=== PATIENT | male | born 1955 | race Caucasian/White ===

== ENCOUNTER 2017-07-25 00:38 | Inpatient (IN) | payer OTHER ==
[2017-07-25] VITALS (23 sets, daily range): BP systolic 76–106; BP diastolic 43–79; PULSE 90–110; RESP 14–21; Ht 157.5 cm; Wt 82.6 kg
[~2017-07-25] VITALS: Ht 157.5 cm; Wt 82.6 kg
[2017-07-25] MEDS ORDERED: SOD CHLORIDE 0.9% 1,000 ML IV ONE (02:30)
[2017-07-25] MEDS ORDERED: morphine 2 MG INJ IV PRN (02:30)
[2017-07-25] MEDS ORDERED: ONDANSETRON 4 MG INJ IV PRN (02:30)
[2017-07-25] MEDS ORDERED: SOD CHLORIDE 0.9% 1,000 ML IV SCH (03:40)
[2017-07-25] MEDS ORDERED: ALLO100T PO (03:44)
[2017-07-25] MEDS ORDERED: DOCU-144 PO (03:44)
--- NOTE | 2017-07-25 09:06 | HP ---
DATE OF ADMISSION: 07/25/2017 PRESENTING COMPLAINT: Abdominal distention and discomfort. HISTORY OF PRESENT COMPLAINT: This is a 61-year-old male who had presented to the emergency room at an outside hospital with complaints of abdominal pain and a feeling that his abdomen is about to explode. A little bit of history on this patient, he has a history of HCC lymphoma, which had gone into remission a few years back, but came back in April and was restarted on chemotherapy. He undergoes chemotherapy, it sounds like every week and has been doing this since April. However, he has developed ascites, which is thought to be malignant and is scheduled also for a weekly paracentesis. He had his last paracentesis last Wednesday and is due for 1 on Wednesday, but the patient could not wait. His abdomen shows extremely tense. He feels very uncomfortable, feels like he cannot breathe, he cannot lie down still and so he had gone to the emergency room to be evaluated. Over in the emergency room, unfortunately he was noted to have a low blood pressure with systolic in the 80s and as such it was felt that it was not to do a paracentesis at that time. Suggestion was made to admit him and then resuscitate him and do a paracentesis when it was safer. He however, had to be transferred to our facility due to insurance reasons. At this time, his symptoms persist, but he has remained uncomfortable and unable to lie still or flat and blood pressure still is on the low side. Although, he said he felt a little bit better and so he was given something to eat. PAST MEDICAL HISTORY: 1. Hypertension. 2. Lymphoma. SURGICAL HISTORY: Eye surgery in the past. MEDICATIONS: The patient was on: 1. Amlodipine 10 daily, but has not taken any in a long time because of low blood pressure. 2. Claritin 10 mg daily. 3. Tramadol as needed. SOCIAL HISTORY: The patient quit smoking. Does not drink alcohol. Has good family support. is at bedside. REVIEW OF SYSTEMS: A 12 point review of systems pertinent findings as noted in HPI. FAMILY HISTORY: Noncontributory. PHYSICAL EXAMINATION: VITAL SIGNS: His vital signs here, his temperature 98.7, heart rate 107, respiratory rate 20, blood pressure has stayed in the 70s to 100s and systolics and diastolics in the 50s to 60s. Saturation of 94 percent. Has required oxygen via nasal cannula 2 L. He is maintained on room air. He does desaturate to as low as 90. GENERAL: Examination, I found a well-developed gentleman who is quite uncomfortable. FH, NC. Alert and oriented. Head is normocephalic. NECK: No evidence of trauma. HEENT: Pupils equal, round, and reactive to light. There was no scleral jaundice. Oropharynx is clear. Neck supple and nontender. CHEST: Clear to auscultation, but with diminished air entry on both sides. CARDIOVASCULAR: He is mildly tachycardic without murmurs. ABDOMEN: Significantly distended and tense. Bowel sounds are barely audible. However there is no rebound. There is no guarding. SKIN: Devoid of rash or jaundice. BACK: There is no paravertebral tenderness. EXTREMITIES: Lower extremities is positive for pitting edema all the way up to his knee. However, there is no joint swelling or deformity. NEUROLOGICALLY: He has no focal deficit and psychologic he was calm, cooperative with exam. LAB VALUES: Hemoglobin was a little on the low side at 11, platelet count was also a little on the low side at 122 as was his white blood cell count of 3.4 consistent with a pancytopenia, which could be chemo related. On his chemistry had a potassium of 5.3, but there was a note about possible hemolysis, sodium was low at 130 as was his chloride. BUN and creatinine were elevated at 57 and 1.65. Albumin level was low on the low side at 2.7. AST, ALT were mildly elevated at 47. Estimated GFR was calculated to be 42 at that time. Lactic acid was elevated at 3.2. ProBNP was 725, PT 14.8 and INR of 1.2. His EKG was said to have showed sinus tachycardia with a rate of 121 without evidence of active ischemia. Radiology showed elevation of the right diaphragm, causing the right lower lobe atelectasis. With extension of hepatic flexure of the colon may be causing the elevation of diaphragm. Urinalysis did have some proteinuria and white cells. There is no bacteria and there was no blood loss. ASSESSMENT: The patient is a 61-year-old male, who presents with abdominal pain and distention secondary to recurrent ascites, managed as follows: 1. Malignant ascites, recurrent. 2. Abdominal pain and discomfort with shortness of breath secondary to number 1. 3. Recurrent hepatocellular carcinoma, currently on chemotherapy managed out of [facility]. 4. Acute kidney injury. Rule out chronic kidney disease. 5. Pancytopenia, which could be secondary to chemotherapy without gross coagulopathy. 6. Hypertension, which could be as a result of recurrent paracentesis. 7. Lactic acidosis. 8. History of hypertension, but patient is currently hypotensive. 9. Mild hypoxia secondary to tense ascites. ASSESSMENT AND PLAN: Unfortunately the patient is slightly unstable to have a paracentesis done at that time, which will likely improve his symptoms but may worsen his overall systemic picture and as such we will admit him and resuscitate him somewhat. We will commence IV fluid hydration gently and see how his blood pressure responds to that. We will also try to retrieve reports from [facility] to see where he stands with his lymphoma and see what to do after that. I doubt the bacterial peritonitis as patient has no other clinical symptoms other than discomfort. He does not have significant pain. She will be monitored on telemetry floor, will trend lactic acid levels and essentially see how he does. Further interventions will depend on his clinical course. His overall prognosis is guarded. For prophylaxis, he will only be on a PPI as well as SCDs. Dictated By: Macey Li MD /kwesi/magdalena /Document#: [id number]
[2017-07-25 09:27] LABS: INR 1.14; PROTIME 14.6 Sec (12.2-14.2); PT RATIO 1.1
[2017-07-25 09:28] LABS: PARTIAL THROMBOPLASTIN TIME 26.5 Sec (25.0-35.0)
[2017-07-25] MEDS: MIDODRINE 5 MG TAB PO SCH ×3 (09:57→16:59)
[2017-07-25] MEDS: ALLOPURINOL 100 MG TAB PO SCH (09:57)
[2017-07-25 10:32] LABS: ABNORMAL IP MESSAGE 1; HEMATOCRIT 33.1 % (42.0-52.0); HEMOGLOBIN 11.1 g/dl (14.0-18.0); LYMPHOCYTES # 0.1 10^3/ul (0.8-2.9); LYMPHOCYTES % 2.9 % (15.0-51.0); MEAN CORPUSCULAR HGB CONC 33.5 g/dl (32.0-37.0); MEAN CORPUSCULAR VOLUME 86.4 fl (82.0-101.0); MEAN PLATELET VOLUME 9.4 fl (7.4-10.4); MONOCYTE # 0.2 10^3/ul (0.3-0.9); MONOCYTES % 7.3 % (0.0-11.0); NEUTROPHILS % 89.4 % (39.0-77.0); NUCLEATED RED BLOOD CELLS% 0.7 /100WBC (0.0-0.0); PLATELET COUNT 86 10^3/UL (140-415); POSITIVE DIFF @See below; RED BLOOD COUNT 3.83 10^6/ul (4.70-6.10); WHITE BLOOD COUNT 2.8 10^3/ul (4.8-10.8)
[2017-07-25 11:05] LABS: INR 1.16; PROTIME 14.9 Sec (12.2-14.2); PT RATIO 1.2
[2017-07-25 11:06] LABS: PARTIAL THROMBOPLASTIN TIME 27.2 Sec (25.0-35.0)
[2017-07-25 11:09] LABS: ALBUMIN 2.2 g/dl (3.3-4.9); ALBUMIN/GLOBULIN RATIO 1.1; BILIRUBIN,INDIRECT 0.5 mg/dl (0-1.1); BILIRUBIN,TOTAL 0.5 mg/dl (0.2-1.3); CALCIUM 7.7 mg/dl (8.4-10.2); CREATININE 1.08 mg/dl (0.61-1.24); POTASSIUM 4.8 mmol/L (3.5-5.1); TOTAL PROTEIN 4.2 g/dl (6.1-8.1)
--- NOTE | 2017-07-25 12:35 | PN ---
Date/Time of Note Date/Time of Note DATE: 07/25/17 TIME: 12:31 Assessment/Plan VTE Prophylaxis VTE Prophylaxis Intervention: SCD's Lines/Catheters IV C[facility]ter Type (from [facility]): Peripheral IV Urinary Cath still in place: No Assessment/Plan Assessment/Plan 61 yo M with known hx of lymphoma with resultant ascites requiring LVPs here for symptomatic ascites. PLAN LVP. 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 His main complaint is discomfort related to his massive ascites Exam/Review of Systems Vital Signs Vitals Vital Signs Date Time Temp Pulse Resp B/P Pulse Ox O2 Delivery O2 Flow Rate FiO2 07/25/17 08:00 Nasal Cannula 2.0 07/25/17 08:00 97.6 109 20 101/77 95 Intake and Output 07/24/17 07/24/17 07/25/17 14:59 22:59 06:59 Intake Total 1365 ml Output Total 1250 ml Balance 115 ml Exam uncomfortable lungs clear abd with massive ascities 1+ pitting LE edema Results Result Diagram: 07/25/17 1025 07/25/17 1025 Results 24 hrs Laboratory Tests Test 07/25/17 08:07 07/25/17 10:25 Prothrombin Time 14.6 H 14.9 H Prothrombin Time Ratio 1.1 1.2 INR International Normalized Ratio 1.14 1.16 Activated Partial Thromboplast Time 26.5 27.2 Lactic Acid Level 2.1 H Magnesium Level 2.1 White Blood Count 2.8 L Red Blood Count 3.83 L Hemoglobin 11.1 L Hematocrit 33.1 L Mean Corpuscular Volume 86.4 Mean Corpuscular Hemoglobin 29.0 Mean Corpuscular Hemoglobin Concent 33.5 Red Cell Distribution Width 21.0 H Platelet Count 86 L Mean Platelet Volume 9.4 Neutrophils % 89.4 H Lymphocytes % 2.9 L Monocytes % 7.3 Eosinophils % 0.0 Basophils % 0.0 Nucleated Red Blood Cells % 0.7 H Neutrophils # (Manual) 2.5 Lymphocytes # 0.1 L Monocytes # 0.2 L Eosinophils # 0.0 Basophils # 0.0 Nucleated Red Blood Cells # 0.0 Sodium Level 134 L Potassium Level 4.8 Chloride Level 104 Carbon Dioxide Level 22 Anion Gap 13 Blood Urea Nitrogen 45 H Creatinine 1.08 Glucose Level 116 Calcium Level 7.7 L Total Bilirubin 0.5 Direct Bilirubin 0.00 Indirect Bilirubin 0.5 Aspartate Amino Transf (AST/SGOT) 47 H Alanine Aminotransferase (ALT/SGPT) 68 Alkaline Phosphatase 290 H Total Protein 4.2 L Albumin 2.2 L Globulin 2.00 Albumin/Globulin Ratio 1.10 Medications Medications Current Medications Morphine Sulfate (morphine) 2 mg Q2H PRN IV PAIN; Start 07/25/17 at 02:30 Ondansetron HCl (Zofran Inj) 4 mg Q6H PRN IV NAUSEA AND/OR VOMITING; Start at 02:30 Allopurinol (Zyloprim) 100 mg DAILY PO Last administered on 07/25/17 09:57; Admin Dose 100 MG; Start 07/25/17 at 09:00 Midodrine (Proamatine) 5 mg TID@, PO Last administered on 07/25/17 09: 57; Admin Dose 5 MG; Start 07/25/17 at 09:00; Stop 07/26/17 at 08:59 DANIELA MACIEL MD Jul 25, 2017 12:35
[2017-07-25] MEDS ORDERED: LIDOCAINE 1% (MPF) 5 ML VIAL ONE (12:54)
--- NOTE | 2017-07-25 13:34 | RADRPT ---
PROCEDURE: Ultrasound guided paracentesis. CLINICAL INDICATION: Ascites and shortness of breath. COMPARISON: No prior studies are available for comparison. TECHNIQUE: The risks, benefits, and alternatives were explained to the patient and/or the patient's family, inc luding but not limited to bleeding, infection, pain, visceral or vascular damage, shock, and . The patient and/or the patient's family understood the risks and the alternatives and wished to pro ceed with the procedure. Informed written consent was obtained. A procedural time out was performed . The patient's name, date of , and procedure to be performed were verified. Utilizing ultrasound guidance, optimal location for entry to the peritoneal cavity was ascertained. The overlying skin was prepped and draped in the usual sterile fashion. Approximately 10 ml of 1% Xylocaine was injected locally for pain control. Using ultrasound guidance, an 8 Wallisian catheter wa s introduced into the peritoneal cavity in the right lower quadrant without difficulty. FINDINGS: Initial images demonstrate ascites. Approximately 5.95 liters of serous fluid was aspirated and dis carded. The patient tolerated the procedure well without complication. IMPRESSION: 1. Successful ultrasound-guided paracentesis. RPTAT: QQ .Speedy Orosco MD, Date Time Electronically viewed and signed by .Speedy Orosco MD, on 07/25/2017 13:34 .R/
[2017-07-25] MEDS: ALBUMIN HUMAN 25% 100 ML IV SCH ×2 (14:09→16:02)
[2017-07-26] VITALS (9 sets, daily range): BP systolic 86–98; BP diastolic 54–60; PULSE 60–110; RESP 18
[2017-07-26] MEDS: MIDODRINE 5 MG TAB PO SCH (05:39)
[2017-07-26 07:02] LABS: ABNORMAL IP MESSAGE 1; EOSINOPHILS % 0.4 % (0.0-7.0); HEMATOCRIT 32.7 % (42.0-52.0); HEMOGLOBIN 10.5 g/dl (14.0-18.0); LYMPHOCYTES # 0.1 10^3/ul (0.8-2.9); LYMPHOCYTES % 3.6 % (15.0-51.0); MEAN CORPUSCULAR HEMOGLOBIN 27.9 pg (29.0-33.0); MEAN CORPUSCULAR HGB CONC 32.1 g/dl (32.0-37.0); MONOCYTE # 0.4 10^3/ul (0.3-0.9); MONOCYTES % 12.5 % (0.0-11.0); NEUTROPHILS % 82.8 % (39.0-77.0); NUCLEATED RED BLOOD CELLS% 1.1 /100WBC (0.0-0.0); PLATELET COUNT 75 10^3/UL (140-415); POSITIVE DIFF @See below; RED BLOOD COUNT 3.76 10^6/ul (4.70-6.10); RED CELL DISTRIBUTION WIDTH 21.4 % (11.5-14.5); WHITE BLOOD COUNT 2.8 10^3/ul (4.8-10.8)
[2017-07-26 07:34] LABS: ALBUMIN 2.3 g/dl (3.3-4.9); ALBUMIN/GLOBULIN RATIO 1.27; BILIRUBIN,INDIRECT 0.5 mg/dl (0-1.1); BILIRUBIN,TOTAL 0.5 mg/dl (0.2-1.3); POTASSIUM 4.8 mmol/L (3.5-5.1); TOTAL PROTEIN 4.1 g/dl (6.1-8.1)
[2017-07-26] MEDS: ALLOPURINOL 100 MG TAB PO SCH (08:41)
[2017-07-26] MEDS ORDERED: ALBUMIN HUMAN 25% 50 ML IV STA (11:45)
--- NOTE | 2017-07-26 11:47 | PDOCDIS ---
Discharge Instructions CONDITION Patient Condition: Stable HOME CARE INSTRUCTIONS: Your diet recommendation is: 2 gm sodium diet FOLLOW UP/APPOINTMENTS Follow-up Plan Follow-up with [facility] hematology/oncology team, patient has appointment today at 2 PM. 2.Follow up with primary care physician in 1 week If you don't have one please let someone know, we can give you resources that may help you pick one. You may also call your insurance company to assign one to you. Review your medication list with your nurse before leaving and if you need new prescriptions please let your nurse know. I may have made changes to your home medications or given you new prescriptions, please let your primary doctor know as well. Stay compliant with your medications and report any side effects to your PCP or pharmacist. Return to the ER if you have any concerns and cannot reach your doctors or call your insurance company, they usually have a nurse that can help you. 3. Call 911 or go to the nearest emergency room if experiencing loss of consciousness, dizziness, chest pain, shortness of breath, vomiting/abdominal pain, speech difficulties, motor weakness or any unusual symptoms. MELITA CUELLAR NP Jul 26, 2017 11:47
[2017-07-26] MEDS ORDERED: FURO-110 PO (11:50)
--- NOTE | 2017-07-26 16:00 | DS ---
Date/Time of Note Date/Time of Note DATE: 07/26/17 TIME: 15:54 Discharge Summary Admission/Discharge Info Admit Date/Time Jul 25, 2017 at 01:37 Discharge Date/Time Jul 26, 2017 at 13:30 Discharge Diagnosis 1. Malignant ascites, recurrent.status post paracentesis 2. Hepatocellular carcinoma, currently on chemotherapy managed out of [facility]. 3. Pancytopenia,likely secondary to chemotherapy 4. History of HTN, now with asymptomatic hypotension 2/2 multiple paracentesis. 7. Lactic acidosis. Patient Condition: Stable Procedures 07/25/17. Successful ultrasound-guided paracentesis, 5.95 L out Hospital Course This is a 61-year-old male with a past medical history of hypertension, former smoker, lymphoma, pancytopenia who is also undergoing chemotherapy, malignant ascites requiring multiple paracentesis, who initially presented to outside hospitalemergency room for evaluation of abdominal distention making him very uncomfortable and difficulty with breathing. He was noted with low blood pressure which upon presentation, patient had low blood pressure and was not able to do paracentesis and a decision was made to admit him. Therefore, he was transferred to [facility] for inpatient workup he was then transferred to [facility] due to insurance status. Blood pressure was monitored closely. On 07/25/2017, he had undergone successful paracentesis with 5.95 L of serous fluid out. Patient tolerated the procedure well. Postprocedure, patient was treated with albumin 25% 2 doses. His labs and vital signs remained stable. As the plan was to have oncology evaluation in house and getting further reports from [facility], patient and family requested to get discharged as they have a follow-up appointment at [facility] with his regular oncologist today at 2 PM. Patient was feeling back to his baseline. He was able to tolerate diet and activities well. Abdominal distention was back to baseline without any further discomfort. There was no further respiratory compromise. At this time, it is safe to discharge patient as his symptoms have improved and he can follow-up with his oncologist today at [address] [facility]. Low dose diuretics was recommended up on discharge with BP monitoring due to third-spacing of fluids and recurrent frequent paracentesis. Patient and family in agreement for discharge. Disposition: Patient will be discharged home today as he has an outpatient appointment at [facility] at 2 PM for his oncology workup. Approximately 60 minutes was spent on coordinating the discharge on this patient. Case discussed with Dr. Rosa. Home Meds Active Scripts Furosemide* (Lasix*) 20 Mg Tablet, 20 MG PO BID, #60 TAB Prov:MELITA CUELLAR V. HEARING AID REPAIRER 07/26/17 Reported Medications Docusate Sodium* (Colace*) 100 Mg Capsule, 100 MG PO BID Y for CONSTIPATION, # 60 CAP 07/25/17 Allopurinol* (Allopurinol*) 100 Mg Tablet, 100 MG PO DAILY, TAB 07/25/17 Follow-up Plan OME CARE INSTRUCTIONS: Your diet recommendation is: 2 gm sodium diet FOLLOW UP/APPOINTMENTS Follow-up Plan Follow-up with [facility] hematology/oncology team, patient has appointment today at 2 PM. 2.Follow up with primary care physician in 1 week If you don't have one please let someone know, we can give you resources that may help you pick one. You may also call your insurance company to assign one to you. Review your medication list with your nurse before leaving and if you need new prescriptions please let your nurse know. I may have made changes to your home medications or given you new prescriptions, please let your primary doctor know as well. Stay compliant with your medications and report any side effects to your PCP or pharmacist. Return to the ER if you have any concerns and cannot reach your doctors or call your insurance company, they usually have a nurse that can help you. 3. Call 911 or go to the nearest emergency room if experiencing loss of consciousness, dizziness, chest pain, shortness of breath, vomiting/abdominal pain, speech difficulties, motor weakness or any unusual symptoms. Primary Care Provider Not On Staff Doctor Pending Labs Laboratory Tests Test 07/26/17 06:04 White Blood Count 2.810^3/ul (4.8-10.8) Red Blood Count 3.7610^6/ul (4.70-6.10) Hemoglobin 10.5g/dl (14.0-18.0) Hematocrit 32.7% (42.0-52.0) Mean Corpuscular Volume 87.0fl (82.0-101.0) Mean Corpuscular Hemoglobin 27.9pg (29.0-33.0) Mean Corpuscular Hemoglobin Concent 32.1g/dl (32.0-37.0) Red Cell Distribution Width 21.4% (11.5-14.5) Platelet Count 7510^3/UL (140-415) Mean Platelet Volume 10.0fl (7.4-10.4) Neutrophils % 82.8% (39.0-77.0) Lymphocytes % 3.6% (15.0-51.0) Monocytes % 12.5% (0.0-11.0) Eosinophils % 0.4% (0.0-7.0) Basophils % 0.0% (0.0-2.0) Nucleated Red Blood Cells % 1.1/100WBC (0.0-0.0) Neutrophils # (Manual) 2.310^3/ul (1.7-7.5) Lymphocytes # 0.110^3/ul (0.8-2.9) Monocytes # 0.410^3/ul (0.3-0.9) Eosinophils # 0.010^3/ul (0.0-0.5) Basophils # 0.010^3/ul (0.0-0.1) Nucleated Red Blood Cells # 0.010^3/ul (0.0-0.0) Sodium Level 137mmol/L (135-144) Potassium Level 4.8mmol/L (3.5-5.1) Chloride Level 104mmol/L (97-110) Carbon Dioxide Level 23mmol/L (21-31) Anion Gap 15 (8-16) Blood Urea Nitrogen 36mg/dl (7-20) Creatinine 1.00mg/dl (0.61-1.24) Glucose Level 102mg/dl (70-220) Calcium Level 8.0mg/dl (8.4-10.2) Total Bilirubin 0.5mg/dl (0.2-1.3) Direct Bilirubin 0.00mg/dl (0.00-0.20) Indirect Bilirubin 0.5mg/dl (0-1.1) Aspartate Amino Transf (AST/SGOT) 46IU/L (15-46) Alanine Aminotransferase (ALT/SGPT) 59IU/L (13-69) Alkaline Phosphatase 304IU/L (42-121) Total Protein 4.1g/dl (6.1-8.1) Albumin 2.3g/dl (3.3-4.9) Globulin 1.80g/dl (1.3-3.2) Albumin/Globulin Ratio 1.27 MELITA CUELLAR NP Jul 26, 2017 16:00
== END 2017-07-26 13:30 | disposition home or self-care (01) | DRG 435 ==
LOC: MS1 01:37 → EDSEX 01:37 → ICU 06:46 → TEL 17:28
PROVIDERS: ADMIT Family Medicine; ATTEND Family Medicine
PROC: 0W9G3ZZ Drainage of Peritoneal Cavity, Percutaneous Approach (ICD-10-PCS; principal; 2017-07-25)
DX: C22.9 Malignant neoplasm of liver, not specified as primary or secondary (principal); D61.810 Antineoplastic chemotherapy induced pancytopenia; R18.0 Malignant ascites; I95.9 Hypotension, unspecified; N17.9 Acute kidney failure, unspecified; E87.2 Acidosis; Z87.891 Personal history of nicotine dependence; I10 Essential (primary) hypertension; R09.02 Hypoxemia; Z85.72 Personal history of non-Hodgkin lymphomas
CPT/HCPCS: 80053; 83605; 83735; 85025; 85610; 85730; 87081; J7030; P9047

== ENCOUNTER 2017-07-30 10:40 | Emergency (ER) | payer MEDICAID, OTHER ==
[~2017-07-30] VITALS: Ht 167.6 cm; Wt 76.0 kg
[~2017-07-30 10:40] MED LIST: ALLO100T PO; DOCU-144 PO; FURO-110 PO
[2017-07-30 10:47] VITALS: Ht 167.6 cm; Wt 76.0 kg
--- NOTE | 2017-07-30 11:20 | QN ---
Documentation Comment Patient presents for abdominal pain and ascites. I did review the laboratory studies from just a few days ago which showed normal coagulation studies. I ordered an ultrasound-guided paracentesis for this patient. A full H&P will be done once the patient is seen and fully evaluated. Medical screening exam was initiated. ROSITA LEPE MD Jul 30, 2017 11:20
[2017-07-30] MEDS ORDERED: SPIR25TA PO (12:15)
[2017-07-30] MEDS ORDERED: LIDOCAINE 1% (MPF) 5 ML VIAL ONE (13:31)
--- NOTE | 2017-07-30 13:53 | RADRPT ---
PROCEDURE: Ultrasound guided paracentesis. CLINICAL INDICATION: Ascites and shortness of breath. COMPARISON: 07/25/2017. TECHNIQUE: The risks, benefits, and alternatives were explained to the patient and/or the patient's family, inc luding but not limited to bleeding, infection, pain, visceral or vascular damage, shock, and . The patient and/or the patient's family understood the risks and the alternatives and wished to pro ceed with the procedure. Informed written consent was obtained. A procedural time out was performed . The patient's name, date of , and procedure to be performed were verified. Utilizing ultrasound guidance, optimal location for entry to the peritoneal cavity was ascertained. The overlying skin was prepped and draped in the usual sterile fashion. Approximately 10 ml of 1% Xylocaine was injected locally for pain control. Using ultrasound guidance, an 8 Portuguese catheter wa s introduced into the peritoneal cavity in the left lower quadrant without difficulty. FINDINGS: Initial images demonstrate ascites. Approximately 3.8 liters of serous fluid was aspirated and disc arded. The patient tolerated the procedure well without complication. IMPRESSION: 1. Successful ultrasound-guided paracentesis. RPTAT: QQ .Speedy Orosco MD, Date Time Electronically viewed and signed by .Speedy Orosco MD, on 07/30/2017 13:52 .R/
--- NOTE | 2017-07-30 14:15 | ERD ---
ER Documentation Chief Complaint Date/Time DATE: 07/30/17 TIME: 14:13 Chief Complaint abdominal pain Hx of ascites HPI Patient is a 61-year-old male with a history of stomach cancer and ascites who presents with "water in my belly". It started in April after he was diagnosed with stomach cancer. He has had multiple paracentesis done since then and his last was on Wednesday. He says the swelling is worse when he lays down. He has no shortness of breath and no fevers. He denies pain. ROS All systems reviewed and are negative except as per history of present illness. Medications Home Meds Active Scripts Furosemide* (Lasix*) 20 Mg Tablet, 20 MG PO BID, #60 TAB Prov:MELITA CUELLAR V. TUYERE FITTER 07/26/17 Reported Medications Spironolactone* (Aldactone*) 25 Mg Tablet, 25 MG PO DAILY, #30 TAB 07/30/17 Allopurinol* (Allopurinol*) 100 Mg Tablet, 100 MG PO DAILY, TAB 07/25/17 Discontinued Reported Medications Docusate Sodium* (Colace*) 100 Mg Capsule, 100 MG PO BID Y for CONSTIPATION, # 60 CAP 07/25/17 Allergies Allergies: Coded Allergies: No Known Allergy (Unverified , 07/30/17) PMhx/Soc History of Surgery: No (BMT 11/2015) Anesthesia Reaction: No Hx Neurological Disorder: No Hx Respiratory Disorders: No Hx Cardiac Disorders: No Hx Psychiatric Problems: No Hx Miscellaneous Medical Probl: Yes (lymphoma since 10yrs ago (remission& recurrence)) Hx Alcohol Use: No Hx Substance Use: No Hx Tobacco Use: Yes FmHx Family History: diabetes Physical Exam Vitals Vital Signs Date Time Temp Pulse Resp B/P Pulse Ox O2 Delivery O2 Flow Rate FiO2 07/30/17 10:47 98.3 121 20 96/57 95 Physical Exam Const: Chronically ill Head: Atraumatic Eyes: Normal Conjunctiva ENT: Normal External Ears, Nose and Mouth. Neck: Full range of motion..~ No meningismus. Resp: Clear to auscultation bilaterally Cardio: Regular rate and rhythm, no murmurs Abd: Soft, Distended abdomen with positive fluid wave Skin: Jaundice Back: No midline or flank tenderness Ext: No cyanosis, or edema Neur: Awake and alert Psych: Normal Mood and Affect Results 24 hrs Current Medications Medications (Trade) Dose Ordered Sig/Yanira Route PRN Reason Start Time Stop Time Status Last Admin Dose Admin Lidocaine (Xylocaine 1% (Mpf)) 5 ml STK-MED ONCE .ROUTE 07/30/17 13:31 07/30/17 13:32 DC 07/30/17 13:44 Procedures/MDM Patient is a 61-year-old male with stomach cancer and ascites who presents with ascites. At this point I doubt spontaneous bacterial peritonitis. The patient came in for a paracentesis. He had laboratories done on July 26 and I do not feel these need to be repeated. The patient had an ultrasound-guided paracentesis and feels better. He will be discharged home and can follow-up with his primary doctor [facility] within 24-48 hours. He can return for any worsening symptoms. Given his age and comorbidity his prognosis is poor. Departure Diagnosis: Primary Impression: Ascites Ascites type: malignant Qualified Code: R18.0 - Malignant ascites Condition: Fair Patient Instructions: Ascites Referrals: Your doctor at [facility] Additional Instructions: Llame al doctor MAJULIANN y cecilia gomez RON PARA DENTRO DE 1-2 SHERMAN.Dgale a la secretaria que nosotros le instruimos hacer esta ron.Avise o llame si campa condicin se empeora antes de la ron. Regresa aqui si peor o no mejor. ROSITA LEPE MD Jul 30, 2017 14:15
[2017-07-30 14:51] VITALS: BP 85/52; PULSE 122; RESP 20
== END 2017-07-30 14:52 | disposition home or self-care (01) ==
LOC: E/R 10:40
DX: C16.9 Malignant neoplasm of stomach, unspecified (principal); R18.0 Malignant ascites; Z87.891 Personal history of nicotine dependence
CPT/HCPCS: Z7502; Z7610

== ENCOUNTER 2017-08-01 09:54 | Inpatient (IN) | payer MEDICAID ==
[~2017-08-01] VITALS: Ht 157.5 cm; Wt 80.0 kg
[~2017-08-01 09:54] MED LIST changes: -DOCU-144 PO; +SPIR25TA PO
[2017-08-01] MEDS ORDERED: SODIUM CHLORIDE 0.9% 1L BAG IV* STA (11:01)
[2017-08-01] MEDS ORDERED: ONDANSETRON 4 MG INJ IV STA (11:01)
--- NOTE | 2017-08-01 11:08 | ERA ---
ER Documentation Chief Complaint Date/Time DATE: 08/01/17 TIME: 11:04 Chief Complaint NAUSEA /VOMITING H/O ASCITIES HPI Patient is a 61-year-old male who presents with gradual onset, constant, moderate to severe generalized weakness associated with near syncope for 2-3 days. Patient has also had several episodes of emesis of green fluid. The patient reports having dark stools but no diarrhea. Patient denies chest pain, shortness of breath, fever, abdominal pain. 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 The patient's last chemotherapy was July 22. ROS All systems reviewed and are negative except as per history of present illness. Medications Home Meds Active Scripts Furosemide* (Lasix*) 20 Mg Tablet, 20 MG PO BID, #60 TAB Prov:MELITA CUELLAR V. PACKAGING TECH 07/26/17 Reported Medications Ondansetron Hcl* (Zofran*) 8 Mg Tab, 8 MG PO Q8H Y for NAUSEA AND OR VOMITING, TAB 08/01/17 Spironolactone* (Aldactone*) 25 Mg Tablet, 25 MG PO DAILY, #30 TAB 07/30/17 Allopurinol* (Allopurinol*) 100 Mg Tablet, 100 MG PO DAILY, TAB 07/25/17 Discontinued Reported Medications Docusate Sodium* (Colace*) 100 Mg Capsule, 100 MG PO BID Y for CONSTIPATION, # 60 CAP 07/25/17 Allergies Allergies: Coded Allergies: No Known Allergy (Unverified , 08/01/17) PMhx/Soc Past medical history: Lymphoma Past surgical history: None Social history: No tobacco, alcohol or illicit drugs History of Surgery: No (BMT 11/2015) Anesthesia Reaction: No Hx Neurological Disorder: No Hx Respiratory Disorders: No Hx Cardiac Disorders: No Hx Psychiatric Problems: No Hx Miscellaneous Medical Probl: Yes (lymphoma since 10yrs ago (remission& recurrence)) Hx Alcohol Use: No Hx Substance Use: No Hx Tobacco Use: Yes Smoking Status: Former smoker FmHx Family History: No coronary disease, No diabetes Physical Exam Vitals Vital Signs Date Time Temp Pulse Resp B/P Pulse Ox O2 Delivery O2 Flow Rate FiO2 08/01/17 15:12 98.3 126 16 88/61 97 Room Air 2.0 08/01/17 13:00 98.1 127 18 84/59 97 Room Air 2.0 08/01/17 12:50 122 20 97 Nasal Cannula 2.0 08/01/17 12:00 98.1 69 16 89/62 100 Room Air 08/01/17 09:57 98.1 66 18 98/54 100 Physical Exam Const: Alert, no acute distress Head: Atraumatic Eyes: Conjunctival pallor, no icterus ENT: Normal External Ears, Nose and Mouth.Tacky mucous membranes Neck: Full range of motion..~ No meningismus. Resp: Clear to auscultation bilaterally, No wheezes, no rales Cardio: Tachycardia, regularrhythm, no murmurs Abd: Soft, non tender, Mild distention. Skin: No petechiae or rashes Back: No midline or flank tenderness Ext: No cyanosis,1+ edema to left lower extremity, 3+ edema to right lower extremity Neur: Awake and alert, Cranial nerves II through XII intact bilaterally, strength and sensation full in 4 extremities. Psych: Normal Mood and Affect Result Diagram: 08/01/17 1100 08/01/17 1330 Results 24 hrs Laboratory Tests Test 08/01/17 11:00 08/01/17 13:30 08/01/17 14:00 08/01/17 14:21 White Blood Count 8.510^3/ul Red Blood Count 4.4610^6/ul Hemoglobin 12.8g/dl Hematocrit 38.4% Mean Corpuscular Volume 86.1fl Mean Corpuscular Hemoglobin 28.7pg Mean Corpuscular Hemoglobin Concent 33.3g/dl Red Cell Distribution Width 23.4% Platelet Count 91816^3/UL Mean Platelet Volume 10.3fl Neutrophils % 81.8% Lymphocytes % 7.3% Monocytes % 10.0% Eosinophils % 0.0% Basophils % 0.1% Nucleated Red Blood Cells % 0.2/100WBC Neutrophils # (Manual) 6.910^3/ul Lymphocytes # 0.610^3/ul Monocytes # 0.910^3/ul Eosinophils # 0.010^3/ul Basophils # 0.010^3/ul Nucleated Red Blood Cells # 0.010^3/ul Prothrombin Time 14.3Sec Prothrombin Time Ratio 1.1 INR International Normalized Ratio 1.11 Activated Partial Thromboplast Time 25.8Sec Stool Occult Blood NEGATIVE Sodium Level 127mmol/L 128mmol/L Potassium Level 6.5mmol/L 5.3mmol/L Chloride Level 98mmol/L 105mmol/L Carbon Dioxide Level 18mmol/L 18mmol/L Anion Gap 18 10 Blood Urea Nitrogen 45mg/dl 44mg/dl Creatinine 2.52mg/dl 2.15mg/dl Glucose Level 142mg/dl 147mg/dl Lactic Acid Level 5.5mmol/L Calcium Level 9.6mg/dl 8.4mg/dl Total Bilirubin 0.7mg/dl Direct Bilirubin 0.00mg/dl Indirect Bilirubin 0.7mg/dl Aspartate Amino Transf (AST/SGOT) 45IU/L Alanine Aminotransferase (ALT/SGPT) 58IU/L Alkaline Phosphatase 240IU/L Troponin I 0.021ng/ml Total Protein 4.7g/dl Albumin 2.6g/dl Globulin 2.10g/dl Albumin/Globulin Ratio 1.23 Urine Color YELLOW Urine Clarity CLOUDY Urine pH 5.0 Urine Specific [place] 1.016 Urine Ketones NEGATIVEmg/dL Urine Nitrite NEGATIVEmg/dL Urine Bilirubin NEGATIVEmg/dL Urine Urobilinogen NEGATIVEmg/dL Urine Leukocyte Esterase NEGATIVELeu/ul Urine Microscopic RBC 1/HPF Urine Microscopic WBC 5/HPF Urine Squamous Epithelial Cells FEW/HPF Urine Bacteria FEW/HPF Urine Hyaline Casts MODERATE/HPF Urine Mucus MODERATE/HPF Urine Hemoglobin NEGATIVEmg/dL Urine Glucose 1+mg/dL Urine Total Protein 1+mg/dl Bedside Glucose 115mg/dL Test 08/01/17 15:20 Lactic Acid Level 3.2mmol/L Current Medications Medications (Trade) Dose Ordered Sig/Yanira Route PRN Reason Start Time Stop Time Status Last Admin Dose Admin Sodium Chloride (NS) 2,260 ml BOLUS OVER 2 HOURS STAT IV* 08/01/17 11:01 08/01/17 11:03 DC 08/01/17 11:32 Ondansetron HCl (Zofran Inj) 4 mg ONCE STAT IV 08/01/17 11:01 08/01/17 11:03 DC 08/01/17 11:32 Albuterol 10 mg 10 mg ONCE STAT HHN 08/01/17 12:11 08/01/17 12:13 DC 08/01/17 12:49 Ceftriaxone Sodium (Rocephin) 50 ml @ 100 mls/hr ONCE ONCE IVPB 08/01/17 12:30 08/01/17 12:59 DC 08/01/17 12:30 Insulin Human Regular (Humulin R) 6 unit ONCE ONCE IV 08/01/17 12:30 08/01/17 12:31 DC 08/01/17 14:38 Dextrose (D50w Syringe) 50 ml ONCE ONCE IV 08/01/17 12:30 08/01/17 12:31 DC 08/01/17 13:02 Vancomycin HCl VANCOMYCIN PER PHARMACY PER PROTOCOL XX 08/01/17 16:00 UNV Metronidazole 100 ml @ 100 mls/hr ONCE ONCE IVPB 08/01/17 16:00 08/01/17 16:59 Albumin Human (Albumin Human 25%) 50 ml @ 100 mls/hr ONCE ONCE IV 08/01/17 16:00 08/01/17 16:29 Lidocaine (Xylocaine 1% (Mdv) 20 ml) 10 ml ONCE ONCE IM 08/01/17 16:00 08/01/17 16:01 DC Lidocaine/ Epinephrine 20 ml 20 ml STK-MED ONCE .ROUTE 08/01/17 16:02 08/01/17 16:03 DC Norepinephrine (Levophed) 250 ml @ ud STK-MED ONCE .ROUTE 08/01/17 16:02 08/01/17 16:03 DC Procedures/MDM EKG read by me: Time 1526, rate 128 Rhythm: Sinus tachycardia [place]: Normal Intervals: Short AR interval ST-T waves: no ischemic changes Ectopy: No Q-waves: No Impression: Sinus tachycardia without evidence of ischemia Central Line Placement by me: Patient consented, sterilely draped, full prep, gown, glove, mask, time out performed. Anesthesia: 1% lidocaine locally Location: Left subclavian: Pending Device: Multiple lumen Technique: Seldinger technique. Secured with suture. Results: Venous return from all ports with easy saline flush. No complications. Guide wire retrieved and disposed of. Chest X-ray 1V: Pending MDM: Patient is a 61-year-old male with lymphoma who presents to the ER with presyncope for 2 days. He was found to be hypotensive and tachycardia, so a septic workup was initiated. There is no evidence of fever or leukocytosis, but the patient does have lactic acidosis. There is no physical exam findings suggestive of infectious source, and chest x-ray and urinalysis are not suggestive of infection. On physical exam there is low suspicion for SBP, but there was not a large fluid collection that was amenable to paracentesis in the ER. The patient was found to have acute renal failure which may be due to sepsis versus fluid shift from frequent paracentesis. He was given IV fluids, but his lactic acid remained elevated. I will give him albumin due to low underlying albumin. I do not suspect hepatorenal syndrome due to lack of diagnosis of cirrhosis. There is no evidence of anemia or GI bleed. The patient has slightly elevated mild to moderate hyperkalemia and mild hyponatremia. He was given IV insulin and dextrose for hyperkalemia and on repeat testing his potassium had improved. A central line was placed for refractory hypotension. He will be started on pressors. He was given broad- spectrum antibiotics and cultures were sent. I will check a cortisol level in case of underlying hypoadrenalism. He delayed paracentesis to be performed by IR as an inpatient if felt to be clinically indicated. He will be admitted to the ICU by Dr. Rosa. Critical Care Time: 35 minutes Treatments/Evaluations: Close monitoring and treatment of unstable vital signs, cardiorespiratory, and neurologic status, while maintaining tight balance of fluid, respiratory, and cardiac interventions. This time includes discussing the case with the patient and the patient's family. This time does not include all procedures stated elsewhere in this record. This time also includes reviewing old records, labs and radiological studies. This time includes examining and re-examining the patient. Additionally, this time also includes arranging care with admitting and consulting physicians. Departure Diagnosis: Primary Impression: Hypotension Qualified Code: I95.9 - Hypotension, unspecified hypotension type Additional Impressions: Lactic acidosis Acute renal insufficiency Hyperkalemia Hyponatremia Condition: Serious SUSAN CAZARES MD Aug 01, 2017 11:08
[2017-08-01] MEDS ORDERED: ZOF8 PO (11:26)
[2017-08-01 11:39] LABS: ABNORMAL IP MESSAGE 1; BASOPHILS % 0.1 % (0.0-2.0); HEMATOCRIT 38.4 % (42.0-52.0); HEMOGLOBIN 12.8 g/dl (14.0-18.0); LYMPHOCYTES # 0.6 10^3/ul (0.8-2.9); LYMPHOCYTES % 7.3 % (15.0-51.0); MEAN CORPUSCULAR HEMOGLOBIN 28.7 pg (29.0-33.0); MEAN CORPUSCULAR HGB CONC 33.3 g/dl (32.0-37.0); MEAN CORPUSCULAR VOLUME 86.1 fl (82.0-101.0); MEAN PLATELET VOLUME 10.3 fl (7.4-10.4); MONOCYTE # 0.9 10^3/ul (0.3-0.9); NEUTROPHILS % 81.8 % (39.0-77.0); NUCLEATED RED BLOOD CELLS% 0.2 /100WBC (0.0-0.0); POSITIVE DIFF @See below; RED BLOOD COUNT 4.46 10^6/ul (4.70-6.10); RED CELL DISTRIBUTION WIDTH 23.4 % (11.5-14.5); WHITE BLOOD COUNT 8.5 10^3/ul (4.8-10.8)
[2017-08-01 11:40] LABS: PLATELET COUNT 130 10^3/UL (140-415)
[2017-08-01 12:01] LABS: ALBUMIN 2.6 g/dl (3.3-4.9); ALBUMIN/GLOBULIN RATIO 1.23; BILIRUBIN,INDIRECT 0.7 mg/dl (0-1.1); BILIRUBIN,TOTAL 0.7 mg/dl (0.2-1.3); CALCIUM 9.6 mg/dl (8.4-10.2); CREATININE 2.52 mg/dl (0.61-1.24); TOTAL PROTEIN 4.7 g/dl (6.1-8.1)
[2017-08-01 12:05] LABS: INR 1.11; PROTIME 14.3 Sec (12.2-14.2); PT RATIO 1.1
[2017-08-01 12:06] LABS: PARTIAL THROMBOPLASTIN TIME 25.8 Sec (25.0-35.0)
--- NOTE | 2017-08-01 12:07 | RADRPT ---
PROCEDURE: US Lower extremity Venous. CLINICAL INDICATION: Pain and swelling TECHNIQUE: Multiple sonographic images of the right lower extremity deep venous system was obtaine d utilizing grayscale, color-flow, compressive sonography and doppler imaging with augmentation. Th e images were reviewed on a PACS workstation. COMPARISON: None. FINDINGS: There is normal compressibility and flow within the right common femoral, deep femoral, superficial femoral, posterior tibial, peroneal and popliteal veins. IMPRESSION: No sonographic evidence for deep venous thrombosis. RPTAT:AAJJ Physician Ina Date Time Electronically viewed and signed by Physician Ina on 08/01/2017 12:07 HANS/
[2017-08-01 12:09] LABS: POTASSIUM 6.5 mmol/L (3.5-5.1); TROPONIN-I 0.021 ng/ml (0.00-0.12)
[2017-08-01] MEDS ORDERED: ALBUTEROL 0.083% (NEB) 2.5 MG/3 ML AMP HHN STA (12:11)
--- NOTE | 2017-08-01 12:14 | RADRPT ---
PROCEDURE: Chest radiograph CLINICAL INDICATION: Possible Sepsis. COMPARISON: None relevant listed. TECHNIQUE: Single frontal chest radiograph. FINDINGS: Veil like opacity obscures the right diaphragm and costophrenic sulcus, consistent with a pleural ef fusion. The right upper lung left lung are clear. The lungs are clear. No pleural effusion or focal parenchymal opacity. The cardiomediastinal silhouette is normal. No suspicious bone lesion. Mild endplate spurring throughout the thoracic spine. IMPRESSION: Small right pleural effusion. RPTAT: PP Physician Rich Date Time Electronically viewed and signed by Physician Rich on 08/01/2017 12:13 LG/
[2017-08-01] MEDS ORDERED: INSULIN REGULAR, HUMAN 100 UNIT/1 ML 3ML VIAL IV ONE (12:30)
[2017-08-01] MEDS ORDERED: CEFTRIAXONE 2 GM/50 ML (PMX) 50 ML IVPB ONE (12:30)
[2017-08-01] MEDS ORDERED: DEXTROSE 50% 50 ML SYRINGE IV ONE (12:30)
[2017-08-01 14:07] LABS: CALCIUM 8.4 mg/dl (8.4-10.2); CREATININE 2.15 mg/dl (0.61-1.24); POTASSIUM 5.3 mmol/L (3.5-5.1)
[2017-08-01 14:47] LABS: ADD UMIC YES; UR ASCORBIC ACID NEGATIVE (NEGATIVE); UR BACTERIA FEW /HPF (NONE SEEN); UR BILIRUBIN (Dip) NEGATIVE (NEGATIVE); UR BLOOD (Dip) NEGATIVE (NEGATIVE); UR CLARITY CLOUDY (CLEAR); UR COLOR YELLOW (YELLOW); UR GLUCOSE (Dip) 1+ mg/dL (NEGATIVE); UR KETONES (Dip) NEGATIVE (NEGATIVE); UR LEUKOCYTE ESTERASE (Dip) NEGATIVE Leu/ul (NEGATIVE); UR MUCUS MODERATE /HPF (NONE SEEN); UR NITRITE (Dip) NEGATIVE (NEGATIVE); UR RBC 1 /HPF (0-5); UR SPECIFIC GRAVITY (Dip) 1.016 (1.003-1.030); UR SQUAMOUS EPITHELIAL CELL FEW /HPF (FEW); UR TOTAL PROTEIN (Dip) 1+ mg/dl (NEGATIVE); UR UROBILINOGEN (Dip) NEGATIVE (NEGATIVE)
[2017-08-01] MEDS ORDERED: metroNIDAZOLE 500 MG/NS (PMX) 100 ML IVPB ONE (16:00)
[2017-08-01] MEDS ORDERED: ALBUMIN HUMAN 25% 50 ML IV ONE (16:00)
[2017-08-01] MEDS ORDERED: VANCOMYCIN IV PER PHARMACY XX SCH (16:00)
[2017-08-01] MEDS ORDERED: LIDOCAINE 1% (MDV) 20 ML INJ IM ONE (16:00)
[2017-08-01] MEDS ORDERED: NORepinephrine 8MG/250 ML (PMX 250 ML ONE (16:02)
[2017-08-01] MEDS ORDERED: LIDOCAINE 2%/EPI MPF (SDV) 20 ML VIAL ONE (16:02)
--- NOTE | 2017-08-01 16:53 | HP ---
Date/Time of Note Date/Time of Note DATE: 08/01/17 TIME: 16:46 Assessment/Plan VTE Prophylaxis VTE Prophylaxis Intervention: SCD's Assessment/Plan Chief Complaint/Hosp Course Impression and plan 1. Near syncope. Possibly from dehydration considering patient's low blood pressure. Will provide with IV fluids for now. Follow-up on echocardiogram as well as carotid Doppler. Patient denies any complete loss of consciousness but does report having some dizziness and near fainting spells. 2. Hypotension with tachycardia. Possibly from dehydration. Will provide IV fluids. 3. Acute renal insufficiency. Patient with no reported renal history. Medications to be renally dosed. Will get v belt inspector to follow. Of note patient does report having less reported. 4. Hyperkalemia. In the setting of renal insufficiency. Will provide with Kayexalate as needed. Will get v belt inspector to follow. 5. Hyponatremia. Continue on IV fluids. 6. Lactic acidosis. Continue IVF. Follow-up on cultures. Afebrile at present. 7. Anemia. Likely of chronic disease. Monitor CBC. Admission process times greater than 40 minutes Discussed plan of care with Dr. Victoria Problems: HPI/ROS Admit Date/Time Admit Date/Time Hx of Present Illness This is a 61-year-old male with history of hypertension, and lymphoma diagnosed in 2005 who came to [facility] due to reports of increased dizziness as well as abdominal distention. Of note patient was recently hospitalized on July 25, 2017 for which she initially came in for recurrent malignant ascites. He was discharged 3 days prior to this admission. Since his discharge he again noticed that his abdomen became enlarged again with reported dizziness. Denies any actual fainting but does report some near syncope. He did come to [facility] due to the aformentiond issues. Of note he also did report that his urine output was a little bit lower before. He also had his last chemotherapy on July 22, 2017. On examination he had labs done with sodium 127 potassium of 6.5 BUN of 45 and creatinine of 2.52. Prior to this he denies any history of kidney disease. Patient was noted to be with blood pressure as low as 84/59 and tachycardic. He denies any chest pain or shortness of breath or dysuria or any subjective fevers. She does report having some nausea. We will evaluate him for the aformentiond issues. ROS 12 point review of systems obtained and entirely negative except that mentioned in history of present illness PMH/Family/Social Past Medical History Medical/surgical history 1. Lymphoma diagnosed in 2005 2. Hypertension 3. Reported retina eye surgery on the left side Social History Alcohol Use: none Smoking Status: Former smoker Drug Use: none Exam/Review of Systems Vital Signs Vitals Vital Signs Date Time Temp Pulse Resp B/P Pulse Ox O2 Delivery O2 Flow Rate FiO2 08/01/17 16:44 98.1 130 18 90/65 97 Room Air 08/01/17 15:12 2.0 Exam Constitutional: alert, oriented Psych: nl mood/affect Head: normocephalic Eyes: nl conjunctiva Neck: No jvd Respiratory: clear to auscultation, normal air movement Cardiovascular: regular rate and rhythm Gastrointestinal: other (Protuberant nontender), soft Musculoskeletal: swelling (Bilateral lower extremities) Neurological: LOGISTICS OPERATIONS MANAGER II-XII intact, nl mental status, nl speech Labs Result Diagram: 08/01/17 1100 08/01/17 1330 Medications Medications Current Medications Metronidazole 100 ml @ 100 mls/hr ONCE ONCE IVPB ; Start 08/01/17 at 16:00; Stop 08/01/17 at 16:59 Vancomycin HCl 1.5 gm/Sodium Chloride 250 ml @ 83.333 mls/ hr ONCE@17 IVPB ; Start 08/01/17 at 17:00; Stop 08/01/17 at 21:00 Vancomycin HCl (Vancocin) 250 ml @ 125 mls/hr Q24H IVPB ; Start 08/02/17 at 17: 00 Ondansetron HCl (Zofran Inj) 4 mg Q6H PRN IV NAUSEA AND/OR VOMITING; Start 08/01 at 17:00; Status UNV Acetaminophen (Tylenol Tab) 650 mg Q6H PRN PO PAIN LEVEL 1-3 OR FEVER; Start at 17:00; Status UNV Acetaminophen (Tylenol Supp) 650 mg Q6H PRN [place] PAIN LEVEL 1-3 OR FEVER; Start 08/01/17 at 17:00; Status UNV Acetaminophen/ Hydrocodone Bitart ([place] (5/325)) 1 tab Q6H PRN PO MODERATE PAIN LEVEL 4-6; Start 08/01/17 at 17:00; Status UNV Acetaminophen/ Hydrocodone Bitart ([place] (5/325)) 2 tab Q6H PRN PO SEVERE PAIN LEVEL 7-10; Start 08/01/17 at 17:00; Status UNV Morphine Sulfate (morphine) 2 mg Q4H PRN IV SEVERE PAIN LEVEL 7-10; Start at 17:00; Status UNV Docusate Sodium (Colace) 100 mg Q12H PRN PO CONSTIPATION; Start 08/01/17 at 17: 00; Status UNV Magnesium Hydroxide (Milk Of Mag) 30 ml DAILY PRN PO CONSTIPATION; Start at 17:00; Status UNV Bisacodyl (Dulcolax Supp) 10 mg DAILY PRN [place] CONSTIPATION; Start 08/01/17 at 17: 00; Status UNV Pantoprazole 40 mg 40 mg DAILY@06 IV ; Start 08/02/17 at 06:00; Status UNV Albumin Human 250 ml @ 250 mls/hr ONCE ONCE IV ; Start 08/01/17 at 17:00; Stop 08/01/17 at 17:59; Status UNV MICHAEL THOMPSON Aug 01, 2017 16:53
[2017-08-01] MEDS ORDERED: ALBUMIN HUMAN 5% 250 ML IV ONE (17:00)
[2017-08-01] MEDS ORDERED: DOCUSATE SODIUM 100 MG CAP PO PRN (17:00)
[2017-08-01] MEDS ORDERED: HYDROCODONE/APAP (5/325) TAB PO PRN ×2 (17:00)
[2017-08-01] MEDS ORDERED: BISACODYL 10 MG SUPP PR PRN (17:00)
[2017-08-01] MEDS ORDERED: NACL 0.9% 3 ML SYG IV SCH (17:00)
[2017-08-01] MEDS: SOD CHLORIDE 0.9% 1,000 ML IV SCH (17:00)
[2017-08-01] MEDS ORDERED: VANCOMYCIN 1.5 GM in SOD CHLORIDE 0.9% 250 ML IVPB SCH (17:00)
[2017-08-01] MEDS ORDERED: MAGNESIUM HYDROXIDE 30ML CUP PO PRN (17:00)
[2017-08-01] MEDS ORDERED: NORepinephrine 8MG/250 ML (PMX 250 ML IV SCH (17:00)
[2017-08-01] MEDS ORDERED: ACETAMINOPHEN 325 MG TAB PO PRN (17:00)
[2017-08-01 17:05] LABS: D-DIMER 3911.64 ng/ml (<460)
[2017-08-01] MEDS: PIPER-TAZO 2.25 GM (PMX) 50 ML IVPB SCH (18:45)
--- NOTE | 2017-08-01 18:55 | RADRPT ---
PROCEDURE: US Carotids. CLINICAL INDICATION: Near syncope TECHNIQUE: Multiple sonographic of the carotid bifurcation region and vertebral arteries were obta ined utilizing zhang scale, duplex and color-flow imaging. COMPARISON: None available FINDINGS: RIGHT CAROTID MEASUREMENTS: PSV (cm/s)EDV (cm/s) Common Carotid [id number] Internal Carotid Artery - [id number] Internal Carotid Artery - [id number] Internal Carotid Artery - [id number] External Carotid Artery-45 Vertebral Artery-37 PSVR (ICA/CCA)0.9 LEFT CAROTID MEASUREMENTS: PSV (cm/s)EDV (cm/s) Common Carotid [id number] Internal Carotid Artery - [id number] Internal Carotid Artery - [id number] Internal Carotid Artery - [id number] External Carotid Artery-46 Vertebral Artery-52 PSVR (ICA/CCA)0.8 There is antegrade flow within the vertebral arteries bilaterally. RPTAT:HJJR IMPRESSION: 1. No evidence for hemodynamically significant stenosis - validated velocity measurements with angio graphic measurements, velocity criteria are extrapolated from diameter data as defined by the Societ y of Radiologists in Ultrasound Consensus Conference Radiology 2003; 229;340-346. This study does i ndirectly reference the measurement of the distal ICA diameter as the denominator for stenosis measu rement. 2. Antegrade flow in the vertebral arteries bilaterally. Physician Humble Date Time Electronically viewed and signed by Physician Humble on 08/01/2017 18:55 JR/
[2017-08-02] VITALS (65 sets, daily range): BP systolic 77–121; BP diastolic 47–88; PULSE 129–147; RESP 18–32; TEMP 97.9; Ht 157.5 cm; Wt 80.0 kg
[2017-08-02 00:13] LABS: ABNORMAL IP MESSAGE 1; BASOPHILS % 0.1 % (0.0-2.0); HEMATOCRIT 32.3 % (42.0-52.0); LYMPHOCYTES # 0.3 10^3/ul (0.8-2.9); LYMPHOCYTES % 3.5 % (15.0-51.0); MEAN CORPUSCULAR HEMOGLOBIN 29.8 pg (29.0-33.0); MEAN CORPUSCULAR HGB CONC 34.1 g/dl (32.0-37.0); MEAN CORPUSCULAR VOLUME 87.5 fl (82.0-101.0); MEAN PLATELET VOLUME 9.9 fl (7.4-10.4); MONOCYTES % 10.4 % (0.0-11.0); NEUTROPHILS % 85.3 % (39.0-77.0); PLATELET COUNT 140 10^3/UL (140-415); POSITIVE DIFF @See below; RED BLOOD COUNT 3.69 10^6/ul (4.70-6.10); WHITE BLOOD COUNT 9.6 10^3/ul (4.8-10.8)
[2017-08-02] MEDS: PIPER-TAZO 2.25 GM (PMX) 50 ML IVPB SCH ×5 (00:35→23:02)
[2017-08-02 00:41] LABS: ALBUMIN 2.1 g/dl (3.3-4.9); ALBUMIN/GLOBULIN RATIO 1.31; BILIRUBIN,INDIRECT 0.4 mg/dl (0-1.1); BILIRUBIN,TOTAL 0.4 mg/dl (0.2-1.3); CALCIUM 8.7 mg/dl (8.4-10.2); CREATININE 2.35 mg/dl (0.61-1.24); MAGNESIUM 1.8 mg/dl (1.7-2.5); PHOSPHORUS 5.7 mg/dl (2.5-4.9); POTASSIUM 5.4 mmol/L (3.5-5.1); TOTAL PROTEIN 3.7 g/dl (6.1-8.1); URIC ACID 8.3 mg/dl (3.1-7.9)
[2017-08-02] MEDS: ONDANSETRON 4 MG INJ IV PRN ×3 (04:05→23:02)
[2017-08-02] MEDS: PANTOPRAZOLE 40 MG INJ IV SCH (05:32)
[2017-08-02 05:45] LABS: ABNORMAL IP MESSAGE 1; BASOPHILS % 0.2 % (0.0-2.0); HEMATOCRIT 36.7 % (42.0-52.0); HEMOGLOBIN 12.1 g/dl (14.0-18.0); LYMPHOCYTES # 0.4 10^3/ul (0.8-2.9); LYMPHOCYTES % 3.4 % (15.0-51.0); MEAN CORPUSCULAR HEMOGLOBIN 28.8 pg (29.0-33.0); MEAN CORPUSCULAR VOLUME 87.4 fl (82.0-101.0); MEAN PLATELET VOLUME 10.1 fl (7.4-10.4); MONOCYTE # 0.9 10^3/ul (0.3-0.9); MONOCYTES % 8.7 % (0.0-11.0); NEUTROPHILS % 86.8 % (39.0-77.0); PLATELET COUNT 143 10^3/UL (140-415); POSITIVE DIFF @See below; RED CELL DISTRIBUTION WIDTH 23.2 % (11.5-14.5); WHITE BLOOD COUNT 10.3 10^3/ul (4.8-10.8)
[2017-08-02 06:18] LABS: ALBUMIN 2.2 g/dl (3.3-4.9); ALBUMIN/GLOBULIN RATIO 1.15; BILIRUBIN,INDIRECT 0.4 mg/dl (0-1.1); BILIRUBIN,TOTAL 0.4 mg/dl (0.2-1.3); CALCIUM 9.1 mg/dl (8.4-10.2); CHOL/HDL RATIO 6.6 RATIO; CREATININE 2.53 mg/dl (0.61-1.24); MAGNESIUM 1.9 mg/dl (1.7-2.5); PHOSPHORUS 6.2 mg/dl (2.5-4.9); POTASSIUM 5.8 mmol/L (3.5-5.1); TOTAL PROTEIN 4.1 g/dl (6.1-8.1)
[2017-08-02 06:28] LABS: T3 UPTAKE 50.7 % (23.5-40.5)
[2017-08-02 06:41] LABS: THYROID STIMULATING HORMONE 2.23 MIU/L (0.465-4.680)
[2017-08-02] MEDS: SOD CHLORIDE 0.9% 1,000 ML IV SCH ×2 (09:40→23:01)
[2017-08-02] MEDS ORDERED: NA POLYST SULFON 15 GM/60 ML BTL PO ONE (10:00)
--- NOTE | 2017-08-02 10:06 | PN ---
Date/Time of Note Date/Time of Note DATE: 08/02/17 TIME: 10:02 Assessment/Plan VTE Prophylaxis VTE Prophylaxis Intervention: heparin Assessment/Plan Chief Complaint/Hosp Course 1. Near syncope. Most probably secondary to hypotension. Carotid Dopplers negative for any hemodynamically significant stenosis. Pending 2D echocardiogram. 2. Hypotension. Etiology unclear. The patient requiring pressors. On empiric antibiotics for any underlying sepsis with underlying septic shock. Cultures pending. Will obtain paracentesis with fluid study to rule out any underlying spontaneous bacterial peritonitis. 3. Hepatocellular lymphoma with malignant ascites. Undergoes chemotherapy at [facility]. Continue supportive care. 4. Recurrent ascites. Malignant. Will order paracentesis. 5. Acute kidney injury. Nonoliguric. Etiology could be hemodynamics versus others. Use nephrotoxic medications with caution. Pending nephrology evaluation. 6. Hyperkalemia. Most probably secondary to #4. Will treat the patient with potassium exchange resins. 7. Lactic acidosis. Etiology unclear. Probably secondary to acute kidney injury versus possible underlying sepsis. Continue IV hydration. 8. Hyponatremia. Probably secondary to acute kidney injury. Monitor. Nephrology to follow the patient. 9. Anemia. Normocytic and hypochromic. Most probably anemia of chronic disease. Monitor H&H closely. 10. Right lower extremity edema. Doppler study negative for any DVT. 10. Fluids, electrolytes, and nutrition. Renal diet. 11. DVT prophylaxis. Subcutaneous heparin. 12. Gastrointestinal prophylaxis. Proton pump inhibitors. 13. Plan. Continue pressors for blood pressure support. Obtain paracentesis with culture of paracentesis fluid. Give a single dose of Kayexalate. Case discussed with Dr. Li. Plan of care was explained to the patient's spouse was at the bedside and the patient's son over the phone. Critical care time: 45 minutes. Problems: Subjective 24 Hr Interval Summary Free Text/Dictation Complains of abdominal distention. Remains on pressors. Exam/Review of Systems Vital Signs Vitals Vital Signs Date Time Temp Pulse Resp B/P Pulse Ox O2 Delivery O2 Flow Rate FiO2 08/02/17 08:00 130 20 101/58 97 Nasal Cannula 2.0 08/02/17 06:20 97.9 Intake and Output 08/01/17 08/01/17 08/02/17 15:00 23:00 07:00 Intake Total 2460 ml Balance 2460 ml Exam General: Adequately build 61 year-old male lying in bed in no apparent distress. HEENT: Normocephalic, atraumatic. Eyes: Anicteric sclerae, conjunctivae clear. ENT: Nasal septum midline, oral mucosa moist. Neck supple, no JVD noticed. Respiratory: Bilaterally clear breath sounds. No use of accessory muscles of respiration. No adventitious breath sounds. Cardiovascular: S1, S2 heard. No murmurs or gallops. Tachycardia. Abdomen: Soft and nontender. Distended. Bowel sounds positive in all 4 quadrants. Genitourinary: Deferred. Extremities: No cyanosis, no clubbing. Right lower extremity edema. Peripheral pulses palpable. Neurologic: Cranial nerves II through XII grossly intact. The patient is awake, alert, and oriented. Skin: Normal skin turgor. No skin rashes. Results Result Diagram: 08/02/17 0522 08/02/17 0522 Results 24 hrs Laboratory Tests Test 08/01/17 11:00 08/01/17 13:30 08/01/17 14:00 08/01/17 14:21 White Blood Count 8.5 # Red Blood Count 4.46 L Hemoglobin 12.8 #L Hematocrit 38.4 L Mean Corpuscular Volume 86.1 Mean Corpuscular Hemoglobin 28.7 L Mean Corpuscular Hemoglobin Concent 33.3 Red Cell Distribution Width 23.4 H Platelet Count 130 #L Mean Platelet Volume 10.3 Neutrophils % 81.8 H Lymphocytes % 7.3 L Monocytes % 10.0 Eosinophils % 0.0 Basophils % 0.1 Nucleated Red Blood Cells % 0.2 H Neutrophils # (Manual) 6.9 Lymphocytes # 0.6 L Monocytes # 0.9 Eosinophils # 0.0 Basophils # 0.0 Nucleated Red Blood Cells # 0.0 Prothrombin Time 14.3 H Prothrombin Time Ratio 1.1 INR International Normalized Ratio 1.11 Activated Partial Thromboplast Time 25.8 D-Dimer 3911.64 H D-Dimer Comment Stool Occult Blood NEGATIVE Sodium Level 127 L 128 L Potassium Level 6.5 *H 5.3 H Chloride Level 98 105 Carbon Dioxide Level 18 L 18 L Anion Gap 18 H 10 # Blood Urea Nitrogen 45 H 44 H Creatinine 2.52 H 2.15 H Glucose Level 142 147 Lactic Acid Level 5.5 *H Calcium Level 9.6 8.4 Total Bilirubin 0.7 Direct Bilirubin 0.00 Indirect Bilirubin 0.7 Aspartate Amino Transf (AST/SGOT) 45 Alanine Aminotransferase (ALT/SGPT) 58 Alkaline Phosphatase 240 H Troponin I 0.021 Total Protein 4.7 L Albumin 2.6 L Globulin 2.10 Albumin/Globulin Ratio 1.23 Urine Color YELLOW Urine Clarity CLOUDY A Urine pH 5.0 Urine Specific Evans 1.016 Urine Ketones NEGATIVE Urine Nitrite NEGATIVE Urine Bilirubin NEGATIVE Urine Urobilinogen NEGATIVE Urine Leukocyte Esterase NEGATIVE Urine Microscopic RBC 1 Urine Microscopic WBC 5 Urine Squamous Epithelial Cells FEW Urine Bacteria FEW A Urine Hyaline Casts MODERATE Urine Mucus MODERATE Urine Hemoglobin NEGATIVE Urine Glucose 1+ H Urine Total Protein 1+ H Bedside Glucose 115 Test 08/01/17 15:20 08/01/17 17:30 08/01/17 23:41 08/02/17 05:22 Lactic Acid Level 3.2 *H 3.0 *H B-Type Natriuretic Peptide 1140 H Random Cortisol 41.9 White Blood Count 9.6 10.3 Red Blood Count 3.69 L 4.20 L Hemoglobin 11.0 L 12.1 L Hematocrit 32.3 L 36.7 L Mean Corpuscular Volume 87.5 87.4 Mean Corpuscular Hemoglobin 29.8 28.8 L Mean Corpuscular Hemoglobin Concent 34.1 33.0 Red Cell Distribution Width 23.0 H 23.2 H Platelet Count 140 143 Mean Platelet Volume 9.9 10.1 Neutrophils % 85.3 H 86.8 H Lymphocytes % 3.5 L 3.4 L Monocytes % 10.4 8.7 Eosinophils % 0.0 0.0 Basophils % 0.1 0.2 Nucleated Red Blood Cells % 0.0 0.0 Neutrophils # (Manual) 8.2 H 8.9 H Lymphocytes # 0.3 L 0.4 L Monocytes # 1.0 H 0.9 Eosinophils # 0.0 0.0 Basophils # 0.0 0.0 Nucleated Red Blood Cells # 0.0 0.0 Sodium Level 129 L 130 L Potassium Level 5.4 H 5.8 H Chloride Level 104 104 Carbon Dioxide Level 19 L 19 L Anion Gap 11 13 Blood Urea Nitrogen 45 H 46 H Creatinine 2.35 H 2.53 H Glucose Level 114 118 Uric Acid 8.3 H Calcium Level 8.7 9.1 Phosphorus Level 5.7 H 6.2 H Magnesium Level 1.8 1.9 Total Bilirubin 0.4 0.4 Direct Bilirubin 0.00 0.00 Indirect Bilirubin 0.4 0.4 Aspartate Amino Transf (AST/SGOT) 36 43 Alanine Aminotransferase (ALT/SGPT) 47 53 Alkaline Phosphatase 188 H 229 H Total Protein 3.7 #L 4.1 L Albumin 2.1 L 2.2 L Globulin 1.60 1.90 Albumin/Globulin Ratio 1.31 1.15 Hemoglobin A1c 6.0 H Triglycerides Level 187 H Cholesterol Level 133 LDL Cholesterol, Calculated 76 HDL Cholesterol 20 L Cholesterol/HDL Ratio 6.6 Thyroid Stimulating Hormone (TSH) 2.230 Free Thyroxine Index 3.85 Thyroxine (T4) 7.6 Triiodothyronine (T3) Uptake 50.7 H Medications Medications Current Medications Vancomycin HCl (Vancocin) 250 ml @ 125 mls/hr Q24H IVPB ; Start 08/02/17 at 17: 00 Ondansetron HCl (Zofran Inj) 4 mg Q6H PRN IV NAUSEA AND/OR VOMITING Last administered on 08/02/17t 04:05; Admin Dose 4 MG; Start 08/01/17 at 17:00 Acetaminophen (Tylenol Tab) 650 mg Q6H PRN PO PAIN LEVEL 1-3 OR FEVER; Start at 17:00 Acetaminophen (Tylenol Supp) 650 mg Q6H PRN [place] PAIN LEVEL 1-3 OR FEVER; Start 08/01/17 at 17:00 Acetaminophen/ Hydrocodone Bitart ([place] (5/325)) 1 tab Q6H PRN PO MODERATE PAIN LEVEL 4-6; Start 08/01/17 at 17:00 Acetaminophen/ Hydrocodone Bitart ([place] (5/325)) 2 tab Q6H PRN PO SEVERE PAIN LEVEL 7-10; Start 08/01/17 at 17:00 Morphine Sulfate (morphine) 2 mg Q4H PRN IV SEVERE PAIN LEVEL 7-10; Start at 17:00 Docusate Sodium (Colace) 100 mg Q12H PRN PO CONSTIPATION; Start 08/01/17 at 17: 00 Magnesium Hydroxide (Milk Of Mag) 30 ml DAILY PRN PO CONSTIPATION; Start at 17:00 Bisacodyl (Dulcolax Supp) 10 mg DAILY PRN [place] CONSTIPATION; Start 08/01/17 at 17: 00 Pantoprazole 40 mg 40 mg DAILY@06 IV Last administered on 08/02/17 05:32; Admin Dose 40 MG; Start 08/02/17 at 06:00 Piperacillin Sod/ Tazobactam Sod 50 ml @ 100 mls/hr Q6 IVPB Last administered on 08/02/17 07:09; Admin Dose 100 MLS/HR; Start 08/01/17 at 18:00 Sodium Chloride 1,000 ml @ 60 mls/hr [id number] IV Last administered on 08/01/17 17:00; Admin Dose 60 MLS/HR; Start 08/01/17 at 17:00 Norepinephrine 250 ml @ 1.875 mls/ hr TITRATE IV Last administered on 18:29; Admin Dose 13.125 MLS/HR; Start 08/01/17 at 17:00 Norepinephrine/ Dextrose (Levophed/D5W) 500 ml @ 1.87 mls/hr TITRATE IV ; Start 08/01/17 at 17:30 ARELI BRANNON NP Aug 02, 2017 10:06
--- NOTE | 2017-08-02 10:32 | RADRPT ---
PROCEDURE: Ultrasound of the bilateral lower extremity venous system. CLINICAL INDICATION: Bilateral lower extremity edema. TECHNIQUE: Mejia scale with and without compression, color doppler, spectral doppler of the venous system of the bilateral lower extremities was performed. Venous augmentation maneuvers were utilized . COMPARISON: 08/01/2017 FINDINGS: RIGHT: Common femoral vein:Patent and compressible. Femoral vein:Patent and compressible. Popliteal vein:Patent and compressible. Visualized calf veins:Patent and compressible. Soft tissues:Normal LEFT: Common femoral vein:Patent and compressible. Femoral vein:Patent and compressible. Popliteal vein:Patent and compressible. Visualized calf veins:Patent and compressible. Soft tissues:Normal IMPRESSION: 1. No evidence of deep vein thrombosis. RPTAT: [facility] Physician Jamie Date Time Electronically viewed and signed by Physician Jamie on 08/02/2017 10:26 /
--- NOTE | 2017-08-02 11:57 | CONS ---
DATE OF ADMISSION: 08/01/2017 DATE OF CONSULTATION: 08/02/2017 REASON FOR CONSULTATION: Acute kidney injury, hyperkalemia. REFERRING PHYSICIAN: Dr. Corona. HISTORY OF PRESENT ILLNESS: This is a 61-year-old male with a past medical history of hypertension, history of lymphoma diagnosed in 2005, who came to [facility] with reports of dizziness and abdominal distention. The patient was recently hospitalized on 07/25/2017, with history of malignant ascites. The patient at that time was recently discharged. Since discharge, he again noted abdominal enlargement as well as dizziness. The patient came to the hospital. Upon arrival, the patient noted to have sodium 127, potassium 6.5, BUN 45, creatinine 2.52. He was hypotensive and tachycardic. The patient was subsequently started on IV fluids and IV antibiotics for underlying sepsis. He was then transferred to the intensive care unit. In terms of patient's renal history, the patient had previously normal baseline renal function. During the last several days, in addition to abdominal distension, patient is also having nausea, vomiting, decreased oral intake. PAST MEDICAL HISTORY: As stated above. History of lymphoma, hypertension. PAST SURGICAL HISTORY: Previous biopsy. ALLERGIES: NO KNOWN DRUG ALLERGIES. SOCIAL HISTORY: Does not drink, smoke, or do drugs. MEDICATIONS: The patient's medications have been reviewed. REVIEW OF SYSTEMS: Fourteen-point review of systems conducted. Pertinent positives in HPI, otherwise negative. PHYSICAL EXAMINATION: VITAL SIGNS: Blood pressure 101/58, respirations 20, pulse 130, temperature 97.9. HEENT: Head is normocephalic. NECK: Supple. CARDIAC: Heart is tachycardic. LUNGS: Diminished breath sounds at the base. ABDOMEN: Soft. Positive ascites with positive fluid wave. EXTREMITIES: Negative for clubbing, cyanosis. Trace edema. DERMATOLOGIC: Clean. No rashes. MUSCULOSKELETAL: No joint effusion. NEUROLOGIC: No focal deficits. LABORATORY: Sodium 130, potassium 5.8, chloride 104, BUN 46, creatinine 2.53. White count 10.3, hemoglobin 10.1, hematocrit 36.7, platelet count is 143. The patient's urinalysis was reviewed. Chest x-ray shows no acute findings. Extremity ultrasound negative for deep venous thrombosis. Carotid shows no significant stenosis. IMPRESSION AND PLAN: This is a 61 of male presents with: 1. Nonoliguric acute kidney injury with previously baseline normal creatinine. Etiology of current acute kidney injury is likely multifactorial secondary to sepsis, questionable intra- abdominal hypertension, hemodynamics, questionable tubular injury. The patient's urinalysis shows evidence of pyuria, casts and +1 proteinuria. Otherwise benign sediment. Plan at this point is to repeat urinalysis with microanalysis. We will check urine electrolytes. Check a renal ultrasound. Agree with doing a paracentesis. Would continue IV fluids. Continue pressor support and maintain mean arterial pressure of 65. Monitor strict Is and Os. Continue broad-spectrum antibiotics. We will monitor closely. If the patient's renal function does not improve, and if the patient's hyperkalemia does not respond to medical management, would consider renal replacement therapy. 2. Hyperkalemia, likely secondary to Aldactone effect in conjunction with acute kidney injury. At this point, continue current medical management as stated above. The patient is status post Kayexalate. Monitor potassium levels closely. If they do not improve, will consider renal placement therapy for clearance. 3. Hyponatremia secondary to acute kidney injury. Decrease free water urinary excretion. Continue to monitor sodium levels. 4. Metabolic acidosis secondary to acute kidney injury. Elevated lactic acid. Continue to monitor. Consider ABG. No need for bicarbonate drip. 5. Anemia. Monitor H and H levels. 6. Mineral bone disorder. Monitor calcium and phosphorus levels. 7. Septic shock. Underlying source unclear. Continue broad- spectrum antibiotics. Monitor. 8. Hepatocellular carcinoma with malignant ascites. The patient is currently receiving chemotherapy at [facility]. Will continue. 9. Near syncope. Etiology possibly secondary to underlying shock. Continue to monitor closely. 10. Thank you so much for this interesting consult. It will be a pleasure to follow the patient with you throughout the hospital course. Dictated By: Ravin Chandler DO /kwesi/precious /Document#: [id number]
[2017-08-02 12:19] LABS: TROPONIN-I 0.034 ng/ml (0.00-0.12)
[2017-08-02 12:23] LABS: CK-MB 12.8 ng/ml (0.0-2.4)
[2017-08-02] MEDS ORDERED: LIDOCAINE 1% (MPF) 5 ML VIAL ONE (14:01)
--- NOTE | 2017-08-02 14:44 | RADRPT ---
PROCEDURE: Ultrasound guided paracentesis CLINICAL INDICATION: Ascites TECHNIQUE: The risks benefits and alternatives of the procedure were explained to the patient. In formed written consent was obtained. A time out was performed. The patient understood the risks be nefits and alternatives and wished to proceed with the procedure. The overlying skin of the right l ower quadrant of the abdomen was prepped and draped in the usual sterile fashion. Approximately 10 c c of Xylocaine was injected locally for pain control. Utilizing ultrasound guidance, a skinny 5-Sam formerly [facility] Yueh catheter was placed into the peritoneal cavity without difficulty. The patient tolerated the procedure well without complication. Approximately 5200 cc of thin karuna fluid was obtained. T he fluid was sent to the lab for further analysis. COMPARISON: 07/30/2017 FINDINGS: Initial ultrasound demonstrated a small amount of simple appearing ascites. Successful ultrasound-g uided paracentesis with a total of 5200 cc of thin yellow fluid aspirated. IMPRESSION: Successful ultrasound-guided paracentesis. RPTAT: QQ .Imer Washington MD, MD Date Time Electronically viewed and signed by .Imer Washington MD, on 08/02/2017 14:44 .A/
[2017-08-02] MEDS: HEPARIN 5,000 UNIT/0.5 ML VIAL SC SCH ×2 (14:52→21:38)
[2017-08-02] MEDS ORDERED: VANCOMYCIN 1.5 GM in SOD CHLORIDE 0.9% 250 ML IVPB SCH (15:00)
[2017-08-02 15:38] LABS: FLD RBC 11 /uL; FLD WBC 676 /cmm
[2017-08-02 15:46] LABS: FLUID LD 3105 U/L
--- NOTE | 2017-08-02 15:47 | RADRPT ---
PROCEDURE: Ultrasound Retroperitoneum. CLINICAL INDICATION: Renal insufficiency. TECHNIQUE: Mejia scale and color flow sonographic images of the kidneys and retroperitoneum were ob tained. The images were reviewed on a PACS workstation. COMPARISON: No prior studies are available for comparison. FINDINGS: The right kidney measures 8.1 cm. The left kidney measures 8.8 cm. The kidneys demonstrate normal ec hogenicity. A 1.8 cm simple cyst is identified in the inferior pole of the right kidney. No masses, stones or hydronephrosis are identified. Questionable decreased vascularity is identified in the le ft kidney. The bladder contains a Merino catheter and is collapsed. A moderate amount of ascites is identified in the right abdomen. Incidental note is made of an enlar ged spleen measuring 13.1 cm in length. IMPRESSION: Small bilateral kidneys. 1.8 cm simple right renal cyst. Questionably decreased vascularity in the left kidney. If further characterization is needed a dedi cated renal arterial ultrasound is recommended. Moderate amount of ascites in the right abdomen. Splenomegaly. Etiology is uncertain. RPTAT: AA .Matthias Clark MD, MD Date Time Electronically viewed and signed by .Matthias Clark MD, MD on 08/02/2017 15:46 .P/
[2017-08-02 15:48] LABS: FLUID TOTAL PROTEIN < 2.0 g/dl; FLUID TYPE PARACENTESIS FLUID
[2017-08-02 16:05] LABS: FLD CLARITY CLOUDY; FLD TYPE PARACENTHESIS
[2017-08-02 16:06] LABS: FLD COLOR DARK YELLOW
[2017-08-02] MEDS ORDERED: SOD CHLORIDE 0.9% 1,000 ML IV ONE (16:30)
[2017-08-02] MEDS ORDERED: VANCOMYCIN 1 GM in NS 250 ML IVPB SCH (17:00)
[2017-08-02] MEDS ORDERED: VANCOMYCIN 750 MG in SOD CHLORIDE 0.9% 150 ML IVPB SCH (17:00)
--- NOTE | 2017-08-02 18:09 | CONS ---
Date/Time of Note Date/Time of Note DATE: 08/02/17 TIME: 17:49 Assessment/Plan Assessment/Plan Chief Complaint/Hosp Course ID SHORT NOTE => Full note dictation pending Dr. Salas initial consultation CURRENT ABX: => Vanco IV + Zosyn 24H INTERVAL SUMMARY * A/A/O -> Algerian w/family present to interpret Kiswahili * s/p Para today, No fevers, on pressors, (+)[place]/Vomiting, (+)Dysuria with indwelling FC placed today "pain every time urinates" EXAM GEN: Resting comfortably in ICU, no fevers, on pressors, s/p para today HEENT: Unremarkable NECK: WNL CVS: RRR CHEST: Equal chest rise bilaterally without dyspnea on observation ABD: Distended EXT: Warm ID ASSESSMENT 61 yo M w/PMHx lymphoma admit with: 1. Hypotensive shock=> DDx sepsis vs intravascular volume depletion vs both * on admission as evidence by lactic acidosis, leukocytosis 10.8 w/increased Neuts% (baseline WBC 2.8) 2. DDx = Presumptive spontaneous bacterial peritonitis 3. Malignant ascites = recurrent issue * s/p Para 08/02/17 w/5200 cc of thin yellow fluid aspirated. * s/p Para 07/30/17 * s/p Para 08/25/17 4. Hepatocellular carcinoma, currently on chemotherapy managed out of [facility]. 5. Pancytopenia, likely secondary to chemotherapy = Now with elevated WBC from baseline 6. History of HTN, now with hypotension 7. KYLEIGH w/ Hyperkalemia ( ) MRSA Nares -> pending INVASIVES: Left Subclavian TLC, FC CURRENT ABX: =>Vanco IV + Zosyn ID RECOMMENDATIONS 1. Continue current ABX 2. Will give Pyridium for dysuria 3. Further recs pending ID team consultants and clinical course * Thank you - Dr. Salas notified for ID consult, covering Dr. Portillo . Problems: Consultation Date/Type/Reason Admit Date/Time Aug 01, 2017 at 20:56 Initial Consult Date Exam/Review of Systems Vital Signs Vitals Vital Signs Date Time Temp Pulse Resp B/P Pulse Ox O2 Delivery O2 Flow Rate FiO2 08/02/17 16:45 143 25 104/76 98 Nasal Cannula 2.0 08/02/17 16:00 97.8 Intake and Output 08/01/17 08/01/17 08/02/17 15:00 23:00 07:00 Intake Total 2460 ml Balance 2460 ml Results Result Diagram: 08/02/17 0522 08/02/17 0522 Results 24 hrs Laboratory Tests Test 08/01/17 23:41 08/02/17 05:22 08/02/17 11:27 08/02/17 13:30 White Blood Count 9.6 10.3 Red Blood Count 3.69 L 4.20 L Hemoglobin 11.0 L 12.1 L Hematocrit 32.3 L 36.7 L Mean Corpuscular Volume 87.5 87.4 Mean Corpuscular Hemoglobin 29.8 28.8 L Mean Corpuscular Hemoglobin Concent 34.1 33.0 Red Cell Distribution Width 23.0 H 23.2 H Platelet Count 140 143 Mean Platelet Volume 9.9 10.1 Neutrophils % 85.3 H 86.8 H Lymphocytes % 3.5 L 3.4 L Monocytes % 10.4 8.7 Eosinophils % 0.0 0.0 Basophils % 0.1 0.2 Nucleated Red Blood Cells % 0.0 0.0 Neutrophils # (Manual) 8.2 H 8.9 H Lymphocytes # 0.3 L 0.4 L Monocytes # 1.0 H 0.9 Eosinophils # 0.0 0.0 Basophils # 0.0 0.0 Nucleated Red Blood Cells # 0.0 0.0 Sodium Level 129 L 130 L Potassium Level 5.4 H 5.8 H Chloride Level 104 104 Carbon Dioxide Level 19 L 19 L Anion Gap 11 13 Blood Urea Nitrogen 45 H 46 H Creatinine 2.35 H 2.53 H Glucose Level 114 118 Uric Acid 8.3 H Calcium Level 8.7 9.1 Phosphorus Level 5.7 H 6.2 H Magnesium Level 1.8 1.9 Total Bilirubin 0.4 0.4 Direct Bilirubin 0.00 0.00 Indirect Bilirubin 0.4 0.4 Aspartate Amino Transf (AST/SGOT) 36 43 Alanine Aminotransferase (ALT/SGPT) 47 53 Alkaline Phosphatase 188 H 229 H Total Protein 3.7 #L 4.1 L Albumin 2.1 L 2.2 L Globulin 1.60 1.90 Albumin/Globulin Ratio 1.31 1.15 Hemoglobin A1c 6.0 H Triglycerides Level 187 H Cholesterol Level 133 LDL Cholesterol, Calculated 76 HDL Cholesterol 20 L Cholesterol/HDL Ratio 6.6 Thyroid Stimulating Hormone (TSH) 2.230 Free Thyroxine Index 3.85 Thyroxine (T4) 7.6 Triiodothyronine (T3) Uptake 50.7 H Creatine Kinase 57 Creatine Kinase Index 22.5 Creatinine Kinase MB (Mass) 12.80 H Troponin I 0.034 Pathologist Review (Hematology) Body Fluid Type PARACENTHESIS Body Fluid Volume 1000.0 Body Fluid Color DARK YELLOW Body Fluid Appearance CLOUDY Body Fluid WBC 676 Body Fluid RBC (Auto) 11 Body Fluid Polynuclear WBCs (%) 5.0 Body Fluid Mononuclear Cells % Auto 15.0 Body Fluid Total Protein < 2.0 Body Fluid Lactate Dehydrogenase 3105 Medications Medications Current Medications Ondansetron HCl (Zofran Inj) 4 mg Q6H PRN IV NAUSEA AND/OR VOMITING Last administered on 08/02/17 17:47; Admin Dose 4 MG; Start 08/01/17 at 17:00 Acetaminophen (Tylenol Tab) 650 mg Q6H PRN PO PAIN LEVEL 1-3 OR FEVER; Start at 17:00 Acetaminophen (Tylenol Supp) 650 mg Q6H PRN [place] PAIN LEVEL 1-3 OR FEVER; Start 08/01/17 at 17:00 Acetaminophen/ Hydrocodone Bitart ([place] (5/325)) 1 tab Q6H PRN PO MODERATE PAIN LEVEL 4-6; Start 08/01/17 at 17:00 Acetaminophen/ Hydrocodone Bitart ([place] (5/325)) 2 tab Q6H PRN PO SEVERE PAIN LEVEL 7-10; Start 08/01/17 at 17:00 Morphine Sulfate (morphine) 2 mg Q4H PRN IV SEVERE PAIN LEVEL 7-10; Start at 17:00 Docusate Sodium (Colace) 100 mg Q12H PRN PO CONSTIPATION; Start 08/01/17 at 17: 00 Magnesium Hydroxide (Milk Of Mag) 30 ml DAILY PRN PO CONSTIPATION; Start at 17:00 Bisacodyl (Dulcolax Supp) 10 mg DAILY PRN [place] CONSTIPATION; Start 08/01/17 at 17: 00 Pantoprazole 40 mg 40 mg DAILY@06 IV Last administered on 08/02/17 05:32; Admin Dose 40 MG; Start 08/02/17 at 06:00 Piperacillin Sod/ Tazobactam Sod 50 ml @ 100 mls/hr Q6 IVPB Last administered on 08/02/17 17:47; Admin Dose 100 MLS/HR; Start 08/01/17 at 18:00 Sodium Chloride 1,000 ml @ 75 mls/hr [id number] IV Last administered on 08/01/17 17:00; Admin Dose 60 MLS/HR; Start 08/01/17 at 17:00 Norepinephrine/ Dextrose (Levophed/D5W) 500 ml @ 1.87 mls/hr TITRATE IV Last administered on 08/02/17 16:39; Admin Dose 13.12 MLS/HR; Start 08/01/17 at 17:30 Heparin Sodium (Porcine) 5000 unit 5,000 unit Q8 SC Last administered on 14:52; Admin Dose 5,000 UNIT; Start 08/02/17 at 14:00 Vancomycin HCl 1.5 gm/Sodium Chloride 250 ml @ 83.333 mls/ hr ONCE@15 IVPB Last administered on 08/02/17 14:51; Admin Dose 83.333 MLS/HR; Start 08/02/17 at 15:00; Stop 08/02/17 at 19:00 Vancomycin HCl/ Sodium Chloride (Vancocin/NS) 150 ml @ 75 mls/hr Q24H IVPB ; Start 08/03/17 at 15:00 ELKIN SHAFFER NP Aug 02, 2017 18:00
[2017-08-02 18:26] LABS: CALCIUM 8.6 mg/dl (8.4-10.2); CREATININE 2.78 mg/dl (0.61-1.24); POTASSIUM 5.2 mmol/L (3.5-5.1)
[2017-08-02] MEDS: PHENAZOPYRIDINE 200 MG TAB PO SCH (21:31)
[2017-08-03] VITALS (95 sets, daily range): BP systolic 67–116; BP diastolic 46–92; PULSE 128–149; RESP 17–38
[2017-08-03 01:48] LABS: ADD UMIC YES; UR ASCORBIC ACID NEGATIVE (NEGATIVE); UR BACTERIA FEW /HPF (NONE SEEN); UR BILIRUBIN (Dip) NEGATIVE (NEGATIVE); UR BLOOD (Dip) 2+ mg/dL (NEGATIVE); UR CLARITY CLOUDY (CLEAR); UR COLOR AMBER (YELLOW); UR GLUCOSE (Dip) NEGATIVE (NEGATIVE); UR KETONES (Dip) NEGATIVE (NEGATIVE); UR LEUKOCYTE ESTERASE (Dip) TRACE Leu/ul (NEGATIVE); UR NITRITE (Dip) NEGATIVE (NEGATIVE); UR RBC 18 /HPF (0-5); UR SPECIFIC GRAVITY (Dip) 1.028 (1.003-1.030); UR SQUAMOUS EPITHELIAL CELL FEW /HPF (FEW); UR TOTAL PROTEIN (Dip) 1+ mg/dl (NEGATIVE); UR UROBILINOGEN (Dip) NEGATIVE (NEGATIVE)
--- NOTE | 2017-08-03 01:54 | CONS ---
DATE OF ADMISSION: 08/01/2017 DATE OF CONSULTATION: 08/02/2017 TYPE OF CONSULTATION: Infectious Disease REQUESTING PHYSICIAN: Ezequiel Rocha MD I am seeing this patient for Dr. Steven Portillo HISTORY OF PRESENT ILLNESS: The patient is a 61-year-old male who was admitted on 08/01/2017 with a chief complaint of hypotension and near syncope, and lactic acidosis. 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 He has cirrhosis and it is mentioned that he had hepatocellular carcinoma, although family does not seem to be aware of this, but he has ascites and no history of alcoholism or being overweight. He has pancytopenia and it was thought that he might have spontaneous peritonitis. His white count originally was 8500 when he came in and now has risen to 10,300 today. The patient was given IV fluids. He was treated with intravenous antibiotics consisting of vancomycin and Zosyn, and has remained afebrile. His B1 was 45 on admission and is now 49, CO2 was 19, and content was 19 and is now 18. His urinalysis on admission was yellow, cloudy with negative leukocyte esterase and nitrites; he had 5 white cells, 1 red cell, moderate hyaline casts, and plus-1 glucose. The patient has a serum albumin of 2.2. He had paracentesis of the distended abdomen with removal of 1000 mL of dark yellow fluid, which had 676 white cells, 5 percent of which were polys and 15 percent were monocytes. The patient was placed in the Intensive Care Unit and on a monitor. A Merino catheter was placed, which caused him to have dysuria, for which he was placed on Pyridium. PHYSICAL EXAMINATION: GENERAL: Reveals a well-developed male who was lying in bed, who has a somewhat prominent abdomen. The patient has oxygen cannula present. EYES: The pupils are equal, round, and react to light. NOSE, MOUTH, AND THROAT: Mouth has moist mucous membranes, but not shiny moist mucous membranes. NECK: No jugular venous distention. CHEST: Clear bilaterally. HEART: Rapid and regular. ABDOMEN: Protuberant. There is a fluid wave. There are no prominent veins around the umbilicus. EXTREMITIES: Examination revealed trace edema and very mild post- edema granulation changes of bilateral lower extremities, which do not appear to be chronic. INITIAL IMPRESSION: 1. Near syncope. 2. Dehydration. 3. Immune suppression. 4. Pancytopenia. 5. Chemotherapy. 6. Bone marrow transplant. 7. Recurrent lymphoma. 8. Cirrhosis with ascites. 9. Reportedly malignant effusion. RECOMMENDATIONS: Continue present antibiotic therapy. I would encourage fluid intake, as the patient still remains dehydrated. Dictated By: Mario Salas MD /kwesi/carol /Document#: [id number]
[2017-08-03] MEDS: PIPER-TAZO 2.25 GM (PMX) 50 ML IVPB SCH ×3 (05:33→20:57)
[2017-08-03] MEDS: PANTOPRAZOLE 40 MG INJ IV SCH (05:33)
[2017-08-03] MEDS: HEPARIN 5,000 UNIT/0.5 ML VIAL SC SCH ×3 (05:38→21:47)
[2017-08-03 05:40] LABS: ABNORMAL IP MESSAGE 1; BASOPHILS % 0.1 % (0.0-2.0); HEMATOCRIT 35.3 % (42.0-52.0); HEMOGLOBIN 11.5 g/dl (14.0-18.0); LYMPHOCYTES # 0.4 10^3/ul (0.8-2.9); LYMPHOCYTES % 3.4 % (15.0-51.0); MEAN CORPUSCULAR HEMOGLOBIN 28.4 pg (29.0-33.0); MEAN CORPUSCULAR HGB CONC 32.6 g/dl (32.0-37.0); MEAN CORPUSCULAR VOLUME 87.2 fl (82.0-101.0); MEAN PLATELET VOLUME 9.9 fl (7.4-10.4); MONOCYTES % 9.4 % (0.0-11.0); NEUTROPHILS % 86.3 % (39.0-77.0); NUCLEATED RED BLOOD CELLS% 0.3 /100WBC (0.0-0.0); PLATELET COUNT 141 10^3/UL (140-415); POSITIVE DIFF @See below; RED BLOOD COUNT 4.05 10^6/ul (4.70-6.10); RED CELL DISTRIBUTION WIDTH 24.3 % (11.5-14.5)
[2017-08-03 05:59] LABS: CALCIUM 9.1 mg/dl (8.4-10.2); POTASSIUM 4.9 mmol/L (3.5-5.1)
[2017-08-03 06:03] LABS: MAGNESIUM 1.9 mg/dl (1.7-2.5); PHOSPHORUS 6.6 mg/dl (2.5-4.9)
[2017-08-03 06:26] LABS: CREATININE 3.14 mg/dl (0.61-1.24)
--- NOTE | 2017-08-03 08:09 | PN ---
DATE: 08/03/2017 SUBJECTIVE DATA: The patient remains critically, on presser support. Urinary output has improved, although patient's Merino catheter was removed overnight. No other events noted. OBJECTIVE DATA: VITAL SIGNS: Blood pressure is 93/62, respirations 22, pulse 129, temperature 98.6. HEENT: Head is normocephalic. NECK: Supple. HEART: Regular rate. LUNGS: Show diminished breath sounds at the base. ABDOMEN: Soft, nontender to palpation. No rebound or guarding. EXTREMITIES: Negative for clubbing, cyanosis. No edema. DERMATOLOGIC: Clean. No rashes. MUSCULOSKELETAL: No joint effusion. NEUROLOGIC: No change in exam. MEDICATIONS: Reviewed. LABORATORY AND DIAGNOSTIC DATA: Shows sodium 132, potassium 4.9, chloride 107, BUN 54, creatinine 3.14. White count 11.0, hemoglobin 11.5, crit 35.3, platelet count is 141. Urinalysis repeat shows 18 RBCs, 12 WBCs, +1 protein. Renal ultrasound shows small bilateral kidneys, questionable vascularity of the left kidney, noted ascites. ASSESSMENT AND PLAN: Nonoliguric acute kidney injury with previously unknown baseline creatinine. Etiology of acute kidney injury is likely secondary to acute tubular necrosis secondary to sepsis, ischemic hypoperfusion, and hemodynamics. The possibility of a hepatorenal syndrome is a consideration. However, given the fact the patient presented in shock is a disqualifying event. At this point, would continue current treatment plan. Continue supportive care. Renally dose all meds. Continue pressor support intravenous fluids. Maintain mean arterial pressure of 65 and monitor renal function closely. Dictated By: Ravin Chandler DO /kwesi/rosy /Document#: [id number]
--- NOTE | 2017-08-03 08:52 | PN ---
Date/Time of Note Date/Time of Note DATE: 08/03/17 TIME: 08:47 Assessment/Plan VTE Prophylaxis VTE Prophylaxis Intervention: heparin Lines/Catheters IV Catheter Type (from [facility]): Central Line Central line still needed: Yes Urinary Cath still in place: Yes Reason Cath still needed: other (indicate) Assessment/Plan Chief Complaint/Hosp Course 1. Near syncope. Most probably secondary to hypotension. Carotid Doppler negative for any hemodynamically significant stenosis. Pending 2D echocardiogram. 2. Hypotension. Etiology unclear. The patient requiring pressors. On empiric antibiotics for any underlying sepsis with underlying septic shock. Cultures negative so far. 3. Hepatocellular lymphoma with malignant ascites. Undergoes chemotherapy at [facility]. Continue supportive care. 4. Recurrent ascites. Malignant. S/P paracentesis on 08/02/2017. 5. Acute kidney injury. Nonoliguric. Etiology could be hemodynamics versus others. Use nephrotoxic medications with caution. Nephrology following. 6. Sinus tachycardia. Etiology unclear. Probably from dehydration. Thyroid panel within normal limits. 7. Lactic acidosis. Etiology unclear. Probably secondary to acute kidney injury versus possible underlying sepsis. Continue IV hydration. 8. Hyponatremia. Probably secondary to acute kidney injury. Monitor. Nephrology following the patient. 9. Anemia. Normocytic and hypochromic. Most probably anemia of chronic disease. Monitor H&H closely. 10. Right lower extremity edema. Doppler study negative for any DVT. 10. Fluids, electrolytes, and nutrition. Renal diet. 11. DVT prophylaxis. Subcutaneous heparin. 12. Gastrointestinal prophylaxis. Proton pump inhibitors. 13. Plan. Continue pressors for blood pressure support. Wean off pressors as indicated. Continue empiric antibiotics. Case discussed with Dr. Li. Plan of care was explained to the patient's spouse was at the bedside. Critical care time: 35 minutes. Problems: Subjective 24 Hr Interval Summary Free Text/Dictation Denies any complaints. Remains on pressors. Exam/Review of Systems Vital Signs Vitals Vital Signs Date Time Temp Pulse Resp B/P Pulse Ox O2 Delivery O2 Flow Rate FiO2 08/03/17 08:15 132 25 105/74 93 Room Air 08/03/17 08:00 98.0 08/03/17 07:45 2.0 Intake and Output 08/02/17 08/02/17 08/03/17 15:00 23:00 07:00 Intake Total 709.972 ml 2236.845 ml 776.86 ml Output Total 25 ml 160 ml Balance 684.972 ml 2076.845 ml 776.86 ml Exam General: Adequately build 61 year-old male lying in bed in no apparent distress. HEENT: Normocephalic, atraumatic. Eyes: Anicteric sclerae, conjunctivae clear. ENT: Nasal septum midline, oral mucosa moist. Neck supple, no JVD noticed. Respiratory: Bilaterally clear breath sounds. No use of accessory muscles of respiration. No adventitious breath sounds. Cardiovascular: S1, S2 heard. No murmurs or gallops. Tachycardia. Abdomen: Soft and nontender. Distended. Bowel sounds positive in all 4 quadrants. Genitourinary: Deferred. Extremities: No cyanosis, no clubbing. Right lower extremity edema. Peripheral pulses palpable. Neurologic: Cranial nerves II through XII grossly intact. The patient is awake, alert, and oriented. Skin: Normal skin turgor. No skin rashes. Results Result Diagram: 08/03/17 0430 08/03/17 0430 Results 24 hrs Laboratory Tests Test 08/02/17 11:27 08/02/17 13:30 08/02/17 16:00 08/02/17 17:44 Creatine Kinase 57 Creatine Kinase Index 22.5 Creatinine Kinase MB (Mass) 12.80 H Troponin I 0.034 Pathologist Review (Hematology) Body Fluid Type PARACENTHESIS Body Fluid Volume 1000.0 Body Fluid Color DARK YELLOW Body Fluid Appearance CLOUDY Body Fluid WBC 676 Body Fluid RBC (Auto) 11 Body Fluid Polynuclear WBCs (%) 5.0 Body Fluid Mononuclear Cells % Auto 15.0 Body Fluid Total Protein < 2.0 Body Fluid Lactate Dehydrogenase 3105 Urine Color RAMOS Urine Clarity CLOUDY A Urine pH 5.0 Urine Specific [place] 1.028 Urine Ketones NEGATIVE Urine Nitrite NEGATIVE Urine Bilirubin NEGATIVE Urine Urobilinogen NEGATIVE Urine Leukocyte Esterase TRACE A Urine Microscopic RBC 18 H Urine Microscopic WBC 12 H Urine Squamous Epithelial Cells FEW Urine Bacteria FEW A Urine Hemoglobin 2+ H Urine Glucose NEGATIVE Urine Total Protein 1+ H Sodium Level 131 L Potassium Level 5.2 H Chloride Level 108 Carbon Dioxide Level 18 L Anion Gap 10 Blood Urea Nitrogen 49 H Creatinine 2.78 H Glucose Level 121 Calcium Level 8.6 Test 08/03/17 04:30 White Blood Count 11.0 H Red Blood Count 4.05 L Hemoglobin 11.5 L Hematocrit 35.3 L Mean Corpuscular Volume 87.2 Mean Corpuscular Hemoglobin 28.4 L Mean Corpuscular Hemoglobin Concent 32.6 Red Cell Distribution Width 24.3 H Platelet Count 141 Mean Platelet Volume 9.9 Neutrophils % 86.3 H Lymphocytes % 3.4 L Monocytes % 9.4 Eosinophils % 0.0 Basophils % 0.1 Nucleated Red Blood Cells % 0.3 H Neutrophils # (Manual) 9.5 H Lymphocytes # 0.4 L Monocytes # 1.0 H Eosinophils # 0.0 Basophils # 0.0 Nucleated Red Blood Cells # 0.0 Sodium Level 132 L Potassium Level 4.9 Chloride Level 107 Carbon Dioxide Level 18 L Anion Gap 12 Blood Urea Nitrogen 54 H Creatinine 3.14 H Glucose Level 122 Lactic Acid Level 2.4 *H Calcium Level 9.1 Phosphorus Level 6.6 H Magnesium Level 1.9 Thyroid Stimulating Hormone (TSH) 1.870 Free Thyroxine 1.45 Medications Medications Current Medications Ondansetron HCl (Zofran Inj) 4 mg Q6H PRN IV NAUSEA AND/OR VOMITING Last administered on 08/02/17t 23:02; Admin Dose 4 MG; Start 08/01/17 at 17:00 Acetaminophen (Tylenol Tab) 650 mg Q6H PRN PO PAIN LEVEL 1-3 OR FEVER; Start at 17:00 Acetaminophen (Tylenol Supp) 650 mg Q6H PRN [place] PAIN LEVEL 1-3 OR FEVER; Start 08/01/17 at 17:00 Acetaminophen/ Hydrocodone Bitart ([place] (5/325)) 1 tab Q6H PRN PO MODERATE PAIN LEVEL 4-6; Start 08/01/17 at 17:00 Acetaminophen/ Hydrocodone Bitart ([place] (5/325)) 2 tab Q6H PRN PO SEVERE PAIN LEVEL 7-10; Start 08/01/17 at 17:00 Morphine Sulfate (morphine) 2 mg Q4H PRN IV SEVERE PAIN LEVEL 7-10; Start at 17:00 Docusate Sodium (Colace) 100 mg Q12H PRN PO CONSTIPATION; Start 08/01/17 at 17: 00 Magnesium Hydroxide (Milk Of Mag) 30 ml DAILY PRN PO CONSTIPATION; Start at 17:00 Bisacodyl (Dulcolax Supp) 10 mg DAILY PRN [place] CONSTIPATION; Start 08/01/17 at 17: 00 Pantoprazole 40 mg 40 mg DAILY@06 IV Last administered on 08/03/17 05:33; Admin Dose 40 MG; Start 08/02/17 at 06:00 Piperacillin Sod/ Tazobactam Sod 50 ml @ 100 mls/hr Q6 IVPB Last administered on 08/03/17 05:33; Admin Dose 100 MLS/HR; Start 08/01/17 at 18:00 Sodium Chloride (NS) 1,000 ml @ 75 mls/hr [id number] IV Last administered on 23:01; Admin Dose 75 MLS/HR; Start 08/01/17 at 17:00 Heparin Sodium (Porcine) 5000 unit 5,000 unit Q8 SC Last administered on 05:38; Admin Dose 5,000 UNIT; Start 08/02/17 at 14:00 Vancomycin HCl/ Sodium Chloride (Vancocin/NS) 150 ml @ 75 mls/hr Q24H IVPB ; Start 08/03/17 at 15:00 Phenazopyridine HCl 200 mg 200 mg TID PO Last administered on 08/02/17 21:31; Admin Dose 200 MG; Start 08/02/17 at 21:00 Norepinephrine/ Dextrose (Levophed/D5W) 500 ml @ 1.87 mls/hr TITRATE IV ; Start 08/03/17 at 08:30 ARELI BRANNON NP Aug 03, 2017 08:52
[2017-08-03] MEDS: ONDANSETRON 4 MG INJ IV PRN ×2 (09:10→20:57)
[2017-08-03] MEDS: PHENAZOPYRIDINE 200 MG TAB PO SCH ×3 (09:10→20:57)
[2017-08-03] MEDS: SOD CHLORIDE 0.9% 1,000 ML IV SCH (11:06)
--- NOTE | 2017-08-03 11:57 | RADRPT ---
PROCEDURE: XR Chest. CLINICAL INDICATION: Pneumonia TECHNIQUE: Single frontal view of the chest was obtained. COMPARISON: Chest x-ray from 08/01/2017 FINDINGS: There is a moderate right pleural effusion which has increased. There is a small layering left pleural effusion which has increased as well as a retrocardiac opacit y due to atelectasis, infiltrate, and / or effusion. Heart size is within normal limits. The aortic arch is calcified. IMPRESSION: Increased right greater than left pleural effusions and retrocardiac opacity. RPTAT: EE Physician Sly Date Time Electronically viewed and signed by Cecil Rodas Physician on 08/03/2017 11:52 RA/
--- NOTE | 2017-08-03 12:19 | PN ---
DATE: 08/03/2017 SUBJECTIVE DATA: No acute changes. The patient is alert, looks comfortable. He is on 4 mics of Levophed drip. He is in no distress. OBJECTIVE DATA: VITAL SIGNS: Temperature 98, pulse 136, respirations 22, blood pressure 90/71, and saturation 95 percent on 2 L nasal cannula. LABORATORY AND DIAGNOSTIC DATA: WBC 11, H and H 11.5 and 35.3, platelets 141, and neutrophils 86.3. BUN 54, creatinine 3.14. Lactic acid 2.4. MICROBIOLOGY: Blood and urine cultures remain negative. Ascitic fluid cultures pending but preliminary negative. INDWELLINGS: Left subclavian triple lumen catheter. ANTIMICROBIALS: Patient is on vancomycin and Zosyn. PHYSICAL EXAMINATION: GENERAL: This is a well-developed, elderly man who is alert, in no distress. HEENT: Head atraumatic, normocephalic. Sclerae anicteric. Buccal mucosa dry. NECK: Supple. CHEST: Chest rise symmetrical. Breath sounds diminished at the bases. HEART: S1, S2. ABDOMEN: Distended, positive ascites. EXTREMITIES: Without cyanosis. ASSESSMENT: 1. Shock, questionable septic shock. 2. Recurrent lymphoma with a history of bone marrow transplant and chemotherapy. 3. Cirrhosis with ascites status post paracentesis with ascitic fluid cultures being negative. 4. Acute nonoliguric kidney injury, Nephrology on case. 5. Sinus tachycardia. 6. Right lower extremity edema, no deep venous thrombosis (DVT) per ultrasound. PLAN: 1. The patient is clinically stable. 2. Followed by multiple consultants. 3. We are going to repeat chest x-ray in a.m. 4. Continue him on current antibiotics for now. Dictated By: Haris Avalos NP /[email or web address]/maikol /Document#: [id number]
[2017-08-03 14:42] LABS: PATH REVIEW DK
[2017-08-03] MEDS ORDERED: VANCOMYCIN 750 MG in SOD CHLORIDE 0.9% 150 ML IVPB SCH (15:00)
[2017-08-03] MEDS ORDERED: SOD CHLORIDE 0.9% 1,000 ML IV SCH (15:00)
--- NOTE | 2017-08-03 16:16 | CONS ---
Date/Time of Note Date/Time of Note DATE: 08/03/17 TIME: 16:07 Assessment/Plan Assessment/Plan Additional Assessment/Plan Sinus tachycardia Hypotension secondary to shock Acute kidney injury Preserved ejection fraction Ascites status post paracentesis -Patient currently on IV pressor with hypotension and tachycardia. Echocardiogram with preserved ejection fraction and IVC is not dilated and collapsing. Furthermore, patient status post over 5 L removed on paracentesis. Would give IV fluid bolus, start albumin given large volume paracentesis, IV pressor to maintain SBP greater than 90, would strongly consider Merino placement if patient is agreeable (it was removed yesterday as per patient's request). Antibiotics as per primary team, would hold any diuretics or antihypertensive medications at the current time. Consultation Date/Type/Reason Admit Date/Time Aug 01, 2017 at 20:56 Type of Consultation: cv Reason for Consultation Tachycardia Hx of Present Illness This is a 61-year-old male with history of malignancy, who was admitted with with increased abdominal ascites, hypertension and dizziness. Patient with worsening abdominal ascites and acute kidney injury. Patient underwent paracentesis with over 5 L removed yesterday. Patient has been tachycardic and hypotensive. He denies any chest pain at the current time or shortness of breath or dizziness. He is currently undergoing an echocardiogram. As per the at bedside, main issues have been dizziness and overall fatigue and not feeling well. 12 point review of systems was performed with all pertinent positives and negatives mentioned above and all else is negative Subjective hx not possible: pt critical status Psychological: nl mood/affect Past Medical History Malignancy Past Surgical History Paracentesis Family History Significant Family History: no pertinent family hx Social History Alcohol Use: none Smoking Status: Former smoker Drug Use: none Exam/Review of Systems Vital Signs Vitals Vital Signs Date Time Temp Pulse Resp B/P Pulse Ox O2 Delivery O2 Flow Rate FiO2 08/03/17 15:30 136 18 95 Nasal Cannula 2.0 08/03/17 12:00 97.3 Intake and Output 08/02/17 08/02/17 08/03/17 15:00 23:00 07:00 Intake Total 709.972 ml 2236.845 ml 872.86 ml Output Total 25 ml 160 ml Balance 684.972 ml 2076.845 ml 872.86 ml Exam Follows commands, appears uncomfortable Constitutional: alert Head: normocephalic Respiratory: other (Coarse breath sounds bilaterally, no wheezing, decreased at the bases) Cardiovascular: other (Tachycardic, S1-S2 heard), regular rate and rhythm Gastrointestinal: ascites, bowel sounds, distended, other (No guarding), soft Extremities: edema Results Result Diagram: 08/03/17 0430 08/03/17 0430 Results 24 hrs Laboratory Tests Test 08/02/17 17:44 08/03/17 04:30 Sodium Level 131 L 132 L Potassium Level 5.2 H 4.9 Chloride Level 108 107 Carbon Dioxide Level 18 L 18 L Anion Gap 10 12 Blood Urea Nitrogen 49 H 54 H Creatinine 2.78 H 3.14 H Glucose Level 121 122 Calcium Level 8.6 9.1 White Blood Count 11.0 H Red Blood Count 4.05 L Hemoglobin 11.5 L Hematocrit 35.3 L Mean Corpuscular Volume 87.2 Mean Corpuscular Hemoglobin 28.4 L Mean Corpuscular Hemoglobin Concent 32.6 Red Cell Distribution Width 24.3 H Platelet Count 141 Mean Platelet Volume 9.9 Neutrophils % 86.3 H Lymphocytes % 3.4 L Monocytes % 9.4 Eosinophils % 0.0 Basophils % 0.1 Nucleated Red Blood Cells % 0.3 H Neutrophils # (Manual) 9.5 H Lymphocytes # 0.4 L Monocytes # 1.0 H Eosinophils # 0.0 Basophils # 0.0 Nucleated Red Blood Cells # 0.0 Lactic Acid Level 2.4 *H Phosphorus Level 6.6 H Magnesium Level 1.9 Thyroid Stimulating Hormone (TSH) 1.870 Free Thyroxine 1.45 Medications Medications Current Medications Ondansetron HCl (Zofran Inj) 4 mg Q6H PRN IV NAUSEA AND/OR VOMITING Last administered on 08/03/17t 09:10; Admin Dose 4 MG; Start 08/01/17 at 17:00 Acetaminophen (Tylenol Tab) 650 mg Q6H PRN PO PAIN LEVEL 1-3 OR FEVER; Start at 17:00 Acetaminophen (Tylenol Supp) 650 mg Q6H PRN [place] PAIN LEVEL 1-3 OR FEVER; Start 08/01/17 at 17:00 Acetaminophen/ Hydrocodone Bitart ([place] (5/325)) 1 tab Q6H PRN PO MODERATE PAIN LEVEL 4-6; Start 08/01/17 at 17:00 Acetaminophen/ Hydrocodone Bitart ([place] (5/325)) 2 tab Q6H PRN PO SEVERE PAIN LEVEL 7-10; Start 08/01/17 at 17:00 Morphine Sulfate (morphine) 2 mg Q4H PRN IV SEVERE PAIN LEVEL 7-10; Start at 17:00 Docusate Sodium (Colace) 100 mg Q12H PRN PO CONSTIPATION; Start 08/01/17 at 17: 00 Magnesium Hydroxide (Milk Of Mag) 30 ml DAILY PRN PO CONSTIPATION; Start at 17:00 Bisacodyl (Dulcolax Supp) 10 mg DAILY PRN [place] CONSTIPATION; Start 08/01/17 at 17: 00 Pantoprazole 40 mg 40 mg DAILY@06 IV Last administered on 08/03/17 05:33; Admin Dose 40 MG; Start 08/02/17 at 06:00 Sodium Chloride (NS) 1,000 ml @ 75 mls/hr [id number] IV Last administered on 11:06; Admin Dose 75 MLS/HR; Start 08/01/17 at 17:00 Heparin Sodium (Porcine) 5000 unit 5,000 unit Q8 SC Last administered on 13:21; Admin Dose 5,000 UNIT; Start 08/02/17 at 14:00 Vancomycin HCl/ Sodium Chloride (Vancocin/NS) 150 ml @ 75 mls/hr Q24H IVPB ; Start 08/03/17 at 15:00; Status Future Hold Phenazopyridine HCl 200 mg 200 mg TID PO Last administered on 08/03/17 13:06; Admin Dose 200 MG; Start 08/02/17 at 21:00 Norepinephrine 16 mg/Dextrose 500 ml @ 1.87 mls/hr TITRATE IV ; Start 08/03/17 at 08:30 Piperacillin Sod/ Tazobactam Sod (Zosyn 2.25gm/ 50ml (Pmx)) 50 ml @ 100 mls/hr Q8 IVPB Last administered on 08/03/17 13:12; Admin Dose 100 MLS/HR; Start at 14:00 Miscellaneous Information 1 ONCE ONCE XX ; Start 08/04/17 at 05:00; Stop at 05:01 Sodium Chloride 1,000 ml @ 0 mls/hr Q0M IV Last administered on 08/03/17t 14:59 ; Admin Dose 0 MLS/HR; Start 08/03/17 at 15:00 Albumin Human (Albumin Human 25%) 50 ml @ 100 mls/hr Q8H IV ; Start 08/03/17 at 16:00; Stop 08/04/17 at 08:29 Procedures Procedures ECG this morning demonstrates sinus tachycardia at 1 39/min, QRS 68 ms, nonspecific ST segment abnormalities Mahesh Mustafa DO Aug 03, 2017 16:16
[2017-08-03] MEDS: ALBUMIN HUMAN 25% 50 ML IV SCH ×2 (16:51→23:26)
[2017-08-04] VITALS (88 sets, daily range): BP systolic 73–109; BP diastolic 48–93; PULSE 121–143; RESP 15–36
[2017-08-04] MEDS: SOD CHLORIDE 0.9% 1,000 ML IV SCH ×2 (01:15→14:32)
[2017-08-04 05:12] LABS: ABNORMAL IP MESSAGE 1; BASOPHILS % 0.1 % (0.0-2.0); HEMATOCRIT 31.9 % (42.0-52.0); HEMOGLOBIN 10.6 g/dl (14.0-18.0); LYMPHOCYTES # 0.2 10^3/ul (0.8-2.9); LYMPHOCYTES % 2.8 % (15.0-51.0); MEAN CORPUSCULAR HEMOGLOBIN 29.3 pg (29.0-33.0); MEAN CORPUSCULAR HGB CONC 33.2 g/dl (32.0-37.0); MEAN CORPUSCULAR VOLUME 88.1 fl (82.0-101.0); MEAN PLATELET VOLUME 9.6 fl (7.4-10.4); MONOCYTE # 0.7 10^3/ul (0.3-0.9); MONOCYTES % 8.5 % (0.0-11.0); NEUTROPHILS % 87.4 % (39.0-77.0); NUCLEATED RED BLOOD CELLS # 0.1 10^3/ul (0.0-0.0); NUCLEATED RED BLOOD CELLS% 0.6 /100WBC (0.0-0.0); PLATELET COUNT 122 10^3/UL (140-415); POSITIVE DIFF @See below; RED BLOOD COUNT 3.62 10^6/ul (4.70-6.10); RED CELL DISTRIBUTION WIDTH 24.2 % (11.5-14.5); WHITE BLOOD COUNT 8.7 10^3/ul (4.8-10.8)
[2017-08-04] MEDS: PIPER-TAZO 2.25 GM (PMX) 50 ML IVPB SCH (05:29)
[2017-08-04] MEDS: PANTOPRAZOLE (EC) 40 MG TAB PO SCH (05:29)
[2017-08-04] MEDS: HEPARIN 5,000 UNIT/0.5 ML VIAL SC SCH ×3 (05:33→21:55)
[2017-08-04 05:39] LABS: CALCIUM 9.2 mg/dl (8.4-10.2); POTASSIUM 4.5 mmol/L (3.5-5.1)
[2017-08-04 05:46] LABS: CREATININE 3.68 mg/dl (0.61-1.24)
[2017-08-04 06:24] LABS: PHOSPHORUS 6.4 mg/dl (2.5-4.9)
--- NOTE | 2017-08-04 08:03 | PN ---
DATE: 08/04/2017 SUBJECTIVE DATA: The patient remains critical, in shock, on presser support. The patient's urinary output has been minimal, approximately 350 cc. The patient has had multiple bowel movements. The patient is also complaining of increased abdominal distention. No other events noted. OBJECTIVE DATA: VITAL SIGNS: Blood pressure is 90/58, respirations 24, pulse 120, temperature 98.6. HEENT: Head is normocephalic. NECK: Supple. HEART: Regular rate. LUNGS: Show diminished breath sounds at the base. ABDOMEN: Soft, distended, positive fluid wave. EXTREMITIES: Negative for clubbing, cyanosis. No edema. DERMATOLOGIC: Clean. No rashes. MUSCULOSKELETAL: No joint effusion. NEUROLOGIC: No change in exam. MEDICATIONS: Reviewed. LABORATORY AND DIAGNOSTIC DATA: Shows sodium 132, potassium 4.5, chloride 108, BUN 55, creatinine 3.68. White count 8.7, hemoglobin 10.6, crit 31.9, platelet count 122. The patient's urinalysis was reviewed. Renal ultrasound was reviewed. Chest x- ray shows increased pleural effusion, left greater than right. ASSESSMENT AND PLAN: 1. Nonoliguric acute kidney injury with previously normal baseline creatinine. Etiology of acute kidney injury is multifactorial secondary to sepsis, hemodynamics, acute tubular necrosis. The patient's urinalysis was reviewed. Initial urinalysis showed no evidence of active sediment. The patient remains in injury phase of acute tubular necrosis. Urinary output has been minimal. At this point, we will continue to monitor closely. If there is no significant improvement in renal function, patient may need to be started on renal placement therapy. 2. Hyperkalemia, secondary to Aldactone effect and acute kidney injury, resolved. Continue to monitor. 3. Hyponatremia, secondary to acute kidney injury causing decreased free water urinary excretion. Continue current sodium levels. 4. Metabolic acidosis secondary to acute kidney injury. Continue to monitor. 5. Anemia. Monitor H and H levels. 6. Mineral bone disorder. Monitor calcium and phosphorus levels. 7. Septic shock. Etiology source unclear. The patient is on broad-spectrum antibiotics. We will continue. 8. Lymphoma. The patient is status post chemotherapy. Continue to monitor. 9. Status post near syncope. 10. Abdominal ascites. Would recommend a therapeutic paracentesis. Dictated By: Ravin Chandler DO /kwesi/rosy /Document#: [id number]
[2017-08-04] MEDS: ALBUMIN HUMAN 25% 50 ML IV SCH (08:40)
[2017-08-04] MEDS: PHENAZOPYRIDINE 200 MG TAB PO SCH ×3 (08:40→21:53)
--- NOTE | 2017-08-04 09:24 | PN ---
Date/Time of Note Date/Time of Note DATE: 08/04/17 TIME: 09:19 Assessment/Plan VTE Prophylaxis VTE Prophylaxis Intervention: heparin Lines/Catheters IV C[facility]ter Type (from [facility] Central Line Central line still needed: Yes Urinary Cath still in place: Yes Reason Cath still needed: other (indicate) Assessment/Plan Chief Complaint/Hosp Course 1. Near syncope. Most probably secondary to hypotension. Carotid Doppler negative for any hemodynamically significant stenosis. 2. Hypotension. The patient requiring pressors. Etiology could be multifactorial including hypovolemic along with sepsis. On antibiotics for underlying sepsis with underlying septic shock probably secondary to UTI ( colony count is only <10,000/ml). Fluid WBC from paracentesis fluid 676. 3. Hepatocellular lymphoma with malignant ascites. Undergoes chemotherapy at [facility]. Continue supportive care. 4. Recurrent ascites. Malignant. S/P paracentesis on 08/02/2017. 5. Acute kidney injury. Nonoliguric. Etiology could be hemodynamics versus others. Use nephrotoxic medications with caution. Nephrology following. 6. Sinus tachycardia. Etiology unclear. Probably from dehydration. Thyroid panel within normal limits. Cardiology following who agreed with hydrating the patient adequately. 7. Lactic acidosis. Etiology unclear. Probably secondary to acute kidney injury versus possible underlying sepsis. Continue IV hydration. 8. Hyponatremia. Probably secondary to acute kidney injury. Monitor. Nephrology following the patient. 9. Anemia. Normocytic and hypochromic. Most probably anemia of chronic disease. Monitor H&H closely. 10. Right lower extremity edema. Doppler study negative for any DVT. 10. Fluids, electrolytes, and nutrition. Renal diet. 11. DVT prophylaxis. Subcutaneous heparin. 12. Gastrointestinal prophylaxis. Proton pump inhibitors. 13. Plan. Continue pressors for blood pressure support. Wean off pressors as indicated. Continue empiric antibiotics. Case discussed with Dr. Li. Plan of care was explained to the patient's spouse was at the bedside. Critical care time: 35 minutes. Problems: Subjective 24 Hr Interval Summary Free Text/Dictation Complains of abdominal distention. Denies any pain. Remains on pressors. Exam/Review of Systems Vital Signs Vitals Vital Signs Date Time Temp Pulse Resp B/P Pulse Ox O2 Delivery O2 Flow Rate FiO2 08/04/17 09:00 129 22 95/63 97 Nasal Cannula 08/04/17 08:00 97.9 08/04/17 03:00 2.0 Intake and Output 08/03/17 08/03/17 08/04/17 14:59 22:59 06:59 Intake Total 1464.75 ml 1870.99 ml 774.96 ml Output Total 150 ml 100 ml 100 ml Balance 1314.75 ml 1770.99 ml 674.96 ml Exam General: Adequately build 61 year-old male lying in bed in no apparent distress. HEENT: Normocephalic, atraumatic. Eyes: Anicteric sclerae, conjunctivae clear. ENT: Nasal septum midline, oral mucosa moist. Neck supple, no JVD noticed. Respiratory: Bilaterally clear breath sounds. No use of accessory muscles of respiration. No adventitious breath sounds. Cardiovascular: S1, S2 heard. No murmurs or gallops. Tachycardia. Abdomen: Soft and nontender. Distended. Bowel sounds positive in all 4 quadrants. Genitourinary: Deferred. Extremities: No cyanosis, no clubbing. Right lower extremity edema. Peripheral pulses palpable. Neurologic: Cranial nerves II through XII grossly intact. The patient is awake, alert, and oriented. Skin: Normal skin turgor. No skin rashes. Results Result Diagram: 08/04/17 0430 08/04/17 0430 Results 24 hrs Laboratory Tests Test 08/04/17 04:30 White Blood Count 8.7 # Red Blood Count 3.62 L Hemoglobin 10.6 L Hematocrit 31.9 L Mean Corpuscular Volume 88.1 Mean Corpuscular Hemoglobin 29.3 Mean Corpuscular Hemoglobin Concent 33.2 Red Cell Distribution Width 24.2 H Platelet Count 122 L Mean Platelet Volume 9.6 Neutrophils % 87.4 H Lymphocytes % 2.8 L Monocytes % 8.5 Eosinophils % 0.0 Basophils % 0.1 Nucleated Red Blood Cells % 0.6 H Neutrophils # (Manual) 7.6 H Lymphocytes # 0.2 L Monocytes # 0.7 Eosinophils # 0.0 Basophils # 0.0 Nucleated Red Blood Cells # 0.1 H Sodium Level 132 L Potassium Level 4.5 Chloride Level 108 Carbon Dioxide Level 15 L Anion Gap 14 Blood Urea Nitrogen 55 H Creatinine 3.68 H Glucose Level 100 Lactic Acid Level 1.9 Calcium Level 9.2 Phosphorus Level 6.4 H Magnesium Level 2.0 Random Vancomycin Level 20.9 Medications Medications Current Medications Ondansetron HCl (Zofran Inj) 4 mg Q6H PRN IV NAUSEA AND/OR VOMITING Last administered on 08/03/17 20:57; Admin Dose 4 MG; Start 08/01/17 at 17:00 Acetaminophen (Tylenol Tab) 650 mg Q6H PRN PO PAIN LEVEL 1-3 OR FEVER; Start at 17:00 Acetaminophen (Tylenol Supp) 650 mg Q6H PRN [place] PAIN LEVEL 1-3 OR FEVER; Start 08/01/17 at 17:00 Acetaminophen/ Hydrocodone Bitart ([place] (5/325)) 1 tab Q6H PRN PO MODERATE PAIN LEVEL 4-6; Start 08/01/17 at 17:00 Acetaminophen/ Hydrocodone Bitart ([place] (5/325)) 2 tab Q6H PRN PO SEVERE PAIN LEVEL 7-10; Start 08/01/17 at 17:00 Morphine Sulfate (morphine) 2 mg Q4H PRN IV SEVERE PAIN LEVEL 7-10; Start at 17:00 Docusate Sodium (Colace) 100 mg Q12H PRN PO CONSTIPATION; Start 08/01/17 at 17: 00 Magnesium Hydroxide (Milk Of Mag) 30 ml DAILY PRN PO CONSTIPATION; Start at 17:00 Bisacodyl 10 mg 10 mg DAILY PRN [place] CONSTIPATION; Start 08/01/17 at 17:00 Sodium Chloride (NS) 1,000 ml @ 75 mls/hr [id number] IV Last administered on 01:15; Admin Dose 75 MLS/HR; Start 08/01/17 at 17:00 Heparin Sodium (Porcine) (Heparin (5000 Units/0.5 ml)) 5,000 unit Q8 SC Last administered on 08/04/17 05:33; Admin Dose 5,000 UNIT; Start 08/02/17 at 14:00 Phenazopyridine HCl 200 mg 200 mg TID PO Last administered on 08/04/17 08:40; Admin Dose 200 MG; Start 08/02/17 at 21:00 Norepinephrine 16 mg/Dextrose 500 ml @ 1.87 mls/hr TITRATE IV Last administered on 08/04/17 05:32; Admin Dose 9.37 MLS/HR; Start 08/03/17 at 08:30 Piperacillin Sod/ Tazobactam Sod 50 ml @ 100 mls/hr Q8 IVPB Last administered on 08/04/17 05:29; Admin Dose 100 MLS/HR; Start 08/03/17 at 14:00 Sodium Chloride (NS) 1,000 ml @ 0 mls/hr Q0M IV Last administered on 08/03/17 14:59; Admin Dose 0 MLS/HR; Start 08/03/17 at 15:00 Pantoprazole 40 mg 40 mg DAILY@06 PO Last administered on 08/04/17 05:29; Admin Dose 40 MG; Start 08/04/17 at 06:00 Vancomycin HCl/ Sodium Chloride (Vancocin/NS) 150 ml @ 75 mls/hr Q72H IVPB ; Start 08/05/17 at 16:00 ARELI BRANNON NP Aug 04, 2017 09:24
--- NOTE | 2017-08-04 12:33 | PN ---
DATE: 08/04/2017 SUBJECTIVE DATA: No acute changes overnight. The patient is lying comfortably in bed. OBJECTIVE DATA: He is afebrile. Still tachycardic. Temperature 97.9, pulse 126, respirations 20, blood pressure 86/64 on 2 mcg of Levophed, saturation 94 percent on 3 L. LABORATORY DATA: WBC 8.7, H and H 10.6 and 31.9, platelets 122, neutrophils 87.4. BUN 55, creatinine 3.68. MICROBIOLOGY: Urine culture on admission grew enterococcus species, and gram-negative rods. Blood cultures remain negative. Aspirated fluid cultures negative. DIAGNOSTICS: Chest x-ray from yesterday revealed increased right greater than left pleural effusion and retrocardiac opacity. ANTIMICROBIALS: Patient is on: 1. Vancomycin. 2. Zosyn. INDWELLINGS: Left subclavian triple-lumen catheter. PHYSICAL EXAMINATION: GENERAL: This is a well-developed, elderly man, who is sleeping. The patient is in no distress. HEENT: Head atraumatic, normocephalic. NECK: Supple. LUNGS: Chest rise symmetrical. Breath sounds diminished at bases with scattered crackles. HEART: S1, S2. Tachycardic, regular. ABDOMEN: Distended with evidence of ascites. Bowel sounds hypoactive. EXTREMITIES: With trace edema. ASSESSMENT: 1. Shock with tachycardia and ongoing hypotension. 2. Polymicrobial urinary tract infection on admission; however, less than 10,000 colonies of enterococcus species, and gram- negative rods. 3. Hepatocellular lymphoma with malignant ascites, status post recurrent paracenteses with cultures being negative. 4. Acute kidney injury, possibly hepatorenal syndrome. 5. Sinus tachycardia. 6. Right lower extremity edema, no evidence of deep venous thrombosis per ultrasound. 7. Bilateral pleural effusions, right greater than left. Rule out pneumonia. PLAN: The patient remains stable on low-dose Levophed drip. He is being followed by multiple consultants. We are going to change Zosyn to meropenem, given worsening renal function. Continue vancomycin for now. Await for paracentesis. Consider pulmonary evaluation. Dictated By: Haris Avalos NP /kwesi/rosy /Document#: [id number]
[2017-08-04] MEDS: ONDANSETRON 4 MG INJ IV PRN ×2 (12:48→19:50)
--- NOTE | 2017-08-04 13:45 | CONS ---
Date/Time of Note Date/Time of Note DATE: 08/04/17 TIME: 13:40 Assessment/Plan Assessment/Plan Additional Assessment/Plan Sinus tachycardia Hypotension secondary to shock Acute kidney injury Preserved ejection fraction Ascites status post paracentesis Malignancy -Patient with improvement in blood pressure with decrease IV pressor requirements. Initiated patient on albumin yesterday secondary to large volume paracentesis. Continue to titrate Levophed to maintain SBP greater than 90 and her map above 60. Patient with increased abdominal ascites and discomfort, if planned for paracentesis, would recommend preemptively giving albumin as well. Antibiotics as per infectious disease. No AV manan blocking agents or antihypertensive medications at the current time. Greater than 31 minutes of critical care time in managing this patient Consultation Date/Type/Reason Admit Date/Time Aug 01, 2017 at 20:56 Initial Consult Date Type of Consultation: cv 24 HR Interval Summary Free Text/Dictation Patient denies chest pain, shortness of breath or dizziness or palpitations. Major complaint is increased abdominal distention and abdominal pain. Exam/Review of Systems Vital Signs Vitals Vital Signs Date Time Temp Pulse Resp B/P Pulse Ox O2 Delivery O2 Flow Rate FiO2 08/04/17 13:15 138 28 98/78 97 Nasal Cannula 2.0 08/04/17 12:00 97.7 Intake and Output 08/03/17 08/03/17 08/04/17 15:00 23:00 07:00 Intake Total 1454.75 ml 1869.36 ml 774.96 ml Output Total 150 ml 100 ml 100 ml Balance 1304.75 ml 1769.36 ml 674.96 ml Exam Appears uncomfortable with moving, family bedside Constitutional: alert, oriented Head: normocephalic Respiratory: other (Coarse breath sounds bilaterally, decreased at the bases) Cardiovascular: other (s1 S2 heard), regular rate and rhythm (Tachycardic) Gastrointestinal: ascites, bowel sounds, distended, soft, tender Extremities: edema Results Result Diagram: 08/04/17 0430 08/04/17 0430 Results 24 hrs Laboratory Tests Test 08/04/17 04:30 White Blood Count 8.7 # Red Blood Count 3.62 L Hemoglobin 10.6 L Hematocrit 31.9 L Mean Corpuscular Volume 88.1 Mean Corpuscular Hemoglobin 29.3 Mean Corpuscular Hemoglobin Concent 33.2 Red Cell Distribution Width 24.2 H Platelet Count 122 L Mean Platelet Volume 9.6 Neutrophils % 87.4 H Lymphocytes % 2.8 L Monocytes % 8.5 Eosinophils % 0.0 Basophils % 0.1 Nucleated Red Blood Cells % 0.6 H Neutrophils # (Manual) 7.6 H Lymphocytes # 0.2 L Monocytes # 0.7 Eosinophils # 0.0 Basophils # 0.0 Nucleated Red Blood Cells # 0.1 H Sodium Level 132 L Potassium Level 4.5 Chloride Level 108 Carbon Dioxide Level 15 L Anion Gap 14 Blood Urea Nitrogen 55 H Creatinine 3.68 H Glucose Level 100 Lactic Acid Level 1.9 Calcium Level 9.2 Phosphorus Level 6.4 H Magnesium Level 2.0 Random Vancomycin Level 20.9 Medications Medications Current Medications Ondansetron HCl (Zofran Inj) 4 mg Q6H PRN IV NAUSEA AND/OR VOMITING Last administered on 08/04/17 12:48; Admin Dose 4 MG; Start 08/01/17 at 17:00 Acetaminophen (Tylenol Tab) 650 mg Q6H PRN PO PAIN LEVEL 1-3 OR FEVER; Start at 17:00 Acetaminophen (Tylenol Supp) 650 mg Q6H PRN [place] PAIN LEVEL 1-3 OR FEVER; Start 08/01/17 at 17:00 Acetaminophen/ Hydrocodone Bitart ([place] (5/325)) 1 tab Q6H PRN PO MODERATE PAIN LEVEL 4-6; Start 08/01/17 at 17:00 Acetaminophen/ Hydrocodone Bitart ([place] (5/325)) 2 tab Q6H PRN PO SEVERE PAIN LEVEL 7-10; Start 08/01/17 at 17:00 Morphine Sulfate (morphine) 2 mg Q4H PRN IV SEVERE PAIN LEVEL 7-10; Start at 17:00 Docusate Sodium (Colace) 100 mg Q12H PRN PO CONSTIPATION; Start 08/01/17 at 17: 00 Magnesium Hydroxide (Milk Of Mag) 30 ml DAILY PRN PO CONSTIPATION; Start at 17:00 Bisacodyl 10 mg 10 mg DAILY PRN [place] CONSTIPATION; Start 08/01/17 at 17:00 Sodium Chloride (NS) 1,000 ml @ 75 mls/hr [id number] IV Last administered on 01:15; Admin Dose 75 MLS/HR; Start 08/01/17 at 17:00 Heparin Sodium (Porcine) (Heparin (5000 Units/0.5 ml)) 5,000 unit Q8 SC Last administered on 08/04/17 05:33; Admin Dose 5,000 UNIT; Start 08/02/17 at 14:00 Phenazopyridine HCl 200 mg 200 mg TID PO Last administered on 08/04/17 12:48; Admin Dose 200 MG; Start 08/02/17 at 21:00 Norepinephrine 16 mg/Dextrose 500 ml @ 1.87 mls/hr TITRATE IV Last administered on 08/04/17 05:32; Admin Dose 9.37 MLS/HR; Start 08/03/17 at 08:30 Sodium Chloride (NS) 1,000 ml @ 0 mls/hr Q0M IV Last administered on 08/03/17 14:59; Admin Dose 0 MLS/HR; Start 08/03/17 at 15:00 Pantoprazole 40 mg 40 mg DAILY@06 PO Last administered on 08/04/17 05:29; Admin Dose 40 MG; Start 08/04/17 at 06:00 Vancomycin HCl 750 mg/Sodium Chloride 150 ml @ 75 mls/hr Q72H IVPB ; Start 08/05 at 16:00 Meropenem/Sodium Chloride (Merrem 500mg/50 ml(Pmx)) 50 ml @ 100 mls/hr Q12 IVPB ; Start 08/04/17 at 21:00 Mahesh Mustafa DO Aug 04, 2017 13:45
--- NOTE | 2017-08-04 19:16 | RADRPT ---
Vent Rate: 139 bpm RR Interval: 0 msec SC Interval: 56 msec QRS Duration: 68 msec QT Interval: 280 msec QTC Interval: 426 msec P-R-T [place]: 0 - 38 - 65 degrees Sinus tachycardia with short SC Nonspecific T wave abnormality Abnormal ECG Electronically Signed By: Arthur Lockett [id number]
[2017-08-04] MEDS: MEROPENEM 500MG/50 ML (PMX) 50 ML IVPB SCH (22:01)
[2017-08-05] VITALS (91 sets, daily range): BP systolic 67–108; BP diastolic 46–85; PULSE 121–158; RESP 18–38
[2017-08-05 05:45] LABS: ABNORMAL IP MESSAGE 1; HEMATOCRIT 33.9 % (42.0-52.0); HEMOGLOBIN 11.2 g/dl (14.0-18.0); LYMPHOCYTES # 0.2 10^3/ul (0.8-2.9); LYMPHOCYTES % 3.2 % (15.0-51.0); MEAN CORPUSCULAR HEMOGLOBIN 29.2 pg (29.0-33.0); MEAN CORPUSCULAR VOLUME 88.5 fl (82.0-101.0); MEAN PLATELET VOLUME 9.4 fl (7.4-10.4); MONOCYTE # 0.5 10^3/ul (0.3-0.9); MONOCYTES % 7.4 % (0.0-11.0); NEUTROPHILS % 88.4 % (39.0-77.0); NUCLEATED RED BLOOD CELLS # 0.1 10^3/ul (0.0-0.0); NUCLEATED RED BLOOD CELLS% 0.7 /100WBC (0.0-0.0); PLATELET COUNT 114 10^3/UL (140-415); POSITIVE DIFF @See below; RED BLOOD COUNT 3.83 10^6/ul (4.70-6.10); RED CELL DISTRIBUTION WIDTH 24.4 % (11.5-14.5); WHITE BLOOD COUNT 7.3 10^3/ul (4.8-10.8)
[2017-08-05 06:06] LABS: CALCIUM 9.9 mg/dl (8.4-10.2); POTASSIUM 4.4 mmol/L (3.5-5.1)
[2017-08-05 06:12] LABS: MAGNESIUM 2.1 mg/dl (1.7-2.5); PHOSPHORUS 5.4 mg/dl (2.5-4.9)
[2017-08-05 06:25] LABS: CREATININE 3.4 mg/dl (0.61-1.24)
[2017-08-05] MEDS: HEPARIN 5,000 UNIT/0.5 ML VIAL SC SCH ×3 (06:28→21:09)
[2017-08-05] MEDS: PANTOPRAZOLE (EC) 40 MG TAB PO SCH (06:29)
[2017-08-05] MEDS ORDERED: ALBUMIN HUMAN 5% 250 ML IV ONE (06:30)
[2017-08-05] MEDS ORDERED: DILTIAZEM 25 MG INJ IV ONE (06:30)
--- NOTE | 2017-08-05 07:10 | RADRPT ---
Echocardiogram Report Patient Name: NATHALIA KIM Gender: Male Date: 1955 Study Date: 03-Aug-2017 Speech Lang Path: [facility] Location: 114 Ref. Physician: MICHAEL THOMPSON Quality: Adequate Procedures: Transthoracic echocardiogram with complete 2D, M-Mode, and doppler examination. Indications: Sepsis. 2D/M Mode Doppler Measurement Value Normal Ranges Measurement Value Normal Ranges AV Peak Zak 0.8 m/sec AV Peak PG 3.0 mmHg LVOT Peak Zak 0.6 m/sec LVOT Peak PG 1.0 mmHg MV E Peak Zak 0.8 m/sec TR Peak Zak 2.5 m/sec TR Peak PG 26.0 mmHg RVSP 29.0 mmHg Findings Left Ventricle: Overall, normal left ventricular systolic function. Not all segments visualized. Normal left ventricular cavity size. Ejection fraction is visually estimated at 60 %. Abnormal Diastolic Function. Right Ventricle: Normal right ventricular size. Normal right ventricular systolic function. Left Atrium: The left atrium is normal in size. Right Atrium: The right atrium is normal in size. Mitral Valve: Mitral valve is not well visualized. Trace mitral regurgitation. Aortic Valve: No significant aortic stenosis or insufficiency. Aortic valve not well visualized. Tricuspid Valve: Tricuspid valve not well visualized. Pericardium: Normal pericardium with no significant pericardial effusion. Aorta: Normal aortic root. IVC: Normal size and normal respiratory collapse consistent with normal right atrial pressure. Conclusions 1.Technically difficult study. 2.Overall, normal left ventricular systolic function. Not all segments visualized. Normal left ventricular cavity size. Ejection fraction is visually estimated at 60 %. Abnormal Diastolic Function. 3.Normal right ventricular size. Normal right ventricular systolic function. 4.No significant valvular stenosis or regurgitation seen. 5.Normal pericardium with no significant pericardial effusion. Electronically Signed By: Mahesh Mustafa 03-Aug-2017 15:32:15 -0700 Patient Name: NATHALIA KIM Study Date: 03-Aug-2017 [id number]
--- NOTE | 2017-08-05 09:02 | PN ---
Date/Time of Note Date/Time of Note DATE: 08/05/17 TIME: 08:59 Assessment/Plan VTE Prophylaxis VTE Prophylaxis Intervention: heparin Lines/Catheters IV [facility]from [facility] Central Line Central line still needed: Yes Urinary Cath still in place: Yes Reason Cath still needed: other (indicate) Assessment/Plan Chief Complaint/Hosp Course 1. Near syncope. Most probably secondary to hypotension. Carotid Doppler negative for any hemodynamically significant stenosis. 2D echocardiogram showing preserved left ventricular ejection fraction. 2. Hypotension. The patient requiring pressors. Etiology could be multifactorial including hypovolemic along with sepsis. On antibiotics for underlying sepsis with underlying septic shock probably secondary to UTI ( colony count is only <10,000/ml). Fluid WBC from paracentesis fluid 676. 3. Hepatocellular lymphoma with malignant ascites. Undergoes chemotherapy at [facility]. Continue supportive care. 4. Recurrent ascites. Malignant. S/P paracentesis on 08/02/2017. Will repeat paracentesis today. 5. Acute kidney injury. Nonoliguric. Etiology could be hemodynamics versus others. Use nephrotoxic medications with caution. Nephrology following. 6. Sinus tachycardia. Etiology unclear. Probably from dehydration. Thyroid panel within normal limits. Cardiology following who agreed with hydrating the patient adequately. 7. Lactic acidosis. Resolved. Etiology unclear. Probably secondary to acute kidney injury versus possible underlying sepsis. Continue IV hydration. 8. Hyponatremia. Probably secondary to acute kidney injury. Monitor. Nephrology following the patient. 9. Anemia. Normocytic and hypochromic. Most probably anemia of chronic disease. Monitor H&H closely. 10. Right lower extremity edema. Doppler study negative for any DVT. 10. Fluids, electrolytes, and nutrition. Renal diet. 11. DVT prophylaxis. Subcutaneous heparin. 12. Gastrointestinal prophylaxis. Proton pump inhibitors. 13. Plan. Continue pressors for blood pressure support. Wean off pressors as indicated. Continue antibiotics as per ID. Repeat paracentesis today. Case discussed with Dr. Crabtree. Plan of care was explained to the patient's spouse was at the bedside. Critical care time: 35 minutes. Problems: Subjective 24 Hr Interval Summary Free Text/Dictation Complains of abdominal distention. Poor oral intake. Remains on pressors. Continues to be tachycardic. Exam/Review of Systems Vital Signs Vitals Vital Signs Date Time Temp Pulse Resp B/P Pulse Ox O2 Delivery O2 Flow Rate FiO2 9/7/17 07:00 121 22 83/55 95 08/05/17 06:45 Nasal Cannula 5.0 08/05/17 04:00 98.2 08/04/17 19:30 31 Intake and Output 08/04/17 08/04/17 08/05/17 15:00 23:00 07:00 Intake Total 1160.37 ml 624.33 ml 646.84 ml Output Total 225 ml 50 ml 100 ml Balance 935.37 ml 574.33 ml 546.84 ml Exam General: Adequately build 61 year-old male lying in bed in no apparent distress. HEENT: Normocephalic, atraumatic. Eyes: Anicteric sclerae, conjunctivae clear. ENT: Nasal septum midline, oral mucosa moist. Neck supple, no JVD noticed. Respiratory: Bilaterally clear breath sounds. Minimal use of accessory muscles of respiration. No adventitious breath sounds. Cardiovascular: S1, S2 heard. No murmurs or gallops. Tachycardia. Abdomen: Soft and nontender. Distended. Bowel sounds positive in all 4 quadrants. Genitourinary: Deferred. Extremities: No cyanosis, no clubbing. Right lower extremity edema. Peripheral pulses palpable. Neurologic: Cranial nerves II through XII grossly intact. The patient is awake, alert, and oriented. Skin: Normal skin turgor. No skin rashes. Results Result Diagram: 08/05/1743908/05/17439 Results 24 hrs Laboratory Tests Test 08/05/17 04:40 White Blood Count 7.3 Red Blood Count 3.83 L Hemoglobin 11.2 L Hematocrit 33.9 L Mean Corpuscular Volume 88.5 Mean Corpuscular Hemoglobin 29.2 Mean Corpuscular Hemoglobin Concent 33.0 Red Cell Distribution Width 24.4 H Platelet Count 114 L Mean Platelet Volume 9.4 Neutrophils % 88.4 H Lymphocytes % 3.2 L Monocytes % 7.4 Eosinophils % 0.0 Basophils % 0.0 Nucleated Red Blood Cells % 0.7 H Neutrophils # (Manual) 6.4 Lymphocytes # 0.2 L Monocytes # 0.5 Eosinophils # 0.0 Basophils # 0.0 Nucleated Red Blood Cells # 0.1 H Sodium Level 132 L Potassium Level 4.4 Chloride Level 110 Carbon Dioxide Level 16 L Anion Gap 10 Blood Urea Nitrogen 58 H Creatinine 3.40 H Glucose Level 90 Calcium Level 9.9 Phosphorus Level 5.4 H Magnesium Level 2.1 Medications Medications Current Medications Ondansetron HCl (Zofran Inj) 4 mg Q6H PRN IV NAUSEA AND/OR VOMITING Last administered on 08/04/17 19:50; Admin Dose 4 MG; Start 08/01/17 at 17:00 Acetaminophen (Tylenol Tab) 650 mg Q6H PRN PO PAIN LEVEL 1-3 OR FEVER; Start at 17:00 Acetaminophen (Tylenol Supp) 650 mg Q6H PRN [place] PAIN LEVEL 1-3 OR FEVER; Start 08/01/17 at 17:00 Acetaminophen/ Hydrocodone Bitart ([place] (5/325)) 1 tab Q6H PRN PO MODERATE PAIN LEVEL 4-6; Start 08/01/17 at 17:00 Acetaminophen/ Hydrocodone Bitart ([place] (5/325)) 2 tab Q6H PRN PO SEVERE PAIN LEVEL 7-10; Start 08/01/17 at 17:00 Morphine Sulfate (morphine) 2 mg Q4H PRN IV SEVERE PAIN LEVEL 7-10; Start at 17:00 Docusate Sodium (Colace) 100 mg Q12H PRN PO CONSTIPATION; Start 08/01/17 at 17: 00 Magnesium Hydroxide (Milk Of Mag) 30 ml DAILY PRN PO CONSTIPATION; Start at 17:00 Bisacodyl 10 mg 10 mg DAILY PRN [place] CONSTIPATION; Start 08/01/17 at 17:00 Sodium Chloride (NS) 1,000 ml @ 75 mls/hr [id number] IV Last administered on 14:32; Admin Dose 75 MLS/HR; Start 08/01/17 at 17:00 Heparin Sodium (Porcine) (Heparin (5000 Units/0.5 ml)) 5,000 unit Q8 SC Last administered on 08/05/17 06:28; Admin Dose 5,000 UNIT; Start 08/02/17 at 14:00 Phenazopyridine HCl 200 mg 200 mg TID PO Last administered on 08/04/17 21:53; Admin Dose 200 MG; Start 08/02/17 at 21:00 Norepinephrine 16 mg/Dextrose 500 ml @ 1.87 mls/hr TITRATE IV Last administered on 08/04/17 05:32; Admin Dose 9.37 MLS/HR; Start 08/03/17 at 08:30 Sodium Chloride (NS) 1,000 ml @ 0 mls/hr Q0M IV Last administered on 08/03/17 14:59; Admin Dose 0 MLS/HR; Start 08/03/17 at 15:00 Pantoprazole 40 mg 40 mg DAILY@06 PO Last administered on 08/05/17 06:29; Admin Dose 40 MG; Start 08/04/17 at 06:00 Vancomycin HCl 750 mg/Sodium Chloride 150 ml @ 75 mls/hr Q72H IVPB ; Start 08/05 at 16:00 Meropenem/Sodium Chloride (Merrem 500mg/50 ml(Pmx)) 50 ml @ 100 mls/hr Q12 IVPB Last administered on 08/04/17 22:01; Admin Dose 100 MLS/HR; Start 08/04/17 at 21:00 ARELI BRANNON NP Aug 05, 2017 09:02
--- NOTE | 2017-08-05 09:08 | PN ---
DATE: 08/05/2017 SUBJECTIVE DATA: The patient remains critically ill, on presser support. The patient is tachycardic overnight. Did receive another bolus of albumin. Urinary output remains minimal. No other events noted. The patient is complaining about increased abdominal distention. OBJECTIVE DATA: VITAL SIGNS: Blood pressure is 83/55, respirations 22, pulse 121, temperature 98.6. HEENT: Head is normocephalic. NECK: Supple. HEART: Regular rate. Tachycardic. LUNGS: Diminished breath sounds base. ABDOMEN: Soft, distended, positive fluid wave. EXTREMITIES: No clubbing, cyanosis. Trace edema. DERMATOLOGIC: No rashes. MUSCULOSKELETAL: No joint effusion. NEUROLOGIC: No change in exam. MEDICATIONS: Reviewed. LABORATORY AND DIAGNOSTIC DATA: Shows white count 7.3, hemoglobin 9.2, hematocrit 33.9, platelet count is 114. Sodium 132, potassium 4.4, chloride 110, BUN 58, creatinine 3.40 and phosphorus is 5.40. ASSESSMENT AND PLAN: 1. Nonoliguric acute kidney injury with previously normal baseline creatinine. Etiology of acute kidney injury is secondary to sepsis, hemodynamics, tubular injury with possible component of intra-abdominal hypertension from large volume ascites. The patient's urinalysis was reviewed. Renal function has stabilized in the last 24 hours. At this point, continue current treatment plan. Continue IV hydration. Pressor support. Would recommend a paracentesis. Monitor closely. 2. Hyperkalemia secondary to acute kidney injury, resolved. 3. Hyponatremia secondary to acute kidney injury causing decreased free water urinary excretion. Continue to monitor. Sodium levels have been stable. 4. Metabolic acidosis. Continue to monitor. 5. Anemia. Monitor H and H levels. 6. Mineral bone disorder. Monitor calcium and phosphorus levels. 7. Septic shock. Etiology source unclear. The patient remains on broad-spectrum antibiotics, continue. 8. Lymphoma. The patient is currently on chemotherapy. 9. Abdominal ascites. Recommend therapeutic tap. 10. Status post near-syncope. 11. Tachycardia. The etiology is likely multifactorial. Continue to monitor. Follow up with Cardiology. Dictated By: Ravin Chandler DO /kwesi/magdalena /Document#: [id number]
[2017-08-05] MEDS: MEROPENEM 500MG/50 ML (PMX) 50 ML IVPB SCH ×2 (09:51→21:07)
[2017-08-05 10:40] LABS: INR 1.3; PROTIME 16.3 Sec (12.2-14.2); PT RATIO 1.3
[2017-08-05 10:41] LABS: PARTIAL THROMBOPLASTIN TIME 37.3 Sec (25.0-35.0)
--- NOTE | 2017-08-05 12:00 | CONS ---
Date/Time of Note Date/Time of Note DATE: 08/05/17 TIME: 11:58 Assessment/Plan Assessment/Plan Additional Assessment/Plan Sinus tachycardia Hypotension secondary to shock Acute kidney injury Preserved ejection fraction Ascites status post paracentesis Lymphoma -Continue to titrate Levophed to maintain SBP greater than 90 and her map above 60. Patient with increased abdominal ascites and discomfort, if planned for paracentesis, would recommend preemptively giving albumin as well. Antibiotics as per infectious disease. No AV manan blocking agents or antihypertensive medications at the current time. Greater than 31 minutes of critical care time in managing this patient Consultation Date/Type/Reason Admit Date/Time Aug 01, 2017 at 20:56 Type of Consultation: cv 24 HR Interval Summary Free Text/Dictation Complains of occasional shortness of breath when moving, major complaint is increased abdominal distention and discomfort. Denies dizziness or chest pain Exam/Review of Systems Vital Signs Vitals Vital Signs Date Time Temp Pulse Resp B/P Pulse Ox O2 Delivery O2 Flow Rate FiO2 08/05/17 10:15 124 25 87/59 95 Nasal Cannula 5.0 08/05/17 08:00 97.7 08/04/17 19:30 31 Intake and Output 08/04/17 08/04/17 08/05/17 15:00 23:00 07:00 Intake Total 1160.37 ml 624.33 ml 652.46 ml Output Total 225 ml 50 ml 100 ml Balance 935.37 ml 574.33 ml 552.46 ml Exam Daughter at bedside Constitutional: alert, oriented Head: normocephalic Respiratory: other (Coarse breath sounds bilaterally, decreased at the bases) Cardiovascular: other (S1-S2 heard), regular rate and rhythm (Tachycardic) Gastrointestinal: ascites, bowel sounds, distended, other, soft, tender Extremities: edema Results Result Diagram: 08/05/17 0440 08/05/17 0440 Results 24 hrs Laboratory Tests Test 08/05/17 04:40 08/05/17 09:35 White Blood Count 7.3 Red Blood Count 3.83 L Hemoglobin 11.2 L Hematocrit 33.9 L Mean Corpuscular Volume 88.5 Mean Corpuscular Hemoglobin 29.2 Mean Corpuscular Hemoglobin Concent 33.0 Red Cell Distribution Width 24.4 H Platelet Count 114 L Mean Platelet Volume 9.4 Neutrophils % 88.4 H Lymphocytes % 3.2 L Monocytes % 7.4 Eosinophils % 0.0 Basophils % 0.0 Nucleated Red Blood Cells % 0.7 H Neutrophils # (Manual) 6.4 Lymphocytes # 0.2 L Monocytes # 0.5 Eosinophils # 0.0 Basophils # 0.0 Nucleated Red Blood Cells # 0.1 H Sodium Level 132 L Potassium Level 4.4 Chloride Level 110 Carbon Dioxide Level 16 L Anion Gap 10 Blood Urea Nitrogen 58 H Creatinine 3.40 H Glucose Level 90 Calcium Level 9.9 Phosphorus Level 5.4 H Magnesium Level 2.1 Prothrombin Time 16.3 H Prothrombin Time Ratio 1.3 INR International Normalized Ratio 1.30 Activated Partial Thromboplast Time 37.3 H Medications Medications Current Medications Ondansetron HCl (Zofran Inj) 4 mg Q6H PRN IV NAUSEA AND/OR VOMITING Last administered on 08/04/17 19:50; Admin Dose 4 MG; Start 08/01/17 at 17:00 Acetaminophen (Tylenol Tab) 650 mg Q6H PRN PO PAIN LEVEL 1-3 OR FEVER; Start at 17:00 Acetaminophen (Tylenol Supp) 650 mg Q6H PRN [place] PAIN LEVEL 1-3 OR FEVER; Start 08/01/17 at 17:00 Acetaminophen/ Hydrocodone Bitart ([place] (5/325)) 1 tab Q6H PRN PO MODERATE PAIN LEVEL 4-6; Start 08/01/17 at 17:00 Acetaminophen/ Hydrocodone Bitart ([place] (5/325)) 2 tab Q6H PRN PO SEVERE PAIN LEVEL 7-10; Start 08/01/17 at 17:00 Morphine Sulfate (morphine) 2 mg Q4H PRN IV SEVERE PAIN LEVEL 7-10; Start at 17:00 Docusate Sodium (Colace) 100 mg Q12H PRN PO CONSTIPATION; Start 08/01/17 at 17: 00 Magnesium Hydroxide (Milk Of Mag) 30 ml DAILY PRN PO CONSTIPATION; Start at 17:00 Bisacodyl 10 mg 10 mg DAILY PRN [place] CONSTIPATION; Start 08/01/17 at 17:00 Sodium Chloride (NS) 1,000 ml @ 75 mls/hr [id number] IV Last administered on 14:32; Admin Dose 75 MLS/HR; Start 08/01/17 at 17:00 Heparin Sodium (Porcine) 5000 unit 5,000 unit Q8 SC Last administered on 06:28; Admin Dose 5,000 UNIT; Start 08/02/17 at 14:00 Norepinephrine 16 mg/Dextrose 500 ml @ 1.87 mls/hr TITRATE IV Last administered on 08/04/17 05:32; Admin Dose 9.37 MLS/HR; Start 08/03/17 at 08:30 Sodium Chloride (NS) 1,000 ml @ 0 mls/hr Q0M IV Last administered on 08/03/17 14:59; Admin Dose 0 MLS/HR; Start 08/03/17 at 15:00 Pantoprazole 40 mg 40 mg DAILY@06 PO Last administered on 08/05/17 06:29; Admin Dose 40 MG; Start 08/04/17 at 06:00 Vancomycin HCl 750 mg/Sodium Chloride 150 ml @ 75 mls/hr Q72H IVPB ; Start 08/05 at 16:00 Meropenem/Sodium Chloride (Merrem 500mg/50 ml(Pmx)) 50 ml @ 100 mls/hr Q12 IVPB Last administered on 08/05/17 09:51; Admin Dose 100 MLS/HR; Start 08/04/17 at 21:00 Mahesh Mustafa DO Aug 05, 2017 12:00
[2017-08-05] MEDS ORDERED: VANCOMYCIN 750 MG in SOD CHLORIDE 0.9% 150 ML IVPB SCH (16:00)
[2017-08-05] MEDS: SOD CHLORIDE 0.9% 1,000 ML IV SCH ×2 (16:33→17:46)
--- NOTE | 2017-08-05 17:26 | PN ---
DATE: 08/05/2017 SUBJECTIVE DATA: No acute changes overnight. Patient is awake, tachycardic, family at bedside. No fevers. He is quite uncomfortable because of the ascites and able to lie down on his side. VITAL SIGNS: Temperature 97.7, pulse 124, respirations 25, blood pressure 87/59 on 3 mcg of Levophed. Saturation 95 on 5 liters. WBC 7.8, H and H 11.2 and 33.9, platelets 114, neutrophils 88.4, BUN 58, creatinine 3.40. MICROBIOLOGY: Cultures have been negative. Urine culture on August 01 grew Pseudomonas and Enterococcus species, both less 10,000 colonies. ANTIMICROBIALS: 1. Vancomycin. 2. Meropenem. PHYSICAL EXAMINATION: This is a well-developed, chronically ill- appearing, elderly man, who is awake, in no distress. HEENT: Head atraumatic, normocephalic. Sclerae anicteric. Buccal mucosa dry. NECK: Supple. CHEST: Rise symmetrical. Breath sounds diminished at bases. HEART: S1, S2. Tachycardic, regular. ABDOMEN: Distended, positive ascites. Bowel sounds hypoactive. EXTREMITIES: No cyanosis. ASSESSMENT: 1. Symptomatic hypotension, on pressors, questionable septic etiology, so far all cultures negative. 2. Hepatocellular lymphoma with malignant ascites, status post multiple paracentesis, ascitic fluid culture negative. 3. Acute kidney injury, possible hepatorenal syndrome. 4. Sinus tachycardia. 5. Bilateral pleural effusions, right greater than left, possibly secondary to ascites. PLAN: Patient remains clinically stable, still on low-dose of Levophed drip for blood pressure support. He is scheduled for paracentesis today. We will order procalcitonin level. Repeat chest x-ray in a.m. Dictated By: Haris Avalos NP /kwesi/guicho /Document#: [id number]
[2017-08-06] VITALS (92 sets, daily range): BP systolic 49–118; BP diastolic 14–86; PULSE 80–165; RESP 14–36
[2017-08-06] MEDS: HEPARIN 5,000 UNIT/0.5 ML VIAL SC SCH ×3 (06:09→21:23)
[2017-08-06] MEDS: PANTOPRAZOLE (EC) 40 MG TAB PO SCH (06:10)
[2017-08-06 06:37] LABS: ABNORMAL IP MESSAGE 1; BASOPHILS % 0.1 % (0.0-2.0); HEMATOCRIT 34.7 % (42.0-52.0); HEMOGLOBIN 11.5 g/dl (14.0-18.0); LYMPHOCYTES # 0.3 10^3/ul (0.8-2.9); LYMPHOCYTES % 3.7 % (15.0-51.0); MEAN CORPUSCULAR HEMOGLOBIN 29.9 pg (29.0-33.0); MEAN CORPUSCULAR HGB CONC 33.1 g/dl (32.0-37.0); MEAN CORPUSCULAR VOLUME 90.1 fl (82.0-101.0); MEAN PLATELET VOLUME 10.1 fl (7.4-10.4); MONOCYTE # 0.4 10^3/ul (0.3-0.9); MONOCYTES % 6.1 % (0.0-11.0); NEUTROPHILS % 88.1 % (39.0-77.0); NUCLEATED RED BLOOD CELLS # 0.1 10^3/ul (0.0-0.0); NUCLEATED RED BLOOD CELLS% 1.8 /100WBC (0.0-0.0); PLATELET COUNT 115 10^3/UL (140-415); POSITIVE DIFF @See below; RED BLOOD COUNT 3.85 10^6/ul (4.70-6.10); RED CELL DISTRIBUTION WIDTH 24.8 % (11.5-14.5); WHITE BLOOD COUNT 6.8 10^3/ul (4.8-10.8)
[2017-08-06 06:49] LABS: MAGNESIUM 2.2 mg/dl (1.7-2.5); PHOSPHORUS 5.8 mg/dl (2.5-4.9)
[2017-08-06] MEDS: SOD CHLORIDE 0.9% 1,000 ML IV SCH (07:26)
--- NOTE | 2017-08-06 08:23 | RADRPT ---
PROCEDURE: Chest Radiograph. CLINICAL INDICATION: Pneumonia TECHNIQUE: Single frontal chest radiograph. COMPARISON: Chest radiograph 08/03/2017 FINDINGS: The patient is moderately rotated which limits evaluation. Heart size is poorly evaluated. A left s ubclavian line remains in place. There is a large right pleural effusion significantly increased in size compared to 08/03/2017 with partial adjacent atelectasis or infiltrate.. There are diffuse i nterstitial opacities throughout the bilateral lung peterson likely reflective of pulmonary edema. Mul tifocal pneumonia could potentially have this appearance. There is likely a small left pleural effus ion. IMPRESSION: 1. Large right pleural effusion, significantly increased in size compared to 08/03/2017 with adjace nt atelectasis/infiltrate. 2. Diffuse interstitial opacities, also worsened compared to prior study likely reflective of inter stitial edema. RPTAT: AA .Rodriguez Thomas MD, MD Date Time Electronically viewed and signed by .Rodriguez Thomas MD, on 08/06/2017 08:23 .B/
[2017-08-06] MEDS: MEROPENEM 500MG/50 ML (PMX) 50 ML IVPB SCH ×2 (08:32→20:29)
--- NOTE | 2017-08-06 08:46 | PN ---
DATE: 08/06/2017 SUBJECTIVE DATA: The patient remains critically ill, on presser support. The patient is also tachycardic with systolic pressures in 140s. Yesterday, the patient had abdominal ultrasound with no evidence of significant ascites for a paracentesis. The patient, however, is visibly upset and uncomfortable. I spoke with the patient's family at bedside. They are requesting possible transfer to [facility]. OBJECTIVE DATA: VITAL SIGNS: Blood pressure 106/83, respirations 18, pulse 140, temperature 99.0. HEENT: Head is normocephalic. NECK: Supple. HEART: Regular rate. Patient is tachycardic. LUNGS: Showed diminished breath sounds at the base. ABDOMEN: Soft, distended. Mild tenderness to palpation. EXTREMITIES: Negative for clubbing, cyanosis. Positive edema. DERMATOLOGIC: Clean. No rashes. MUSCULOSKELETAL: No joint effusion. NEUROLOGIC: Unchanged exam. No obvious focal deficits. LABORATORY AND DIAGNOSTIC DATA: Shows a white count 6.8, hemoglobin 9.5, crit 34.7, platelet count 117. The patient's BMP is pending. ASSESSMENT AND PLAN: 1. Oliguric acute kidney injury with previously known baseline creatinine. Etiology secondary to sepsis, hemodynamics, acute tubular necrosis. The patient appears to be in an injury phase of acute tubular necrosis. I did speak with the patient's family at bedside, informing them that if renal function continues to decline, the patient may need to be initiated on renal placement therapy. Please note, there was no significant ascites on abdominal ultrasound. We will monitor closely. 2. Hyperkalemia secondary to acute kidney injury, improved. Continue to monitor. 3. Hyponatremia secondary to acute kidney injury. Continue to observe. 4. Metabolic acidosis. Continue to monitor. The patient is compensated. 5. Anemia. Monitor H and H levels. 6. Mineral bone disorder. Monitor calcium and phosphorus levels. 7. Septic shock. Underlying source unclear. The patient remains on broad-spectrum antibiotics and intravenous fluids. Continue to monitor. 8. Lymphoma. The patient is status post chemotherapy. Tachycardia. The etiology is multifactorial secondary pain, sepsis. Continue to monitor. Follow up 9. with Cardiology. Please note, I spent over 30 minutes of critical care time with this patient. Dictated By: Ravin Chandler DO /kwesi/rosy /Document#: [id number]
[2017-08-06] MEDS ORDERED: IPRATROPIUM (NEB) 0.5 MG/2.5 ML AMP HHN ONE (09:00)
--- NOTE | 2017-08-06 09:09 | RADRPT ---
PROCEDURE: Limited Right Upper Quadrant Ultrasound CLINICAL INDICATION: Ascites. COMPARISON: Ultrasound 08/02/2017 TECHNIQUE: Multiple transverse and longitudinal zhang-scale images of the abdomen were obtained, supp lemented with color, power, and spectral Doppler imaging when appropriate. FINDINGS: Small amount of ascites. Moderate right and small left pleural effusion. IMPRESSION: 1. Small amount of ascites. 2. Moderate and small left pleural effusion. RPTAT: [facility] Afsaneh Evans Physician Date Time Electronically viewed and signed by Afsaneh Evans Physician on 08/06/2017 09:08 LG/
--- NOTE | 2017-08-06 09:14 | PN ---
Date/Time of Note Date/Time of Note DATE: 08/06/17 TIME: 09:10 Assessment/Plan VTE Prophylaxis VTE Prophylaxis Intervention: heparin Lines/Catheters IV [facility]from [facility] Central Line Central line still needed: Yes Urinary Cath still in place: No Assessment/Plan Chief Complaint/Hosp Course 1. Near syncope. Most probably secondary to hypotension. Carotid Doppler negative for any hemodynamically significant stenosis. 2D echocardiogram showing preserved left ventricular ejection fraction. 2. Hypotension. The patient requiring pressors. Etiology could be multifactorial including hypovolemic along with sepsis. On antibiotics for underlying sepsis with underlying septic shock probably secondary to UTI ( colony count is only <10,000/ml). Fluid WBC from paracentesis fluid 676. 3. Acute respiratory failure, hypoxic. Most probably secondary to underlying pleural effusion that is worsening. Continue supplemental oxygen. Will provide inhaled anticholinergics. Will avoid inhaled beta agonists because of underlying tachycardia. Involve pulmonology on the case. 4. Large right-sided pleural effusion. New onset. Possibly malignant in origin. Will order a stat right-sided thoracentesis. Involve pulmonology on the case. 5. Hepatocellular lymphoma with malignant ascites. Undergoes chemotherapy at [facility]. Continue supportive care. 6. Recurrent ascites. Malignant. S/P paracentesis on 08/02/2017. Will repeat paracentesis today. 7. Acute kidney injury. Nonoliguric. Etiology could be hemodynamics versus others. Use nephrotoxic medications with caution. Nephrology following. 8. Sinus tachycardia. Etiology unclear. Probably from dehydration. Thyroid panel within normal limits. Cardiology following who agreed with hydrating the patient adequately. 9. Hyponatremia. Probably secondary to acute kidney injury. Monitor. Nephrology following the patient. 10. Anemia. Normocytic and hypochromic. Most probably anemia of chronic disease. Monitor H&H closely. 11. Fluids, electrolytes, and nutrition. Renal diet. 12. DVT prophylaxis. Subcutaneous heparin. 13. Gastrointestinal prophylaxis. Proton pump inhibitors. 14. Plan. Continue pressors for blood pressure support. Obtain stat right- sided thoracentesis. Will pulmonology on the case. Stat ABG. Poor prognosis. Case discussed with Dr. Crabtree. Case discussed with nephrology and pulmonology. Patient may need to be started on hemodialysis as per nephrology. Plan of care was explained to the patient's spouse was at the bedside. Critical care time: 45 minutes. Problems: Subjective 24 Hr Interval Summary Free Text/Dictation Paracentesis that was ordered yesterday was not done. The patient has been progressively becoming short of breath. Remains on pressors. Exam/Review of Systems Vital Signs Vitals Vital Signs Date Time Temp Pulse Resp B/P Pulse Ox O2 Delivery O2 Flow Rate FiO2 08/06/17 06:00 140 18 106/83 99 08/06/17 04:00 99.0 08/06/17 02:17 6.0 08/06/17 00:30 Nasal Cannula 08/04/17 19:30 31 Intake and Output 08/05/17 08/05/17 08/06/17 15:00 23:00 07:00 Intake Total 794.96 ml 735.61 ml 1000 ml Output Total 100 ml 250 ml 200 ml Balance 694.96 ml 485.61 ml 800 ml Exam General: Adequately build 61 year-old male lying in bed in moderate respiratory apparent distress. HEENT: Normocephalic, atraumatic. Eyes: Anicteric sclerae, conjunctivae clear. ENT: Nasal septum midline, oral mucosa moist. Neck supple. JVD noticed. Respiratory: Bilaterally clear breath sounds. Minimal use of accessory muscles of respiration. No adventitious breath sounds. Cardiovascular: S1, S2 heard. No murmurs or gallops. Tachycardia. Abdomen: Soft and nontender. Distended. Bowel sounds positive in all 4 quadrants. Genitourinary: Deferred. Extremities: No cyanosis, no clubbing. Right lower extremity edema. Peripheral pulses palpable. Neurologic: Cranial nerves II through XII grossly intact. The patient is awake, alert, and oriented. Skin: Normal skin turgor. No skin rashes. Results Result Diagram: 08/06/17 0600 08/05/17 0440 Results 24 hrs Laboratory Tests Test 08/05/17 09:35 08/06/17 06:00 Prothrombin Time 16.3 H Prothrombin Time Ratio 1.3 INR International Normalized Ratio 1.30 Activated Partial Thromboplast Time 37.3 H White Blood Count 6.8 Red Blood Count 3.85 L Hemoglobin 11.5 L Hematocrit 34.7 L Mean Corpuscular Volume 90.1 Mean Corpuscular Hemoglobin 29.9 Mean Corpuscular Hemoglobin Concent 33.1 Red Cell Distribution Width 24.8 H Platelet Count 115 L Mean Platelet Volume 10.1 Neutrophils % 88.1 H Lymphocytes % 3.7 L Monocytes % 6.1 Eosinophils % 0.0 Basophils % 0.1 Nucleated Red Blood Cells % 1.8 H Neutrophils # (Manual) 6.0 Lymphocytes # 0.3 L Monocytes # 0.4 Eosinophils # 0.0 Basophils # 0.0 Nucleated Red Blood Cells # 0.1 H Phosphorus Level 5.8 H Magnesium Level 2.2 Medications Medications Current Medications Ondansetron HCl (Zofran Inj) 4 mg Q6H PRN IV NAUSEA AND/OR VOMITING Last administered on 08/04/17 19:50; Admin Dose 4 MG; Start 08/01/17 at 17:00 Acetaminophen (Tylenol Tab) 650 mg Q6H PRN PO PAIN LEVEL 1-3 OR FEVER; Start at 17:00 Acetaminophen (Tylenol Supp) 650 mg Q6H PRN [place] PAIN LEVEL 1-3 OR FEVER; Start 08/01/17 at 17:00 Acetaminophen/ Hydrocodone Bitart ([place] (5/325)) 1 tab Q6H PRN PO MODERATE PAIN LEVEL 4-6 Last administered on 08/06/17 02:19; Admin Dose 1 TAB; Start 08/01 at 17:00 Acetaminophen/ Hydrocodone Bitart ([place] (5/325)) 2 tab Q6H PRN PO SEVERE PAIN LEVEL 7-10; Start 08/01/17 at 17:00 Morphine Sulfate (morphine) 2 mg Q4H PRN IV SEVERE PAIN LEVEL 7-10; Start at 17:00 Docusate Sodium (Colace) 100 mg Q12H PRN PO CONSTIPATION; Start 08/01/17 at 17: 00 Magnesium Hydroxide (Milk Of Mag) 30 ml DAILY PRN PO CONSTIPATION; Start at 17:00 Bisacodyl 10 mg 10 mg DAILY PRN [place] CONSTIPATION; Start 08/01/17 at 17:00 Sodium Chloride (NS) 1,000 ml @ 75 mls/hr [id number] IV Last administered on 07:26; Admin Dose 75 MLS/HR; Start 08/01/17 at 17:00 Heparin Sodium (Porcine) 5000 unit 5,000 unit Q8 SC Last administered on 06:09; Admin Dose 5,000 UNIT; Start 08/02/17 at 14:00 Norepinephrine 16 mg/Dextrose 500 ml @ 1.87 mls/hr TITRATE IV Last administered on 08/04/17 05:32; Admin Dose 9.37 MLS/HR; Start 08/03/17 at 08:30 Sodium Chloride (NS) 1,000 ml @ 0 mls/hr Q0M IV Last administered on 08/03/17 14:59; Admin Dose 0 MLS/HR; Start 08/03/17 at 15:00 Pantoprazole 40 mg 40 mg DAILY@06 PO Last administered on 08/06/17 06:10; Admin Dose 40 MG; Start 08/04/17 at 06:00 Vancomycin HCl 750 mg/Sodium Chloride 150 ml @ 75 mls/hr Q72H IVPB Last administered on 08/05/17 16:28; Admin Dose 75 MLS/HR; Start 08/05/17 at 16:00 Meropenem/Sodium Chloride (Merrem 500mg/50 ml(Pmx)) 50 ml @ 100 mls/hr Q12 IVPB Last administered on 08/06/17 08:32; Admin Dose 100 MLS/HR; Start 08/04/17 at 21:00 Procedures Procedures CXR IMPRESSION: 1. Large right pleural effusion, significantly increased in size compared to with adjacent atelectasis/infiltrate. 2. Diffuse interstitial opacities, also worsened compared to prior study likely reflective of interstitial edema. ARELI BRANNON OVERLOCK WAISTLINE JOINER Aug 06, 2017 09:14
[2017-08-06 10:02] LABS: CALCIUM 10.4 mg/dl (8.4-10.2); POTASSIUM 4.9 mmol/L (3.5-5.1)
[2017-08-06 10:11] LABS: CREATININE 3.79 mg/dl (0.61-1.24)
[2017-08-06] MEDS ORDERED: PHENYLephrine 20MG IN 250 ML 250 ML ONE (10:56)
--- NOTE | 2017-08-06 11:14 | CONS ---
Date/Time of Note Date/Time of Note DATE: 08/06/17 TIME: 11:10 Assessment/Plan Assessment/Plan Additional Assessment/Plan Sinus tachycardia Respiratory distress Hypotension secondary to shock Acute kidney injury Preserved ejection fraction Ascites status post paracentesis Lymphoma -Patient with worsening respiratory status and pulmonary at bedside and planned for intubation. Continue to titrate IV pressor to maintain SBP greater than 90 and or map above 60. Patient with increased abdominal ascites and discomfort, possible repeat paracentesis, would recommend preemptively giving albumin as well. Antibiotics as per infectious disease. No AV manan blocking agents or antihypertensive medications at the current time. Been seen by our renal colleagues and plan to initiate hemodialysis Greater than 35 minutes of critical care time in managing this patient Consultation Date/Type/Reason Admit Date/Time Aug 01, 2017 at 20:56 Type of Consultation: cv 24 HR Interval Summary Free Text/Dictation Patient with worsening shortness of breath today. As per family, went for apparent centesis but was told not enough fluid to drain. Denies chest pain or dizziness. Exam/Review of Systems Vital Signs Vitals Vital Signs Date Time Temp Pulse Resp B/P Pulse Ox O2 Delivery O2 Flow Rate FiO2 08/06/17 08:00 138 08/06/17 06:00 18 106/83 99 08/06/17 04:00 99.0 08/06/17 02:17 6.0 08/06/17 00:30 Nasal Cannula 08/04/17 19:30 31 Intake and Output 08/05/17 08/05/17 08/06/17 15:00 23:00 07:00 Intake Total 794.96 ml 735.61 ml 1000 ml Output Total 100 ml 250 ml 200 ml Balance 694.96 ml 485.61 ml 800 ml Exam In respiratory distress and dyspneic, following commands, lying on side, family at bedside Constitutional: alert Head: normocephalic Respiratory: other (Decreased breath sounds at the bases, more so on the right. No wheezing) Cardiovascular: other (s1 S2 heard), regular rate and rhythm (Tachycardic) Gastrointestinal: ascites, bowel sounds, distended, soft, tender (Discomfort with palpation) Extremities: edema Results Result Diagram: 08/06/17 0600 08/06/17 0600 Results 24 hrs Laboratory Tests Test 08/06/17 06:00 White Blood Count 6.8 Red Blood Count 3.85 L Hemoglobin 11.5 L Hematocrit 34.7 L Mean Corpuscular Volume 90.1 Mean Corpuscular Hemoglobin 29.9 Mean Corpuscular Hemoglobin Concent 33.1 Red Cell Distribution Width 24.8 H Platelet Count 115 L Mean Platelet Volume 10.1 Neutrophils % 88.1 H Lymphocytes % 3.7 L Monocytes % 6.1 Eosinophils % 0.0 Basophils % 0.1 Nucleated Red Blood Cells % 1.8 H Neutrophils # (Manual) 6.0 Lymphocytes # 0.3 L Monocytes # 0.4 Eosinophils # 0.0 Basophils # 0.0 Nucleated Red Blood Cells # 0.1 H Sodium Level 134 L Potassium Level 4.9 Chloride Level 111 H Carbon Dioxide Level 12 L Anion Gap 16 Blood Urea Nitrogen 62 H Creatinine 3.79 H Glucose Level 101 Calcium Level 10.4 H Phosphorus Level 5.8 H Magnesium Level 2.2 B-Type Natriuretic Peptide 6950 H Medications Medications Current Medications Ondansetron HCl (Zofran Inj) 4 mg Q6H PRN IV NAUSEA AND/OR VOMITING Last administered on 08/04/17 19:50; Admin Dose 4 MG; Start 08/01/17 at 17:00 Acetaminophen (Tylenol Tab) 650 mg Q6H PRN PO PAIN LEVEL 1-3 OR FEVER; Start at 17:00 Acetaminophen (Tylenol Supp) 650 mg Q6H PRN [place] PAIN LEVEL 1-3 OR FEVER; Start 08/01/17 at 17:00 Acetaminophen/ Hydrocodone Bitart ([place] (5/325)) 1 tab Q6H PRN PO MODERATE PAIN LEVEL 4-6 Last administered on 08/06/17 02:19; Admin Dose 1 TAB; Start 08/01 at 17:00 Acetaminophen/ Hydrocodone Bitart ([place] (5/325)) 2 tab Q6H PRN PO SEVERE PAIN LEVEL 7-10; Start 08/01/17 at 17:00 Morphine Sulfate (morphine) 2 mg Q4H PRN IV SEVERE PAIN LEVEL 7-10; Start at 17:00 Docusate Sodium (Colace) 100 mg Q12H PRN PO CONSTIPATION; Start 08/01/17 at 17: 00 Magnesium Hydroxide (Milk Of Mag) 30 ml DAILY PRN PO CONSTIPATION; Start at 17:00 Bisacodyl 10 mg 10 mg DAILY PRN [place] CONSTIPATION; Start 08/01/17 at 17:00 Sodium Chloride (NS) 1,000 ml @ 75 mls/hr [id number] IV Last administered on 07:26; Admin Dose 75 MLS/HR; Start 08/01/17 at 17:00 Heparin Sodium (Porcine) 5000 unit 5,000 unit Q8 SC Last administered on 06:09; Admin Dose 5,000 UNIT; Start 08/02/17 at 14:00 Norepinephrine 16 mg/Dextrose 500 ml @ 1.87 mls/hr TITRATE IV Last administered on 08/04/17 05:32; Admin Dose 9.37 MLS/HR; Start 08/03/17 at 08:30 Sodium Chloride (NS) 1,000 ml @ 0 mls/hr Q0M IV Last administered on 08/03/17 14:59; Admin Dose 0 MLS/HR; Start 08/03/17 at 15:00 Pantoprazole 40 mg 40 mg DAILY@06 PO Last administered on 08/06/17 06:10; Admin Dose 40 MG; Start 08/04/17 at 06:00 Vancomycin HCl 750 mg/Sodium Chloride 150 ml @ 75 mls/hr Q72H IVPB Last administered on 08/05/17 16:28; Admin Dose 75 MLS/HR; Start 08/05/17 at 16:00 Meropenem/Sodium Chloride 50 ml @ 100 mls/hr Q12 IVPB Last administered on 08/06 08:32; Admin Dose 100 MLS/HR; Start 08/04/17 at 21:00 Phenylephrine HCl 250 ml @ 75 mls/hr TITRATE IV ; Start 08/06/17 at 11:00 Midazolam HCl (Versed) 50 ml @ 1 mls/hr TITRATE IV ; Start 08/06/17 at 11:00 Mahesh Mustafa DO Aug 06, 2017 11:14
[2017-08-06] MEDS: PHENYLephrine 20MG IN 250 ML 250 ML IV SCH ×2 (11:30→13:30)
[2017-08-06] MEDS: MIDAZOLAM (DRIP) 50 mg/50 mL 50 ML IV SCH ×2 (11:32→21:22)
[2017-08-06] MEDS: morphine 2 MG INJ IV PRN (11:36)
[2017-08-06] MEDS ORDERED: HEPARIN 1000 UNITS/ML 10 ML INJ ONE (11:45)
--- NOTE | 2017-08-06 12:01 | CONS ---
DATE OF ADMISSION: 08/01/2017 DATE OF CONSULTATION: 08/06/2017 REASON FOR CONSULTATION: Hypoxemic respiratory failure. HISTORY OF PRESENT ILLNESS: This is a 61-year-old gentleman with a history of B-cell lymphoma, currently being treated at [facility]. Last chemo was apparently 2 weeks ago. Comes in with a near-syncopal episode, lactic acidosis. Found to have worsening respiratory distress today with increasing significant right pleural effusion and increasing abdominal ascites. In addition, patient noted to be hypertensive, now requiring intubation and mechanical ventilation and initiation of vasopressors support. PAST MEDICAL HISTORY: B-cell lymphoma. MEDICATION: Per chart. ALLERGIES: NONE. SOCIAL HISTORY: Nonsmoker. No alcohol. No history of drug use. FAMILY HISTORY: Noncontributory. REVIEW OF SYSTEMS: Twelve point review of systems is currently unable to perform. PHYSICAL EXAMINATION: GENERAL APPEARANCE: Older than age-appearing gentleman, in mild respiratory distress. VITAL SIGNS: Currently afebrile. Pulse is 140, blood pressure 80/62, O2 sat 96 percent on FiO2 of 5 L. NECK: Supple. No JVD, lymphadenopathy. CARDIAC: S1, S2. No added sounds or murmurs. CHEST: Diminished air entry in both lung peterson. ABDOMEN: Distended, tense, but no guarding or rebound. EXTREMITIES: No cyanosis, clubbing. 1+ pitting edema. NEUROLOGIC: Generalized weakness. LABORATORY: White count 6.8, hemoglobin 11.5, platelets of 115. BUN 62, creatinine 3.79 with a bicarb of 12. Arterial blood gases pending at time of this dictation. INR 1.3. IMPRESSION: 1. Septic shock, possibly secondary to spontaneous bacterial peritonitis. 2. History of underlying lymphoma. 3. Hypoxemic respiratory failure with progressive right pleural effusion. 4. Enterococcal urinary tract infection per chart. PLAN: 1. Patient will need continued broad-spectrum antibiotic coverage. 2. Intubation, mechanical ventilation. 3. Hemodialysis catheter. 4. Correction of metabolic acidosis. 5. DVT and GI prophylaxis. 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 Dictated By: Yeison Corona MD /kwesi/rosy /Document#: [id number]
[2017-08-06] MEDS ORDERED: ALBUMIN HUMAN 25% 100 ML ONE (12:10)
--- NOTE | 2017-08-06 12:29 | PRO ---
DATE OF PROCEDURE: 08/06/2017 INDICATION: Hypoxic respiratory failure. PROCEDURE PERFORMED: Intubation. DESCRIPTION OF PROCEDURE: The patient was placed in a supine position with the neck extended. Blood pressure, EKG, pulse oximetry were continuously monitored. The vocal cords were visualized using Jose laryngoscope blade size #4. A 7.5 endotracheal tube was passed through the vocal cords and secured at 25 cm to the lip. CO2 capnometer was immediately positive. Patient had equal breath sounds bilaterally. Post intubation chest x-ray is pending at time of this. Dictated By: Yeison Corona MD /kwesi/von /Document#: [id number]
[2017-08-06] MEDS: ALBUMIN HUMAN 25% 100 ML IV SCH ×2 (12:30→14:31)
--- NOTE | 2017-08-06 12:33 | RADRPT ---
PROCEDURE: XR Chest 1 View. CLINICAL INDICATION: Shortness of breath, status post intubation. TECHNIQUE: AP view of the chest was obtained. COMPARISON: August 06, 2017 6:31 a.m. FINDINGS: Heart borders are obscured by the opacities. Endotracheal tube has its tip approximately 3.3 cm abov e the laith. Left-sided central line has its tip in the expected location of the mid to distal supe rior vena cava. There has been interval complete opacification of the right hemithorax. Central pulm onary vascular congestion and interstitial prominence is seen in the left lung. Patchy perihilar inf iltrates throughout the left lung are stable and are likely combined with small pleural effusion. Th e osseous structures are unchanged. IMPRESSION: Endotracheal tube with its tip approximately 3.3 cm above the laith. Interval complete opacification of the right hemithorax , likely corresponding to complete atelectas is/consolidation of the right lung, combined with pleural effusion. Central pulmonary vascular congestion and interstitial prominence in the left lung. Stable patchy perihilar infiltrates in the left lung, likely combined with small pleural effusion. RPTAT: AA .Matthias Clark MD, Date Time Electronically viewed and signed by .Matthias Clark MD, on 08/06/2017 12:33 .P/
--- NOTE | 2017-08-06 12:35 | OPR ---
DATE OF OPERATION: 08/06/2017 PREOPERATIVE DIAGNOSIS: Renal failure. POSTOPERATIVE DIAGNOSIS: Renal failure. OPERATION PERFORMED: Right femoral hemodialysis catheter placement. SURGEON: Dr. Mcgarry. ANESTHESIA: Local. Risks, benefits, complications, alternative therapies explained to the patient's family. Consent obtained. OPERATIVE PROCEDURE: Patient was placed in supine position. Prepped and draped in usual sterile fashion. 1 percent lidocaine was used at the start of the operation for local anesthesia. Access was gained in the right common femoral vein. Guidewire was advanced through without any difficulty. Subcutaneous tissue was dilated. A 25 cm dialysis catheter advanced over guidewire, secured to skin using silk sutures. All ports of the catheter were aspirated and injected using heparinized saline solution. Patient tolerated procedure well. Dictated By: Elliot Mcgarry MD /kwesi/rosy /Document#: [id number]
[2017-08-06 12:43] LABS: AADO2 Arterial 569.4 mmHg (7.0-24.0); Allen Test ACCEPTAB; Arterial Base Excess -26.5 mmol/L (-3.0-3); Arterial COHb 0.3 % (0.0-3.0); Arterial Fraction of Oxyhgb 94.4 % (93.0-99.0); Arterial HCO3 5.6 mmol/L (22.0-26.0); Arterial MetHb 0.4 % (0.0-1.5); Arterial Total Hemglobin 13.5 g/dl (12.0-18.0); MODE VENT - AC
[2017-08-06] MEDS ORDERED: NA BICARBONATE 8.4% 50 ML SYG IV STA (12:54)
[2017-08-06] MEDS ORDERED: NA BICARBONATE 8.4% 50 ML SYG ONE (13:04)
[2017-08-06] MEDS: SODIUM BICARBONATE (IV ADD) 150 MEQ in DEXTROSE 5%-0.45% NACL 1,000 ML IV SCH ×2 (14:21→21:22)
[2017-08-06] MEDS: VASOPRESSIN 60 UNIT in DEXTROSE 5% 57 ML IV SCH (14:23)
[2017-08-06] MEDS ORDERED: EPINEPHrine 4 MG in DEXTROSE 5% 246 ML IV SCH (14:30)
[2017-08-06] MEDS ORDERED: AMIODARONE 900 MG in DEXTROSE 5% 482 ML IV SCH ×2 (14:30→15:00)
[2017-08-06] MEDS ORDERED: EPINEPHRINE 4 MG in NS 250 ML IV SCH (14:30)
[2017-08-06 14:56] LABS: AADO2 Arterial 609.5 mmHg (7.0-24.0); Allen Test ACCEPTAB; Arterial Base Excess -12.8 mmol/L (-3.0-3); Arterial COHb 0.2 % (0.0-3.0); Arterial Fraction of Oxyhgb 93.1 % (93.0-99.0); Arterial HCO3 12.2 mmol/L (22.0-26.0); Arterial MetHb 0.3 % (0.0-1.5); Arterial Total Hemglobin 10.6 g/dl (12.0-18.0); MODE VENT - AC
[2017-08-06] MEDS ORDERED: SOD CHLORIDE 0.9% 1,000 ML IV ONE (15:00)
[2017-08-06] MEDS: PHENYLephrine 80 MG in DEXTROSE 5% 242 ML IV SCH ×3 (15:14→23:29)
--- NOTE | 2017-08-06 15:28 | RADRPT ---
Vent Rate: 190 bpm RR Interval: 0 msec AK Interval: 0 msec QRS Duration: 68 msec QT Interval: 238 msec QTC Interval: 423 msec P-R-T [place]: 0 - 59 - -60 degrees Atrial fibrillation with rapid ventricular response Low voltage QRS ST amp; T wave abnormality, consider inferior ischemia or digitalis effect Abnormal ECG Electronically Signed By: Arthur Lockett [id number]
--- NOTE | 2017-08-06 15:54 | CONS ---
Date/Time of Note Date/Time of Note DATE: 08/06/17 TIME: 15:45 Assessment/Plan Assessment/Plan Additional Assessment/Plan Long conversation with patient's 2 children who gave me the above past medical history. Patient's is at the bedside, ties distraught I did not try to speak with her. Reviewed patient's recent deteriorating medical condition and the possibility as to why he may have had this cardiopulmonary arrest. I assured them what we know we will tell him. I do not address goals of care but did tell family members that his prognosis is extremely poor, I believe it is too early to traumatize the family with discussion of CODE STATUS. At this time there questioning his level of care on the medical surgical floor prior to transfer to the intensive care unit. I assured them that we will continue to deliver this level of care but that they should be realistic that his underlying medical problem is the ultimate cause of his deteriorating medical condition and probably his eventual demise. Consultation Date/Type/Reason Admit Date/Time Aug 01, 2017 at 20:56 Type of Consultation: Palliative care Hx of Present Illness This is a 61 year old male who is in [facility] post cardiac arrest in the intensive care unit. Patient has a conjugated past medical history admitted here with near syncopal episode workup was in progress. According to family members he has had a recent diagnosis of lymphoma at [facility] last chemotherapy was given 2 months ago and patient was referred to [facility] for targeted therapy. Lately patient has been having increasing ascites has had multiple taps which family members states that he has felt better. Most recent paracentesis was done 3 days prior to this admission. Patient is now intubated post cardiopulmonary arrest. Patient has an underlying new pleural effusion, tense ascites, fluid and electrolyte abnormalities, mental status changes. Family members states that he has been generally deteriorating prior to this recent catastrophic hospitalization. Psychological: nl mood/affect Social History Alcohol Use: none Smoking Status: Former smoker Drug Use: none Exam/Review of Systems Vital Signs Vitals Vital Signs Date Time Temp Pulse Resp B/P Pulse Ox O2 Delivery O2 Flow Rate FiO2 08/06/17 13:50 0 08/06/17 13:50 80 08/06/17 13:22 97 100 08/06/17 13:15 102/60 08/06/17 11:00 Mechanical Ventilator 08/06/17 10:30 5.0 08/06/17 04:00 99.0 Intake and Output 08/05/17 08/05/17 08/06/17 15:00 23:00 07:00 Intake Total 794.96 ml 735.61 ml 1000 ml Output Total 100 ml 250 ml 200 ml Balance 694.96 ml 485.61 ml 800 ml Exam Constitutional: other (Physical examination deferred at this time) Results Result Diagram: 08/06/17 0600 08/06/17 0600 Results 24 hrs Laboratory Tests Test 08/06/17 06:00 08/06/17 12:07 08/06/17 12:38 08/06/17 14:02 White Blood Count 6.8 Red Blood Count 3.85 L Hemoglobin 11.5 L Hematocrit 34.7 L Mean Corpuscular Volume 90.1 Mean Corpuscular Hemoglobin 29.9 Mean Corpuscular Hemoglobin Concent 33.1 Red Cell Distribution Width 24.8 H Platelet Count 115 L Mean Platelet Volume 10.1 Neutrophils % 88.1 H Lymphocytes % 3.7 L Monocytes % 6.1 Eosinophils % 0.0 Basophils % 0.1 Nucleated Red Blood Cells % 1.8 H Neutrophils # (Manual) 6.0 Lymphocytes # 0.3 L Monocytes # 0.4 Eosinophils # 0.0 Basophils # 0.0 Nucleated Red Blood Cells # 0.1 H Sodium Level 134 L Potassium Level 4.9 Chloride Level 111 H Carbon Dioxide Level 12 L Anion Gap 16 Blood Urea Nitrogen 62 H Creatinine 3.79 H Glucose Level 101 Calcium Level 10.4 H Phosphorus Level 5.8 H Magnesium Level 2.2 B-Type Natriuretic Peptide 6950 H Bedside Glucose 91 90 Blood Gas Specimen Source Blood arterial Arterial Blood Date Drawn 08/06/2017 12:15:10 PM Arterial Blood pH (Temp corrected) 6.903 *L Arterial Blood pCO2 (Temp correct) 29.0 L Arterial Blood pO2 (Temp corrected) 114.6 H Arterial Blood HCO3 5.6 *L Arterial Blood Base Excess -26.5 L Arterial Blood Oxygen Saturation 95.1 Liu Test ACCEPTAB Arterial Blood Gas Puncture Site Right Radial Arterial Blood Carboxyhemoglobin 0.3 Arterial Blood Methemoglobin 0.4 Blood Gas A-a O2 Differential 569.4 H Oxyhemoglobin Percent 94.4 Total Hemoglobin 13.5 Blood Gas Temperature 37.0 Blood Gas Respiration Rate 20.0 Blood Gas Actual Respiration Rate 26 Blood Gas Modality VENT - AC FiO2 100.0 Blood Gas Tidal Volume 500.0 Blood Gas Low PEEP Setting 5.0 Blood Gas Critical Value Read Back Tyron SIMS RN Blood Gas Notified Whom SARAH Blood Gas Notified Time 08/06/2017 12:43:21 PM Test 08/06/17 14:35 Blood Gas Specimen Source Blood arterial Arterial Blood Date Drawn 08/06/2017 2:47:28 PM Arterial Blood pH (Temp corrected) 7.292 *L Arterial Blood pCO2 (Temp correct) 25.8 L Arterial Blood pO2 (Temp corrected) 77.7 L Arterial Blood HCO3 12.2 L Arterial Blood Base Excess -12.8 L Arterial Blood Oxygen Saturation 93.6 L Liu Test ACCEPTAB Arterial Blood Gas Puncture Site Right Radial Arterial Blood Carboxyhemoglobin 0.2 Arterial Blood Methemoglobin 0.3 Blood Gas A-a O2 Differential 609.5 H Oxyhemoglobin Percent 93.1 Total Hemoglobin 10.6 L Blood Gas Temperature 37.0 Blood Gas Respiration Rate 28.0 Blood Gas Actual Respiration Rate 34 Blood Gas Modality VENT - AC FiO2 100.0 Blood Gas Tidal Volume 500.0 Blood Gas Low PEEP Setting 5.0 Blood Gas Critical Value Read Back DR. MAST Blood Gas Notified Whom Oh Blood Gas Notified Time 08/06/2017 2:56:17 PM Medications Medications Current Medications Ondansetron HCl (Zofran Inj) 4 mg Q6H PRN IV NAUSEA AND/OR VOMITING Last administered on 08/04/17 19:50; Admin Dose 4 MG; Start 08/01/17 at 17:00 Acetaminophen (Tylenol Tab) 650 mg Q6H PRN PO PAIN LEVEL 1-3 OR FEVER; Start at 17:00 Acetaminophen (Tylenol Supp) 650 mg Q6H PRN [place] PAIN LEVEL 1-3 OR FEVER; Start 08/01/17 at 17:00 Acetaminophen/ Hydrocodone Bitart ([place] (5/325)) 1 tab Q6H PRN PO MODERATE PAIN LEVEL 4-6 Last administered on 08/06/17 02:19; Admin Dose 1 TAB; Start 08/01 at 17:00 Acetaminophen/ Hydrocodone Bitart ([place] (5/325)) 2 tab Q6H PRN PO SEVERE PAIN LEVEL 7-10; Start 08/01/17 at 17:00 Morphine Sulfate (morphine) 2 mg Q4H PRN IV SEVERE PAIN LEVEL 7-10 Last administered on 08/06/17 11:36; Admin Dose 2 MG; Start 08/01/17 at 17:00 Docusate Sodium (Colace) 100 mg Q12H PRN PO CONSTIPATION; Start 08/01/17 at 17: 00 Magnesium Hydroxide (Milk Of Mag) 30 ml DAILY PRN PO CONSTIPATION; Start at 17:00 Bisacodyl (Dulcolax Supp) 10 mg DAILY PRN [place] CONSTIPATION; Start 08/01/17 at 17: 00 Heparin Sodium (Porcine) 5000 unit 5,000 unit Q8 SC Last administered on 06:09; Admin Dose 5,000 UNIT; Start 08/02/17 at 14:00 Norepinephrine 16 mg/Dextrose 500 ml @ 1.87 mls/hr TITRATE IV Last administered on 08/06/17 11:58; Admin Dose 56.25 MLS/HR; Start 08/03/17 at 08:30 Sodium Chloride (NS) 1,000 ml @ 0 mls/hr Q0M IV Last administered on 08/03/17 14:59; Admin Dose 0 MLS/HR; Start 08/03/17 at 15:00 Pantoprazole 40 mg 40 mg DAILY@06 PO Last administered on 08/06/17 06:10; Admin Dose 40 MG; Start 08/04/17 at 06:00 Vancomycin HCl 750 mg/Sodium Chloride 150 ml @ 75 mls/hr Q72H IVPB Last administered on 08/05/17 16:28; Admin Dose 75 MLS/HR; Start 08/05/17 at 16:00 Meropenem/Sodium Chloride 50 ml @ 100 mls/hr Q12 IVPB Last administered on 08/06 08:32; Admin Dose 100 MLS/HR; Start 08/04/17 at 21:00 Phenylephrine HCl 250 ml @ 75 mls/hr TITRATE IV Last administered on 08/06/17 11:30; Admin Dose 37.5 MLS/HR; Start 08/06/17 at 11:00; Stop 08/06/17 at 15:00 Midazolam HCl 50 ml @ 1 mls/hr TITRATE IV Last administered on 08/06/17 11:32; Admin Dose 3 MLS/HR; Start 08/06/17 at 11:00 Sodium Bicarbonate 150 meq/Dextrose/ Sodium Chloride 1,150 ml @ 150 mls/hr Q7H40M IV Last administered on 08/06/17 14:21; Admin Dose 150 MLS/HR; Start 08/06/17 at 14:30 Vasopressin 60 unit/Dextrose 60 ml @ 0 mls/hr Q12H IV Last administered on 14:23; Admin Dose 0.04 MLS/HR; Start 08/06/17 at 13:00 Phenylephrine HCl 80 mg/Dextrose 250 ml @ 18.75 mls/ hr TITRATE IV ; Start 08/06 at 14:30 Epinephrine 4 mg/ Sodium Chloride 250 ml @ 0 mls/hr TITRATE IV ; Start 08/06/17 at 14:30 Amiodarone HCl 900 mg/Dextrose 500 ml @ 0 mls/hr Q0M IV ; Start 08/06/17 at 14:30 ; Stop 08/07/17 at 14:29 Sodium Chloride (NS) 1,000 ml @ 1,000 mls/hr Q1H ONCE IV ; Start 08/06/17 at 15: 00; Stop 08/06/17 at 15:59; Status UNV WILD TODD Aug 06, 2017 15:54
[2017-08-06] MEDS ORDERED: AMIKACIN IV PER PHARMACY XX SCH (16:30)
--- NOTE | 2017-08-06 16:46 | RADRPT ---
PROCEDURE: XR Chest. CLINICAL INDICATION: CHF TECHNIQUE: Single AP portable chest. COMPARISON: 08/06/2017 chest x-ray FINDINGS: The cardiac silhouette is enlarged. There is marked improvement in left pleural effusion with modera te persistent pleural fluid. Mild vascular congestion. Stable support devices. No pneumothorax. IMPRESSION: 1. Marked interval decrease in left pleural effusion with persistent vascular congestion and cardiom egaly. 2. Support devices in stable position . RPTAT:AAJJ Tyron Barr Physician Date Time Electronically viewed and signed by Physician Toña on 08/06/2017 16:45 LUIS M/
--- NOTE | 2017-08-06 17:47 | PN ---
DATE: 08/06/2017 SUBJECTIVE DATA: No events overnight. The patient had been intubated this morning secondary to respiratory distress. He was started on pressors. OBJECTIVE DATA: Temperature today 99, pulse 140, respirations 18, blood pressure 91/60, saturation 98 on vent. LABORATORY AND DIAGNOSTIC DATA: WBC 6.8, H and H 11.5 and 34.7, platelets 115, neutrophils 88.1. BUN 62, creatinine 3.79. MICROBIOLOGY: Cultures since admission had been negative. DIAGNOSTICS: Chest x-ray this morning revealed large right pleural effusion, significantly increased in size compared to August 03, with adjacent atelectasis, questionable infiltrates. INDWELLING: Endotracheal tube, [place], right femoral Pool catheter, left subclavian triple lumen catheter. ANTIMICROBIALS: The patient remains on vancomycin and meropenem. PHYSICAL EXAMINATION: This is a chronically ill-appearing, elderly man who is intubated, sedated, and in no distress. HEENT: Head atraumatic, normocephalic. Sclerae anicteric. Buccal mucosa dry. NECK: Supple. Trachea midline. CHEST: Rise symmetrical. Breath sounds diminished at the bases. HEART: S1, S2. ABDOMEN: Distended, positive ascites. Bowel sounds absent. EXTREMITIES: Cyanotic, mottled. ASSESSMENT: 1. Sepsis with shock, multifactorial. 2. Acute respiratory failure. 3. Large pleural effusion, possible pneumonia. 4. Ascites, rule out spontaneous bacterial peritonitis. 5. History of enterococcal urinary tract infection and Pseudomonas aeruginosa urinary tract infection on admission. 6. Hepatocellular lymphoma. 7. Acute kidney injury status post Pool catheter placement and plan for hemodialysis. 8. Anemia with progressive thrombocytopenia. PLAN: The patient is doing poorly. Covered with broad-spectrum antibiotics. He is being seen by multiple consultants. We will repeat cultures and send sputum culture. Continue present care and vent support. Dictated By: Haris Avalos NP /kwesi/robin /Document#: [id number]
[2017-08-06] MEDS ORDERED: AMIKACIN 500 MG in SOD CHLORIDE 0.9% 100 ML IVPB SCH (18:30)
[2017-08-07] VITALS (100 sets, daily range): BP systolic 73–116; BP diastolic 50–97; PULSE 115–135; RESP 23–33
[2017-08-07] MEDS: ACETAMINOPHEN 650 MG SUPP PR PRN ×3 (01:00→13:46)
[2017-08-07] MEDS: VASOPRESSIN 60 UNIT in DEXTROSE 5% 57 ML IV SCH ×2 (01:02→13:00)
[2017-08-07] MEDS: SODIUM BICARBONATE (IV ADD) 150 MEQ in DEXTROSE 5%-0.45% NACL 1,000 ML IV SCH ×5 (04:12→21:10)
[2017-08-07] MEDS: PHENYLephrine 80 MG in DEXTROSE 5% 242 ML IV SCH ×5 (04:15→22:05)
[2017-08-07] MEDS: PANTOPRAZOLE (EC) 40 MG TAB PO SCH (05:01)
[2017-08-07] MEDS: HEPARIN 5,000 UNIT/0.5 ML VIAL SC SCH ×3 (05:25→21:48)
[2017-08-07 06:37] LABS: ABNORMAL IP MESSAGE 1; EOSINOPHILS % 0.1 % (0.0-7.0); HEMATOCRIT 30.9 % (42.0-52.0); HEMOGLOBIN 9.8 g/dl (14.0-18.0); LYMPHOCYTES # 0.3 10^3/ul (0.8-2.9); MEAN CORPUSCULAR HEMOGLOBIN 29.2 pg (29.0-33.0); MEAN CORPUSCULAR HGB CONC 31.7 g/dl (32.0-37.0); MEAN PLATELET VOLUME 10.1 fl (7.4-10.4); MONOCYTE # 0.4 10^3/ul (0.3-0.9); MONOCYTES % 5.3 % (0.0-11.0); NEUTROPHILS % 89.6 % (39.0-77.0); NUCLEATED RED BLOOD CELLS # 0.7 10^3/ul (0.0-0.0); NUCLEATED RED BLOOD CELLS% 8.7 /100WBC (0.0-0.0); PLATELET COUNT 65 10^3/UL (140-415); POSITIVE DIFF @See below; RED BLOOD COUNT 3.36 10^6/ul (4.70-6.10); RED CELL DISTRIBUTION WIDTH 25.1 % (11.5-14.5); WHITE BLOOD COUNT 8.4 10^3/ul (4.8-10.8)
[2017-08-07 07:07] LABS: CALCIUM 8.3 mg/dl (8.4-10.2); MAGNESIUM 2.1 mg/dl (1.7-2.5); PHOSPHORUS 5.7 mg/dl (2.5-4.9); POTASSIUM 4.5 mmol/L (3.5-5.1)
[2017-08-07 07:14] LABS: CREATININE 4.02 mg/dl (0.61-1.24)
--- NOTE | 2017-08-07 07:43 | RADRPT ---
PROCEDURE: XR Chest. CLINICAL INDICATION: Shortness of breath. TECHNIQUE: Single frontal view. COMPARISON: 08/06/2017. FINDINGS: The endotracheal tube and left subclavian vein catheter remain in satisfactory position. There is de nse consolidation throughout the right lung, likely due to a large right pleural effusion. There is mild left basilar atelectasis and a small left pleural effusion. The heart is enlarged. There is no pneumothorax. IMPRESSION: 1. No change from 08/06/2017. RPTAT: QQ .Speedy Orosco MD, MD Date Time Electronically viewed and signed by .Speedy Orosco MD, MD on 08/07/2017 07:42 .R/
[2017-08-07] MEDS: MEROPENEM 500MG/50 ML (PMX) 50 ML IVPB SCH (08:16)
[2017-08-07 08:53] LABS: AADO2 Arterial 605.6 mmHg (7.0-24.0); Allen Test ACCEPTAB; Arterial Base Excess -7.2 mmol/L (-3.0-3); Arterial COHb 0.3 % (0.0-3.0); Arterial Fraction of Oxyhgb 94.1 % (93.0-99.0); Arterial HCO3 16.2 mmol/L (22.0-26.0); Arterial MetHb 0.2 % (0.0-1.5); Arterial Total Hemglobin 11.6 g/dl (12.0-18.0); MODE VENT - AC
--- NOTE | 2017-08-07 08:54 | PN ---
Date/Time of Note Date/Time of Note DATE: 08/07/17 TIME: 08:43 Assessment/Plan VTE Prophylaxis VTE Prophylaxis Intervention: heparin Lines/Catheters IV Catheter Type (from [facility]): HODA CATH Central line still needed: Yes Urinary Cath still in place: No Assessment/Plan Chief Complaint/Hosp Course 1. Status post cardiopulmonary arrest with return of spontaneous circulation on 08/06/2017. Currently intubated. Remains on pressors. Poor prognosis. Await neurologic recovery. 2. Hypotension. The patient requiring pressors. Etiology could be multifactorial including hypovolemic along with sepsis. On antibiotics for underlying sepsis with underlying septic shock probably secondary to UTI ( colony count is only <10,000/ml). Fluid WBC from paracentesis fluid 676. 3. Acute respiratory failure, hypoxic. Most probably secondary to underlying pleural effusion that is worsening. Status post intubation on 08/06/2017. 4. Large right-sided pleural effusion. New onset. Possibly malignant in origin. Management as per pulmonology. 5. Hepatocellular B-cell lymphoma with malignant ascites. Undergoes chemotherapy at [facility]. Continue supportive care. 6. Recurrent ascites. Malignant. S/P paracentesis on 08/02/2017. 7. Acute kidney injury. Nonoliguric. Etiology could be hemodynamics versus others. Use nephrotoxic medications with caution. Nephrology following. The patient was started on hemodialysis on 08/06/2017, but could not tolerate the procedure. 8. Sinus tachycardia. Etiology unclear. Thyroid panel within normal limits. Cardiology following. 9. Metabolic acidosis. Probably secondary to acute kidney injury. Bicarbonate as per nephrology. Nephrology following the patient. Patient too unstable for hemodialysis. 10. Anemia. Normocytic and hypochromic. Most probably anemia of chronic disease. Monitor H&H closely. 11. Fluids, electrolytes, and nutrition. NPO. 12. DVT prophylaxis. Subcutaneous heparin. 13. Gastrointestinal prophylaxis. Proton pump inhibitors. 14. Plan. Continue pressors for blood pressure support. Wean off pressors as tolerated. Poor prognosis. Palliative care following. The patient is unstable for transfer to [facility] at this time. Case discussed with Dr. Crabtree. Plan of care was explained to the patient's family who was at the bedside. Critical care time: 45 minutes. Problems: Subjective 24 Hr Interval Summary Free Text/Dictation Patient remains orally intubated. Remains on 3 pressors. Exam/Review of Systems Vital Signs Vitals Vital Signs Date Time Temp Pulse Resp B/P Pulse Ox O2 Delivery O2 Flow Rate FiO2 08/07/17 08:30 119 23 93/70 99 Mechanical Ventilator 08/07/17 08:00 102.4 08/07/17 05:20 100 08/06/17 10:30 5.0 Intake and Output 08/06/17 08/06/17 08/07/17 15:00 23:00 07:00 Intake Total 1051 ml 2222.39 ml 3460.46 ml Output Total 500 ml 0 ml 40 ml Balance 551 ml 2222.39 ml 3420.46 ml Exam General: Adequately build 61 year-old male lying in orally intubated and mechanically ventilated. HEENT: Normocephalic, atraumatic. Eyes: Anicteric sclerae, conjunctivae clear. ENT: Nasal septum midline, oral mucosa moist. Neck supple. JVD noticed. Respiratory: Bilaterally diminished breath sounds. Scattered rhonchi. Orally intubated and mechanically ventilated. Cardiovascular: S1, S2 heard. Tachycardia. Abdomen: Soft and nontender. Distended. Bowel sounds positive in all 4 quadrants. Genitourinary: Deferred. Extremities: No cyanosis, no clubbing. Right lower extremity edema. Peripheral pulses palpable. Neurologic: The patient is off sedation. No spontaneous movements. Positive gag. Skin: Normal skin turgor. No skin rashes. Results Result Diagram: 08/07/1760408/07/17604 Results 24 hrs Laboratory Tests Test 08/06/17 12:07 08/06/17 12:38 08/06/17 14:02 08/06/17 14:35 Bedside Glucose 91 90 Blood Gas Specimen Source Blood arterial Blood arterial Arterial Blood Date Drawn 08/06/2017 12:15:10 PM 08/06/2017 2:47:28 PM Arterial Blood pH (Temp corrected) 6.903 *L 7.292 *L Arterial Blood pCO2 (Temp correct) 29.0 L 25.8 L Arterial Blood pO2 (Temp corrected) 114.6 H 77.7 L Arterial Blood HCO3 5.6 *L 12.2 L Arterial Blood Base Excess -26.5 L -12.8 L Arterial Blood Oxygen Saturation 95.1 93.6 L Liu Test ACCEPTAB ACCEPTAB Arterial Blood Gas Puncture Site Right Radial Right Radial Arterial Blood Carboxyhemoglobin 0.3 0.2 Arterial Blood Methemoglobin 0.4 0.3 Blood Gas A-a O2 Differential 569.4 H 609.5 H Oxyhemoglobin Percent 94.4 93.1 Total Hemoglobin 13.5 10.6 L Blood Gas Temperature 37.0 37.0 Blood Gas Respiration Rate 20.0 28.0 Blood Gas Actual Respiration Rate 26 34 Blood Gas Modality VENT - AC VENT - AC FiO2 100.0 100.0 Blood Gas Tidal Volume 500.0 500.0 Blood Gas Low PEEP Setting 5.0 5.0 Blood Gas Critical Value Read Back J LEVI MAST Blood Gas Notified Whom SARAH Casiano Blood Gas Notified Time 08/06/2017 12:43:21 PM 08/06/2017 2:56:17 PM Test 08/07/17 06:05 White Blood Count 8.4 # Red Blood Count 3.36 L Hemoglobin 9.8 L Hematocrit 30.9 L Mean Corpuscular Volume 92.0 Mean Corpuscular Hemoglobin 29.2 Mean Corpuscular Hemoglobin Concent 31.7 L Red Cell Distribution Width 25.1 H Platelet Count 65 #L Mean Platelet Volume 10.1 Neutrophils % 89.6 H Lymphocytes % 3.0 L Monocytes % 5.3 Eosinophils % 0.1 Basophils % 0.0 Nucleated Red Blood Cells % 8.7 H Neutrophils # (Manual) 7.5 Lymphocytes # 0.3 L Monocytes # 0.4 Eosinophils # 0.0 Basophils # 0.0 Nucleated Red Blood Cells # 0.7 H Sodium Level 139 Potassium Level 4.5 Chloride Level 105 Carbon Dioxide Level 19 L Anion Gap 20 H Blood Urea Nitrogen 57 H Creatinine 4.02 H Glucose Level 189 Calcium Level 8.3 L Phosphorus Level 5.7 H Magnesium Level 2.1 B-Type Natriuretic Peptide 34655 H Medications Medications Current Medications Ondansetron HCl (Zofran Inj) 4 mg Q6H PRN IV NAUSEA AND/OR VOMITING Last administered on 08/04/17t 19:50; Admin Dose 4 MG; Start 08/01/17 at 17:00 Acetaminophen (Tylenol Tab) 650 mg Q6H PRN PO PAIN LEVEL 1-3 OR FEVER; Start at 17:00 Acetaminophen (Tylenol Supp) 650 mg Q6H PRN [place] PAIN LEVEL 1-3 OR FEVER Last administered on 08/07/17 07:26; Admin Dose 650 MG; Start 08/01/17 at 17:00 Acetaminophen/ Hydrocodone Bitart ([place] (5/325)) 1 tab Q6H PRN PO MODERATE PAIN LEVEL 4-6 Last administered on 08/06/17 02:19; Admin Dose 1 TAB; Start 08/01 at 17:00 Acetaminophen/ Hydrocodone Bitart ([place] (5/325)) 2 tab Q6H PRN PO SEVERE PAIN LEVEL 7-10; Start 08/01/17 at 17:00 Morphine Sulfate (morphine) 2 mg Q4H PRN IV SEVERE PAIN LEVEL 7-10 Last administered on 08/06/17 11:36; Admin Dose 2 MG; Start 08/01/17 at 17:00 Docusate Sodium (Colace) 100 mg Q12H PRN PO CONSTIPATION; Start 08/01/17 at 17: 00 Magnesium Hydroxide (Milk Of Mag) 30 ml DAILY PRN PO CONSTIPATION; Start at 17:00 Bisacodyl (Dulcolax Supp) 10 mg DAILY PRN [place] CONSTIPATION; Start 08/01/17 at 17: 00 Heparin Sodium (Porcine) 5000 unit 5,000 unit Q8 SC Last administered on 05:25; Admin Dose 5,000 UNIT; Start 08/02/17 at 14:00 Norepinephrine 16 mg/Dextrose 500 ml @ 1.87 mls/hr TITRATE IV Last administered on 08/07/17 05:23; Admin Dose 48.75 MLS/HR; Start 08/03/17 at 08:30 Sodium Chloride (NS) 1,000 ml @ 0 mls/hr Q0M IV Last administered on 08/03/17 14:59; Admin Dose 0 MLS/HR; Start 08/03/17 at 15:00 Pantoprazole 40 mg 40 mg DAILY@06 PO Last administered on 08/06/17 06:10; Admin Dose 40 MG; Start 08/04/17 at 06:00 Meropenem/Sodium Chloride 50 ml @ 100 mls/hr Q12 IVPB Last administered on 08/07 08:16; Admin Dose 100 MLS/HR; Start 08/04/17 at 21:00 Midazolam HCl 50 ml @ 1 mls/hr TITRATE IV Last administered on 08/06/17 21:22; Admin Dose 3 MLS/HR; Start 08/06/17 at 11:00 Sodium Bicarbonate 150 meq/Dextrose/ Sodium Chloride 1,150 ml @ 150 mls/hr Q7H40M IV Last administered on 08/07/17 08:25; Admin Dose 150 MLS/HR; Start 08/06/17 at 14:30 Vasopressin 60 unit/Dextrose 60 ml @ 0 mls/hr Q12H IV Last administered on 01:02; Admin Dose 0.04 MLS/HR; Start 08/06/17 at 13:00 Phenylephrine HCl 80 mg/Dextrose 250 ml @ 18.75 mls/ hr TITRATE IV Last administered on 08/07/17 08:27; Admin Dose 56.25 MLS/HR; Start 08/06/17 at 14:30 Epinephrine 4 mg/ Sodium Chloride 250 ml @ 0 mls/hr TITRATE IV ; Start 08/06/17 at 14:30 Amiodarone HCl/ Dextrose (Cordarone Iv/ D5W) 500 ml @ 0 mls/hr Q0M IV Last administered on 08/06/17 15:42; Admin Dose 33.3 MLS/HR; Start 08/06/17 at 15:00; Stop 08/07/17 at 14:59 Amikacin Sulfate AMIKACIN PER PHARMACY NOTE XX ; Start 08/06/17 at 16:30 Norepinephrine/ Dextrose (Levophed/D5W) 250 ml @ 0.46 mls/hr TITRATE IV ; Start 08/07/17 at 09:00; Status ARELI HIDALGO NP Aug 07, 2017 08:54
--- NOTE | 2017-08-07 09:49 | CONS ---
Date/Time of Note Date/Time of Note DATE: 08/07/17 TIME: 09:44 Consult Date/Type/Reason Admit Date/Time Aug 01, 2017 at 20:56 Initial Consult Date Type of Consultation: Pulmonary Subjective Grimaces to painful stimuli. Continues 3 vasopressors. Objective Vital Signs Date Time Temp Pulse Resp B/P Pulse Ox O2 Delivery O2 Flow Rate FiO2 08/07/17 09:15 117 25 95/68 99 Mechanical Ventilator 08/07/17 08:00 102.4 08/07/17 08:00 100 08/06/17 10:30 5.0 Intake and Output 08/06/17 08/06/17 08/07/17 15:00 23:00 07:00 Intake Total 1051 ml 2222.39 ml 3460.46 ml Output Total 500 ml 0 ml 40 ml Balance 551 ml 2222.39 ml 3420.46 ml Exam PHYSICAL EXAMINATION: GENERAL APPEARANCE: Older than age-appearing gentleman, on mechanical ventilation intubated sedated VITAL SIGNS: NECK: Supple. No JVD, lymphadenopathy. CARDIAC: S1, S2. No added sounds or murmurs. CHEST: Diminished air entry in both lung peterson. ABDOMEN: Distended, tense, but no guarding or rebound. Diminished bowel sounds EXTREMITIES: No cyanosis, clubbing. 1+ pitting edema. NEUROLOGIC: Generalized weakness. Results/Medications Result Diagram: 08/07/1760408/07/17604 Results 24 hrs Laboratory Tests Test 08/06/17 12:07 08/06/17 12:38 08/06/17 14:02 08/06/17 14:35 Bedside Glucose 91 90 Blood Gas Specimen Source Blood arterial Blood arterial Arterial Blood Date Drawn 08/06/2017 12:15:10 PM 08/06/2017 2:47:28 PM Arterial Blood pH (Temp corrected) 6.903 *L 7.292 *L Arterial Blood pCO2 (Temp correct) 29.0 L 25.8 L Arterial Blood pO2 (Temp corrected) 114.6 H 77.7 L Arterial Blood HCO3 5.6 *L 12.2 L Arterial Blood Base Excess -26.5 L -12.8 L Arterial Blood Oxygen Saturation 95.1 93.6 L Liu Test ACCEPTAB ACCEPTAB Arterial Blood Gas Puncture Site Right Radial Right Radial Arterial Blood Carboxyhemoglobin 0.3 0.2 Arterial Blood Methemoglobin 0.4 0.3 Blood Gas A-a O2 Differential 569.4 H 609.5 H Oxyhemoglobin Percent 94.4 93.1 Total Hemoglobin 13.5 10.6 L Blood Gas Temperature 37.0 37.0 Blood Gas Respiration Rate 20.0 28.0 Blood Gas Actual Respiration Rate 26 34 Blood Gas Modality VENT - AC VENT - AC FiO2 100.0 100.0 Blood Gas Tidal Volume 500.0 500.0 Blood Gas Low PEEP Setting 5.0 5.0 Blood Gas Critical Value Read Back J LEVI MAST Blood Gas Notified Whom SARAH Casiano Blood Gas Notified Time 08/06/2017 12:43:21 PM 08/06/2017 2:56:17 PM Test 08/07/17 06:05 08/07/17 07:00 White Blood Count 8.4 # Red Blood Count 3.36 L Hemoglobin 9.8 L Hematocrit 30.9 L Mean Corpuscular Volume 92.0 Mean Corpuscular Hemoglobin 29.2 Mean Corpuscular Hemoglobin Concent 31.7 L Red Cell Distribution Width 25.1 H Platelet Count 65 #L Mean Platelet Volume 10.1 Neutrophils % 89.6 H Lymphocytes % 3.0 L Monocytes % 5.3 Eosinophils % 0.1 Basophils % 0.0 Nucleated Red Blood Cells % 8.7 H Neutrophils # (Manual) 7.5 Lymphocytes # 0.3 L Monocytes # 0.4 Eosinophils # 0.0 Basophils # 0.0 Nucleated Red Blood Cells # 0.7 H Sodium Level 139 Potassium Level 4.5 Chloride Level 105 Carbon Dioxide Level 19 L Anion Gap 20 H Blood Urea Nitrogen 57 H Creatinine 4.02 H Glucose Level 189 Calcium Level 8.3 L Phosphorus Level 5.7 H Magnesium Level 2.1 B-Type Natriuretic Peptide 85823 H Blood Gas Specimen Source Blood arterial Arterial Blood Date Drawn 08/07/2017 8:30:20 AM Arterial Blood pH (Temp corrected) 7.402 Arterial Blood pCO2 (Temp correct) 26.6 L Arterial Blood pO2 (Temp corrected) 80.8 Arterial Blood HCO3 16.2 L Arterial Blood Base Excess -7.2 L Arterial Blood Oxygen Saturation 94.6 L Liu Test ACCEPTAB Arterial Blood Gas Puncture Site Right Radial Arterial Blood Carboxyhemoglobin 0.3 Arterial Blood Methemoglobin 0.2 Blood Gas A-a O2 Differential 605.6 H Oxyhemoglobin Percent 94.1 Total Hemoglobin 11.6 L Blood Gas Temperature 37.0 Blood Gas Respiration Rate 28.0 Blood Gas Actual Respiration Rate 32 Blood Gas Modality VENT - AC FiO2 100.0 Blood Gas Tidal Volume 500.0 Blood Gas Low PEEP Setting 5.0 Blood Gas Notified Whom DT Blood Gas Notified Time 08/07/2017 8:52:17 AM Medications Current Medications Ondansetron HCl (Zofran Inj) 4 mg Q6H PRN IV NAUSEA AND/OR VOMITING Last administered on 08/04/17 19:50; Admin Dose 4 MG; Start 08/01/17 at 17:00 Acetaminophen (Tylenol Tab) 650 mg Q6H PRN PO PAIN LEVEL 1-3 OR FEVER; Start at 17:00 Acetaminophen (Tylenol Supp) 650 mg Q6H PRN [place] PAIN LEVEL 1-3 OR FEVER Last administered on 08/07/17 07:26; Admin Dose 650 MG; Start 08/01/17 at 17:00 Acetaminophen/ Hydrocodone Bitart ([place] (5/325)) 1 tab Q6H PRN PO MODERATE PAIN LEVEL 4-6 Last administered on 08/06/17 02:19; Admin Dose 1 TAB; Start 08/01 at 17:00 Acetaminophen/ Hydrocodone Bitart ([place] (5/325)) 2 tab Q6H PRN PO SEVERE PAIN LEVEL 7-10; Start 08/01/17 at 17:00 Morphine Sulfate (morphine) 2 mg Q4H PRN IV SEVERE PAIN LEVEL 7-10 Last administered on 08/06/17 11:36; Admin Dose 2 MG; Start 08/01/17 at 17:00 Docusate Sodium (Colace) 100 mg Q12H PRN PO CONSTIPATION; Start 08/01/17 at 17: 00 Magnesium Hydroxide (Milk Of Mag) 30 ml DAILY PRN PO CONSTIPATION; Start at 17:00 Bisacodyl (Dulcolax Supp) 10 mg DAILY PRN [place] CONSTIPATION; Start 08/01/17 at 17: 00 Heparin Sodium (Porcine) 5000 unit 5,000 unit Q8 SC Last administered on 05:25; Admin Dose 5,000 UNIT; Start 08/02/17 at 14:00 Sodium Chloride (NS) 1,000 ml @ 0 mls/hr Q0M IV Last administered on 08/03/17 14:59; Admin Dose 0 MLS/HR; Start 08/03/17 at 15:00 Pantoprazole 40 mg 40 mg DAILY@06 PO Last administered on 08/06/17 06:10; Admin Dose 40 MG; Start 08/04/17 at 06:00 Meropenem/Sodium Chloride 50 ml @ 100 mls/hr Q12 IVPB Last administered on 08/07 08:16; Admin Dose 100 MLS/HR; Start 08/04/17 at 21:00 Midazolam HCl 50 ml @ 1 mls/hr TITRATE IV Last administered on 08/06/17 21:22; Admin Dose 3 MLS/HR; Start 08/06/17 at 11:00 Sodium Bicarbonate 150 meq/Dextrose/ Sodium Chloride 1,150 ml @ 150 mls/hr Q7H40M IV Last administered on 08/07/17 08:25; Admin Dose 150 MLS/HR; Start 08/06/17 at 14:30 Vasopressin 60 unit/Dextrose 60 ml @ 0 mls/hr Q12H IV Last administered on 01:02; Admin Dose 0.04 MLS/HR; Start 08/06/17 at 13:00 Phenylephrine HCl 80 mg/Dextrose 250 ml @ 18.75 mls/ hr TITRATE IV Last administered on 08/07/17 08:27; Admin Dose 56.25 MLS/HR; Start 08/06/17 at 14:30 Epinephrine 4 mg/ Sodium Chloride 250 ml @ 0 mls/hr TITRATE IV ; Start 08/06/17 at 14:30 Amiodarone HCl/ Dextrose (Cordarone Iv/ D5W) 500 ml @ 0 mls/hr Q0M IV Last administered on 08/06/17 15:42; Admin Dose 33.3 MLS/HR; Start 08/06/17 at 15:00; Stop 08/07/17 at 14:59 Amikacin Sulfate AMIKACIN PER PHARMACY NOTE XX ; Start 08/06/17 at 16:30 Norepinephrine/ Dextrose (Levophed/D5W) 250 ml @ 0.46 mls/hr TITRATE IV ; Start 08/07/17 at 09:00 Assessment/Plan Chief Complaint/Hosp Course IMPRESSION: 1. Septic shock, possibly secondary to spontaneous bacterial peritonitis. Pseudomonal and enterococcal UTI 2. History of underlying lymphoma. 3. Hypoxemic respiratory failure with progressive right pleural effusion. PLAN: 1. Patient will need continued broad-spectrum antibiotic coverage. Continues meropenem, amikacin and vanc. 2. Continue mechanical ventilation, continue current settings 3. Hemodialysis held secondary to low BP 4. Continue electrolytes per renal 5. DVT and GI prophylaxis. overall prognosis remains guarded. discussed wtih heme onc team at [facility] yesterday patient not stable for transfer to [facility] at present. Problems: ASHLEY MAST MD, [facility] Aug 07, 2017 09:49
--- NOTE | 2017-08-07 10:23 | PN ---
DATE: 08/07/2017 SUBJECTIVE DATA: The patient yesterday had hemodialysis, after 30 minutes the patient had a code arrest. The patient after being coded was able to have spontaneous return of circulation. The patient currently is critically ill, on maximal pressor support and FiO2 100 percent. Please note, the patient's family was at bedside. I spoke with them answering all questions in great detail. OBJECTIVE DATA: VITAL SIGNS: Blood pressure is 93/66, respirations, pulse 117, temperature 98.6. HEENT: Head is normocephalic. NECK: Supple. CARDIAC: Heart is tachycardic. LUNGS: Diminished breath sounds base. ABDOMEN: Soft, nontender to palpation. EXTREMITIES: Negative for clubbing, cyanosis. Positive edema. DERMATOLOGIC: No rashes. MUSCULOSKELETAL: No joint effusion. NEUROLOGIC: The patient is obtunded. MEDICATIONS: Reviewed. LABORATORY AND DIAGNOSTIC DATA: Sodium 139, potassium 4.5, BUN 4057, creatinine 4.02, calcium 8.3. Phosphorus 5.7. White count 8.4, hemoglobin 9.8, hematocrit 30.9, platelet count is 65,000. ABG was reviewed. ASSESSMENT AND PLAN: 1. Oligoaneuric acute kidney injury with previously unknown baseline creatinine. Etiology secondary to septic acute tubular necrosis. The patient was initially on hemodialysis yesterday, however, after 30 minutes the patient underwent code arrest. Currently, patient is clinically unstable for hemodialysis, as he is maxed-out on 3 pressors, with blood pressures in the 90s. I spoke with family at bedside, informing them that the patient is unstable for dialysis, they understood. At this point we will continue current supportive care. Continue pressor support. Continue full ventilatory support. Continue renally dose all meds. 2. Metabolic acidosis, etiology secondary to acute kidney injury. Lactic acidosis. Continue bicarbonate therapy. 3. Anemia monitor hemoglobin and hematocrit levels. 4. Mineral bone disorder. Monitor calcium and phosphorus levels. 5. Septic shock. Underlying source unclear. The patient remains on broad-spectrum antibiotics, pressor support, and intravenous fluids continue. 6. Lymphoma. The patient is status post-chemotherapy. Continue to monitor. 7. Tachycardia. The etiology is secondary to sepsis. 8. Arrhythmia. The patient is currently on amiodarone drip. Will follow up with cardiology colleagues. 9. Ventilator dependent respiratory failure. Ventilator settings reviewed. Arterial blood gases reviewed. Follow up with Pulmonary. 10. Acute encephalopathy, etiology is toxic metabolic. 11. Pleural effusion. CRITICAL CARE TIME: Please note, I spent over 40 minutes of critical care time with this patient. Dictated By: Ravin Chandler DO /[email or web address]/von /Document#: [id number]
[2017-08-07] MEDS: NORepinephrine 32 MG in DEXTROSE 5% 218 ML IV SCH (10:26)
--- NOTE | 2017-08-07 10:35 | PN ---
Date/Time of Note Date/Time of Note DATE: 08/07/17 TIME: 10:34 Assessment/Plan VTE Prophylaxis VTE Prophylaxis Intervention: SCD's Lines/Catheters IV Catheter Type (from Nrs): HODA CATH Urinary Cath still in place: No Assessment/Plan Assessment/Plan Sinus tachycardia Respiratory distress Hypotension secondary to shock Acute kidney injury Preserved ejection fraction Ascites status post paracentesis Lymphoma afib with rvr -Patient with worsening respiratory status and pulmonary at bedside and planned for intubation. Continue to titrate IV pressor to maintain SBP greater than 90 and or map above 60. Patient with increased abdominal ascites and discomfort, possible repeat paracentesis, would recommend preemptively giving albumin as well. Antibiotics as per infectious disease. No AV manan blocking agents or antihypertensive medications at the current time -on amiodarone -on pressor suport Subjective 24 Hr Interval Summary Free Text/Dictation the patient with no change Exam/Review of Systems Vital Signs Vitals Vital Signs Date Time Temp Pulse Resp B/P Pulse Ox O2 Delivery O2 Flow Rate FiO2 08/07/17 09:45 118 23 86/66 99 Mechanical Ventilator 08/07/17 08:00 102.4 08/07/17 08:00 100 08/06/17 10:30 5.0 Intake and Output 08/06/17 08/06/17 08/07/17 15:00 23:00 07:00 Intake Total 1051 ml 2222.39 ml 3460.46 ml Output Total 500 ml 0 ml 40 ml Balance 551 ml 2222.39 ml 3420.46 ml Results Result Diagram: 08/07/17 0605 08/07/17 0605 Results 24 hrs Laboratory Tests Test 08/06/17 12:07 08/06/17 12:38 08/06/17 14:02 08/06/17 14:35 Bedside Glucose 91 90 Blood Gas Specimen Source Blood arterial Blood arterial Arterial Blood Date Drawn 08/06/2017 12:15:10 PM 08/06/2017 2:47:28 PM Arterial Blood pH (Temp corrected) 6.903 *L 7.292 *L Arterial Blood pCO2 (Temp correct) 29.0 L 25.8 L Arterial Blood pO2 (Temp corrected) 114.6 H 77.7 L Arterial Blood HCO3 5.6 *L 12.2 L Arterial Blood Base Excess -26.5 L -12.8 L Arterial Blood Oxygen Saturation 95.1 93.6 L Liu Test ACCEPTAB ACCEPTAB Arterial Blood Gas Puncture Site Right Radial Right Radial Arterial Blood Carboxyhemoglobin 0.3 0.2 Arterial Blood Methemoglobin 0.4 0.3 Blood Gas A-a O2 Differential 569.4 H 609.5 H Oxyhemoglobin Percent 94.4 93.1 Total Hemoglobin 13.5 10.6 L Blood Gas Temperature 37.0 37.0 Blood Gas Respiration Rate 20.0 28.0 Blood Gas Actual Respiration Rate 26 34 Blood Gas Modality VENT - AC VENT - AC FiO2 100.0 100.0 Blood Gas Tidal Volume 500.0 500.0 Blood Gas Low PEEP Setting 5.0 5.0 Blood Gas Critical Value Read Back J LEVI MAST Blood Gas Notified Whom SARAH Casiano Blood Gas Notified Time 08/06/2017 12:43:21 PM 08/06/2017 2:56:17 PM Test 08/07/17 06:05 08/07/17 07:00 White Blood Count 8.4 # Red Blood Count 3.36 L Hemoglobin 9.8 L Hematocrit 30.9 L Mean Corpuscular Volume 92.0 Mean Corpuscular Hemoglobin 29.2 Mean Corpuscular Hemoglobin Concent 31.7 L Red Cell Distribution Width 25.1 H Platelet Count 65 #L Mean Platelet Volume 10.1 Neutrophils % 89.6 H Lymphocytes % 3.0 L Monocytes % 5.3 Eosinophils % 0.1 Basophils % 0.0 Nucleated Red Blood Cells % 8.7 H Neutrophils # (Manual) 7.5 Lymphocytes # 0.3 L Monocytes # 0.4 Eosinophils # 0.0 Basophils # 0.0 Nucleated Red Blood Cells # 0.7 H Sodium Level 139 Potassium Level 4.5 Chloride Level 105 Carbon Dioxide Level 19 L Anion Gap 20 H Blood Urea Nitrogen 57 H Creatinine 4.02 H Glucose Level 189 Calcium Level 8.3 L Phosphorus Level 5.7 H Magnesium Level 2.1 B-Type Natriuretic Peptide 78074 H Blood Gas Specimen Source Blood arterial Arterial Blood Date Drawn 08/07/2017 8:30:20 AM Arterial Blood pH (Temp corrected) 7.402 Arterial Blood pCO2 (Temp correct) 26.6 L Arterial Blood pO2 (Temp corrected) 80.8 Arterial Blood HCO3 16.2 L Arterial Blood Base Excess -7.2 L Arterial Blood Oxygen Saturation 94.6 L Liu Test ACCEPTAB Arterial Blood Gas Puncture Site Right Radial Arterial Blood Carboxyhemoglobin 0.3 Arterial Blood Methemoglobin 0.2 Blood Gas A-a O2 Differential 605.6 H Oxyhemoglobin Percent 94.1 Total Hemoglobin 11.6 L Blood Gas Temperature 37.0 Blood Gas Respiration Rate 28.0 Blood Gas Actual Respiration Rate 32 Blood Gas Modality VENT - AC FiO2 100.0 Blood Gas Tidal Volume 500.0 Blood Gas Low PEEP Setting 5.0 Blood Gas Notified Whom DT Blood Gas Notified Time 08/07/2017 8:52:17 AM Medications Medications Current Medications Ondansetron HCl (Zofran Inj) 4 mg Q6H PRN IV NAUSEA AND/OR VOMITING Last administered on 08/04/17 19:50; Admin Dose 4 MG; Start 08/01/17 at 17:00 Acetaminophen (Tylenol Tab) 650 mg Q6H PRN PO PAIN LEVEL 1-3 OR FEVER; Start at 17:00 Acetaminophen (Tylenol Supp) 650 mg Q6H PRN [place] PAIN LEVEL 1-3 OR FEVER Last administered on 08/07/17 07:26; Admin Dose 650 MG; Start 08/01/17 at 17:00 Acetaminophen/ Hydrocodone Bitart ([place] (5/325)) 1 tab Q6H PRN PO MODERATE PAIN LEVEL 4-6 Last administered on 08/06/17 02:19; Admin Dose 1 TAB; Start 08/01 at 17:00 Acetaminophen/ Hydrocodone Bitart ([place] (5/325)) 2 tab Q6H PRN PO SEVERE PAIN LEVEL 7-10; Start 08/01/17 at 17:00 Morphine Sulfate (morphine) 2 mg Q4H PRN IV SEVERE PAIN LEVEL 7-10 Last administered on 08/06/17 11:36; Admin Dose 2 MG; Start 08/01/17 at 17:00 Docusate Sodium (Colace) 100 mg Q12H PRN PO CONSTIPATION; Start 08/01/17 at 17: 00 Magnesium Hydroxide (Milk Of Mag) 30 ml DAILY PRN PO CONSTIPATION; Start at 17:00 Bisacodyl (Dulcolax Supp) 10 mg DAILY PRN [place] CONSTIPATION; Start 08/01/17 at 17: 00 Heparin Sodium (Porcine) 5000 unit 5,000 unit Q8 SC Last administered on 05:25; Admin Dose 5,000 UNIT; Start 08/02/17 at 14:00 Sodium Chloride (NS) 1,000 ml @ 0 mls/hr Q0M IV Last administered on 08/03/17 14:59; Admin Dose 0 MLS/HR; Start 08/03/17 at 15:00 Pantoprazole 40 mg 40 mg DAILY@06 PO Last administered on 08/06/17 06:10; Admin Dose 40 MG; Start 08/04/17 at 06:00 Meropenem/Sodium Chloride 50 ml @ 100 mls/hr Q12 IVPB Last administered on 08/07 08:16; Admin Dose 100 MLS/HR; Start 08/04/17 at 21:00 Midazolam HCl 50 ml @ 1 mls/hr TITRATE IV Last administered on 08/06/17 21:22; Admin Dose 3 MLS/HR; Start 08/06/17 at 11:00 Sodium Bicarbonate 150 meq/Dextrose/ Sodium Chloride 1,150 ml @ 150 mls/hr Q7H40M IV Last administered on 08/07/17 08:25; Admin Dose 150 MLS/HR; Start 08/06/17 at 14:30 Vasopressin 60 unit/Dextrose 60 ml @ 0 mls/hr Q12H IV Last administered on 01:02; Admin Dose 0.04 MLS/HR; Start 08/06/17 at 13:00 Phenylephrine HCl 80 mg/Dextrose 250 ml @ 18.75 mls/ hr TITRATE IV Last administered on 08/07/17 08:27; Admin Dose 56.25 MLS/HR; Start 08/06/17 at 14:30 Epinephrine 4 mg/ Sodium Chloride 250 ml @ 0 mls/hr TITRATE IV ; Start 08/06/17 at 14:30 Amiodarone HCl/ Dextrose (Cordarone Iv/ D5W) 500 ml @ 0 mls/hr Q0M IV Last administered on 08/06/17 15:42; Admin Dose 33.3 MLS/HR; Start 08/06/17 at 15:00; Stop 08/07/17 at 14:59 Amikacin Sulfate AMIKACIN PER PHARMACY NOTE XX ; Start 08/06/17 at 16:30 Norepinephrine/ Dextrose (Levophed/D5W) 250 ml @ 0.46 mls/hr TITRATE IV ; Start 08/07/17 at 09:00 INNO JOLLEY MD Aug 07, 2017 10:35
--- NOTE | 2017-08-07 15:47 | PN ---
DATE: 08/07/2017 SUBJECTIVE DATA: The patient remains on multiple pressors. Spiking fevers with a T-max of 103.1, pulse 117, respirations 30, blood pressure 96/76, saturation 100 on vent. LABORATORY AND DIAGNOSTIC DATA: WBC 8.4, H and H 9.8 and 30.9, platelets 65, neutrophils 89.6. BUN 57, creatinine 4.02. Microbiology, repeat cultures pending. DIAGNOSTICS: Chest x-ray this morning revealed no change. INDWELLINGS: The patient has endotracheal tube,left subclaviantriple lumen catheter, right femoral Pool catheter. ANTIMICROBIALS: 1. Vancomycin. 2. Amikacin. 3. Meropenem. PHYSICAL EXAMINATION: GENERAL: This is a chronically ill-appearing, elderly man, who is intubated, sedated, in no distress. HEENT: Head atraumatic, normocephalic. Sclerae anicteric. Buccal mucosa dry. NECK: Supple. CHEST: Rise symmetrical. Breath sounds diminished at the bases. HEART: S1, S2. Tachycardic, regular. ABDOMEN: Distended, positive ascites. EXTREMITIES: With trace edema. Mottled and cyanotic. ASSESSMENT: 1. Severe sepsis with shock and multisystem organ failure. 2. Possible spontaneous bacterial peritonitis. 3. Acute respiratory failure, rule out aspiration. 4. Large pleural effusion. 5. Acute on chronic kidney disease. 6. Malignant ascites, possible spontaneous bacterial peritonitis. 7. Anemia with thrombocytopenia likely secondary to sepsis. 8. Hepatocellular lymphoma. 9. Mild polymicrobial urinary tract infection on admission. PLAN: The patient remains hemodynamically unstable. Covered with appropriate antibiotics. He is being followed by multiple consultants. Pending sputum, blood and urine cultures repeated yesterday. PROGNOSIS: Guarded. Dictated By: Haris Avalos NP /kwesi/magdalena /Document#: [id number]
[2017-08-07] MEDS ORDERED: AMIKACIN 325 MG in SOD CHLORIDE 0.9% 100 ML IVPB SCH (18:00)
[2017-08-07] MEDS: ACETAMINOPHEN 1000MG/100ML IV 100 ML IVPB PRN (22:35)
[2017-08-08] VITALS (105 sets, daily range): BP systolic 63–141; BP diastolic 17–93; PULSE 49–159; RESP 22–35
[2017-08-08] MEDS: VASOPRESSIN 60 UNIT in DEXTROSE 5% 57 ML IV SCH ×2 (00:15→13:00)
[2017-08-08] MEDS: SODIUM BICARBONATE (IV ADD) 150 MEQ in DEXTROSE 5%-0.45% NACL 1,000 ML IV SCH ×5 (00:47→23:22)
[2017-08-08] MEDS: NORepinephrine 32 MG in DEXTROSE 5% 218 ML IV SCH ×2 (02:50→18:00)
[2017-08-08] MEDS: PHENYLephrine 80 MG in DEXTROSE 5% 242 ML IV SCH ×5 (03:09→20:31)
[2017-08-08 04:45] LABS: ABNORMAL IP MESSAGE 1; HEMATOCRIT 33.2 % (42.0-52.0); HEMOGLOBIN 10.8 g/dl (14.0-18.0); MEAN CORPUSCULAR HEMOGLOBIN 30.3 pg (29.0-33.0); MEAN CORPUSCULAR HGB CONC 32.5 g/dl (32.0-37.0); MEAN CORPUSCULAR VOLUME 93.3 fl (82.0-101.0); MEAN PLATELET VOLUME 10.6 fl (7.4-10.4); NUCLEATED RED BLOOD CELLS% 4.7 /100WBC (0.0-0.0); PLATELET COUNT 56 10^3/UL (140-415); POSITIVE DIFF @See below; RED BLOOD COUNT 3.56 10^6/ul (4.70-6.10); RED CELL DISTRIBUTION WIDTH 25.6 % (11.5-14.5); WHITE BLOOD COUNT 13.1 10^3/ul (4.8-10.8)
[2017-08-08 05:09] LABS: MAGNESIUM 2.1 mg/dl (1.7-2.5); PHOSPHORUS 7.3 mg/dl (2.5-4.9); POTASSIUM 4.2 mmol/L (3.5-5.1)
[2017-08-08 05:17] LABS: CREATININE 4.82 mg/dl (0.61-1.24)
[2017-08-08] MEDS: PANTOPRAZOLE (EC) 40 MG TAB PO SCH (05:28)
[2017-08-08] MEDS: HEPARIN 5,000 UNIT/0.5 ML VIAL SC SCH ×3 (05:29→21:53)
--- NOTE | 2017-08-08 08:09 | PN ---
DATE: 08/08/2017 SUBJECTIVE DATA: The patient is critically ill, on multiple pressors. The patient's family at bedside. The patient is clinically unstable for hemodialysis. No other events noted. OBJECTIVE DATA: VITAL SIGNS: Blood pressure is 78/69, respirations 24, pulse 126, temperature 98.6. HEENT: Head is normocephalic. NECK: Supple. CARDIAC: Heart is tachycardic. LUNGS: Diminished breath sounds base. ABDOMEN: Soft, nontender to palpation. EXTREMITIES: Negative for clubbing, cyanosis. Positive edema. DERMATOLOGIC: Clean. No rashes. MUSCULOSKELETAL: No joint effusion. NEUROLOGIC: No change in exam. MEDICATIONS: Reviewed. LABORATORY AND DIAGNOSTIC DATA: White count 13.1, hemoglobin 10.8, hematocrit 33.2, platelet count is 56. Sodium 139, potassium 4.2, chloride 99, BUN 60, creatinine 4.82, phosphorus 7.3. ABG was reviewed. The patient has pH of 7.40, PCO2 of 26. ASSESSMENT AND PLAN: 1. Acute kidney injury. Previously unknown baseline creatinine. Etiology secondary to septic acute kidney injury and acute tubular necrosis. The patient was initiated 1 time dialysis however was unable to tolerate. The patient is currently maxed out on 3 pressors and is hemodynamically unstable for hemodialysis. I did discuss with the patient's family at bedside. Would otherwise continue current supportive care. Full ventilatory support. Continue antibiotic therapy. 2. Metabolic acidosis secondary to acute kidney injury. Lactic acidosis, improving. Continue bicarbonate drip. Follow up ABG. 3. Anemia. Monitor H and H levels. 4. Mineral bone disorder. Monitor calcium and phosphorus levels. 5. Septic shock. Continue current medical management with broad-spectrum antibiotics, pressor support intravenous fluids. 6. Lymphoma. The patient is status post chemotherapy. Continue to monitor. 7. Tachycardia arrhythmia secondary to sepsis, multifactorial. Continue amiodarone. Follow up with Cardiology. 8. Ventilatory-dependent respiratory failure. Vent settings reviewed. ABGs reviewed. Follow up with Pulmonary. 9. Encephalopathy. Etiology is toxic metabolic. 10. Pleural effusion. CRITICAL CARE TIME: Please note, I spent over 40 minutes of critical care time with this patient. Dictated By: Ravin Chandler DO /kwesi/magdalena /Document#: [id number]
[2017-08-08] MEDS: ACETAMINOPHEN 1000MG/100ML IV 100 ML IVPB PRN ×2 (08:33→15:24)
[2017-08-08 08:58] LABS: AADO2 Arterial 508.9 mmHg (7.0-24.0); Allen Test ACCEPTAB; Arterial Base Excess -11.5 mmol/L (-3.0-3); Arterial COHb 0.3 % (0.0-3.0); Arterial Fraction of Oxyhgb 98.2 % (93.0-99.0); Arterial HCO3 12.4 mmol/L (22.0-26.0); Arterial MetHb 0.3 % (0.0-1.5); Arterial Total Hemglobin 12.3 g/dl (12.0-18.0); MODE VENT - AC
[2017-08-08] MEDS ORDERED: MEROPENEM 500MG/50 ML (PMX) 50 ML IVPB SCH (09:00)
--- NOTE | 2017-08-08 10:45 | RADRPT ---
PROCEDURE: XR Chest. CLINICAL INDICATION: Intubated, respiratory failure TECHNIQUE: Anterior chest x-ray. COMPARISON: Chest radiograph performed the prior day. FINDINGS: There is stable and satisfactory position of the life-support lines. Endotracheal tube terminates at the T4/T5 level, unchanged. The laith is not well visualized due to underpenetrated technique. Left subclavian central venous catheter is unchanged from previous exam. The lung volumes are low. There is crowding of central pulmonary vasculature. Patchy airspace opacities throughout both lungs are unchanged from previous exam. Bibasilar consolidation is unchanged from previous exam. Small bilateral pleural effusions, unchanged on the left and decreased on the right. The cardiomediastinal contour is stable. Cardiac pacemaker joules overlie the heart, unchanged. There is no free air under the hemidiaphragms. The soft tissues and bony structures are unchanged. IMPRESSION: 1. Stable and satisfactory position of the life-support lines. 2. Low lung volumes with compressive changes in bilateral lung bases. 3. Small bilateral pleural effusions. 4. Patchy airspace opacities throughout both lungs may represent pulmonary edema or pneumonia, unch anged. RPTAT: QQ .Deion Case MD, MD Date Time Electronically viewed and signed by .Deion Case MD, on 08/08/2017 10:45 .M/
--- NOTE | 2017-08-08 13:07 | CONS ---
Date/Time of Note Date/Time of Note DATE: 08/08/17 TIME: 13:06 Consult Date/Type/Reason Admit Date/Time Aug 01, 2017 at 20:56 Type of Consultation: Pulmonary Subjective No significant changes. Continues multiple vasopressors. Remains somnolent on mechanical ventilation. Objective Vital Signs Date Time Temp Pulse Resp B/P Pulse Ox O2 Delivery O2 Flow Rate FiO2 08/08/17 12:45 130 25 64/35 99 Mechanical Ventilator 08/08/17 12:00 103.1 08/08/17 08:46 100 08/06/17 10:30 5.0 Intake and Output 08/07/17 08/07/17 08/08/17 15:00 23:00 07:00 Intake Total 1819.65 ml 1937.93 ml 1738.97 ml Output Total 0 ml 50 ml Balance 1819.65 ml 1887.93 ml 1738.97 ml Exam PHYSICAL EXAMINATION: GENERAL APPEARANCE: Older than age-appearing gentleman, on mechanical ventilation intubated sedated VITAL SIGNS: NECK: Supple. No JVD, lymphadenopathy. CARDIAC: S1, S2. No added sounds or murmurs. CHEST: Diminished air entry in both lung peterson. ABDOMEN: Distended, tense, but no guarding or rebound. Diminished bowel sounds EXTREMITIES: No cyanosis, clubbing. 1+ pitting edema. NEUROLOGIC: Generalized weakness. Results/Medications Result Diagram: 08/08/17 0330 08/08/17 0330 Results 24 hrs Laboratory Tests Test 08/08/17 03:30 08/08/17 07:00 White Blood Count 13.1 #H Red Blood Count 3.56 L Hemoglobin 10.8 L Hematocrit 33.2 L Mean Corpuscular Volume 93.3 Mean Corpuscular Hemoglobin 30.3 Mean Corpuscular Hemoglobin Concent 32.5 Red Cell Distribution Width 25.6 H Platelet Count 56 L Mean Platelet Volume 10.6 H Neutrophils % Lymphocytes % Monocytes % Eosinophils % Basophils % Nucleated Red Blood Cells % 4.7 H Neutrophils # (Manual) 11.8 H Lymphocytes # Monocytes # Eosinophils # Basophils # Nucleated Red Blood Cells # Sodium Level 139 Potassium Level 4.2 Chloride Level 99 Carbon Dioxide Level 21 Anion Gap 23 H Blood Urea Nitrogen 60 H Creatinine 4.82 H Glucose Level 138 # Calcium Level 7.0 L Phosphorus Level 7.3 H Magnesium Level 2.1 Blood Gas Specimen Source Blood arterial Arterial Blood Date Drawn 08/08/2017 8:25:52 AM Arterial Blood pH (Temp corrected) 7.340 L Arterial Blood pCO2 (Temp correct) 23.6 L Arterial Blood pO2 (Temp corrected) 180.5 H Arterial Blood HCO3 12.4 L Arterial Blood Base Excess -11.5 L Arterial Blood Oxygen Saturation 98.8 H Liu Test ACCEPTAB Arterial Blood Gas Puncture Site Right Radial Arterial Blood Carboxyhemoglobin 0.3 Arterial Blood Methemoglobin 0.3 Blood Gas A-a O2 Differential 508.9 H Oxyhemoglobin Percent 98.2 Total Hemoglobin 12.3 Blood Gas Temperature 37.0 Blood Gas Respiration Rate 28.0 Blood Gas Actual Respiration Rate 34 Blood Gas Modality VENT - AC FiO2 100.0 Blood Gas Low PEEP Setting 5.0 Blood Gas Notified Whom DT Blood Gas Notified Time 08/08/2017 8:48:29 AM Medications Current Medications Ondansetron HCl (Zofran Inj) 4 mg Q6H PRN IV NAUSEA AND/OR VOMITING Last administered on 08/04/17 19:50; Admin Dose 4 MG; Start 08/01/17 at 17:00 Acetaminophen (Tylenol Tab) 650 mg Q6H PRN PO PAIN LEVEL 1-3 OR FEVER; Start at 17:00 Acetaminophen (Tylenol Supp) 650 mg Q6H PRN [place] PAIN LEVEL 1-3 OR FEVER Last administered on 08/07/17 13:46; Admin Dose 650 MG; Start 08/01/17 at 17:00 Acetaminophen/ Hydrocodone Bitart ([place] (5/325)) 1 tab Q6H PRN PO MODERATE PAIN LEVEL 4-6 Last administered on 08/06/17 02:19; Admin Dose 1 TAB; Start 08/01 at 17:00 Acetaminophen/ Hydrocodone Bitart ([place] (5/325)) 2 tab Q6H PRN PO SEVERE PAIN LEVEL 7-10; Start 08/01/17 at 17:00 Morphine Sulfate (morphine) 2 mg Q4H PRN IV SEVERE PAIN LEVEL 7-10 Last administered on 08/06/17 11:36; Admin Dose 2 MG; Start 08/01/17 at 17:00 Docusate Sodium (Colace) 100 mg Q12H PRN PO CONSTIPATION; Start 08/01/17 at 17: 00 Magnesium Hydroxide (Milk Of Mag) 30 ml DAILY PRN PO CONSTIPATION; Start at 17:00 Bisacodyl (Dulcolax Supp) 10 mg DAILY PRN [place] CONSTIPATION; Start 08/01/17 at 17: 00 Heparin Sodium (Porcine) 5000 unit 5,000 unit Q8 SC Last administered on 05:25; Admin Dose 5,000 UNIT; Start 08/02/17 at 14:00 Sodium Chloride (NS) 1,000 ml @ 0 mls/hr Q0M IV Last administered on 08/03/17 14:59; Admin Dose 0 MLS/HR; Start 08/03/17 at 15:00 Pantoprazole 40 mg 40 mg DAILY@06 PO Last administered on 08/06/17 06:10; Admin Dose 40 MG; Start 08/04/17 at 06:00 Midazolam HCl 50 ml @ 1 mls/hr TITRATE IV Last administered on 08/06/17 21:22; Admin Dose 3 MLS/HR; Start 08/06/17 at 11:00 Sodium Bicarbonate 150 meq/Dextrose/ Sodium Chloride 1,150 ml @ 150 mls/hr Q7H40M IV Last administered on 08/08/17 09:26; Admin Dose 150 MLS/HR; Start at 14:30 Vasopressin 60 unit/Dextrose 60 ml @ 0 mls/hr Q12H IV Last administered on 08/08 00:15; Admin Dose 0.04 MLS/HR; Start 08/06/17 at 13:00 Phenylephrine HCl 80 mg/Dextrose 250 ml @ 18.75 mls/ hr TITRATE IV Last administered on 08/08/17 11:28; Admin Dose 56.25 MLS/HR; Start 08/06/17 at 14:30 Epinephrine/ Sodium Chloride (EPINEPHrine/NS) 250 ml @ 0 mls/hr TITRATE IV ; Start 08/06/17 at 14:30 Amikacin Sulfate AMIKACIN PER PHARMACY NOTE XX ; Start 08/06/17 at 16:30 Norepinephrine 32 mg/Dextrose 250 ml @ 0.46 mls/hr TITRATE IV Last administered on 08/08/17 02:50; Admin Dose 14.06 MLS/HR; Start 08/07/17 at 09:00 Meropenem/Sodium Chloride 50 ml @ 100 mls/hr Q24H IVPB Last administered on 08:18; Admin Dose 100 MLS/HR; Start 08/08/17 at 09:00 Acetaminophen (Ofirmev 1000mg/ 100ml Iv) 100 ml @ 400 mls/hr Q6H PRN IVPB FEVER Last administered on 08/08/17 08:33; Admin Dose 400 MLS/HR; Start at 22:00 Assessment/Plan Chief Complaint/Hosp Course IMPRESSION: 1. Septic shock, possibly secondary to spontaneous bacterial peritonitis. Pseudomonal and enterococcal UTI 2. History of underlying lymphoma with hepatic metastasis. 3. Hypoxemic respiratory failure with progressive right pleural effusion. PLAN: 1. Continues meropenem, amikacin and vanc. 2. Continue mechanical ventilation, continue current settings 3. Hemodialysis held secondary to low BP 4. Continue electrolytes per renal 5. DVT and GI prophylaxis. overall prognosis remains guarded. Patient unstable for transfer to [facility]. Unlikely to survive this event. Problems: ASHLEY MAST MD, [facility] Aug 08, 2017 13:07
[2017-08-08 14:08] LABS: ANISOCYTOSIS 2+ (0-0); ERYTHROBLAST% (NRBC) (M) 33 % (0-0); GIANT THROMBO% (M) 1 % (0-0); MONOCYTES % (M) 2 % (0-11); PLASMA CELLS #M 0.1 10^3/ul (0.0-0.0); PLASMAC%(M) 1 % (0); PLATELET ESTIMATE DECREASED; POIKILOCYTOSIS 3+ (0-0); POLYCHROMASIA 3+ (0-0); SPHEROCYTES 1+ (0-0); TARGET CELLS 1+ (0-0)
--- NOTE | 2017-08-08 14:45 | PN ---
DATE: 08/08/2017 SUBJECTIVE DATA: The patient remains on multiple pressors. Blood pressure fluctuates. Family at bedside. OBJECTIVE DATA: He is spiking a fever, with a temperature of 103.1, pulse 131, respirations 25, blood pressure 63/47, saturation 99 on vent. LABORATORY AND DIAGNOSTIC DATA: WBC 13.1, H and H 10.8 and 33.2, platelets 56. BUN 60, creatinine 4.82. MICROBIOLOGY: Repeat blood culture since August 06 negative. Sputum culture pending. DIAGNOSTICS: Chest x-ray this morning revealed low lung volumes with compressive changes in the bilateral lung bases. Small bilateral pleural effusions. Patchy airspace opacities throughout both lungs. May represent pulmonary edema or pneumonia, unchanged. INDWELLING: The patient has endotracheal tube, left subclavian triple-lumen catheter, femoral Pool catheter. ANTIMICROBIALS: Vancomycin, amikacin, meropenem. PHYSICAL EXAMINATION: This is an ill-appearing, elderly man who is intubated, obtunded, in no distress. HEENT: Head atraumatic, normocephalic. Sclerae icteric with scleral edema. Buccal mucosa dry. NECK: Supple. CHEST: With chest rise symmetrical. Breath sounds diminished at bases with scattered crackles. HEART: S1, S2. Tachycardic, regular. ABDOMEN: Distended. Bowel sounds absent. Positive ascites. EXTREMITIES: With bilateral trace edema, cyanosis and mottled. ASSESSMENT: 1. Sepsis with shock and multisystem organ failure. 2. Acute respiratory failure, possible aspiration pneumonia. 3. Fluid overload. 4. Malignant ascites. Rule out SBP. So far, ascitic fluid on August 02 cultures were negative. 5. Acute renal failure. 6. Anemia. 7. Thrombocytopenia. 8. Hepatocellular lymphoma. 9. Large pleural effusion. 10. Mild polymicrobial urinary tract infection on admission, had been on antibiotics. PLAN: The patient is doing poorly. Remains on multiple pressors. He is a chemical code only. Prognosis poor. Continue broad-spectrum coverage. Dictated By: Haris Avalos NP /kwesi/robin /Document#: [id number]
[2017-08-08] MEDS ORDERED: AMIODARONE 900 MG in DEXTROSE 5% 482 ML IV SCH (16:00)
--- NOTE | 2017-08-08 16:10 | PN ---
Date/Time of Note Date/Time of Note DATE: 08/08/17 TIME: 16:05 Assessment/Plan VTE Prophylaxis VTE Prophylaxis Intervention: heparin Lines/Catheters IV [facility]ter [facility]from [facility]): HODA Central line still needed: Yes Urinary Cath still in place: No Assessment/Plan Chief Complaint/Hosp Course 1. Status post cardiopulmonary arrest with return of spontaneous circulation on 08/06/2017. Currently intubated. Remains on pressors. Poor prognosis. Await neurologic recovery. Patient was made a chemical code on 08/08/2017. 2. Hypotension. The patient requiring pressors. Etiology could be multifactorial including hypovolemic along with sepsis. On antibiotics for underlying sepsis with underlying septic shock probably secondary to UTI ( colony count is only <10,000/ml). Fluid WBC from paracentesis fluid 676. 3. Acute respiratory failure, hypoxic. Most probably secondary to underlying pleural effusion that is worsening. Status post intubation on 08/06/2017. 4. Large right-sided pleural effusion. New onset. Possibly malignant in origin. Management as per pulmonology. 5. Hepatocellular B-cell lymphoma with malignant ascites. Undergoes chemotherapy at [facility]. Continue supportive care. 6. Recurrent ascites. Malignant. S/P paracentesis on 08/02/2017. 7. Acute kidney injury. Nonoliguric. Etiology could be hemodynamics versus others. Use nephrotoxic medications with caution. Nephrology following. The patient was started on hemodialysis on 08/06/2017, but could not tolerate the procedure. 8. Sinus tachycardia. Etiology unclear. Thyroid panel within normal limits. Status post amiodarone. Cardiology following. 9. Metabolic acidosis. Probably secondary to acute kidney injury. Bicarbonate as per nephrology. Nephrology following the patient. Patient too unstable for hemodialysis. 10. Anemia. Normocytic and hypochromic. Most probably anemia of chronic disease. Monitor H&H closely. 11. Fluids, electrolytes, and nutrition. NPO. 12. DVT prophylaxis. Subcutaneous heparin. 13. Gastrointestinal prophylaxis. Proton pump inhibitors. 14. Plan. Continue pressors for blood pressure support. Poor prognosis. Palliative care following. He was made a chemical code today. Case discussed with Dr. Crabtree. Had a lengthy conversation with the patient's family including the poor prognosis and the likelihood of the patient going into cardiopulmonary arrest at any time. Family finally decided on making the patient a chemical code only. Critical care time: 45 minutes. Problems: Subjective 24 Hr Interval Summary Free Text/Dictation Patient remains on 3 pressors. The patient on cooling measures for persistent hyperthermia. Exam/Review of Systems Vital Signs Vitals Vital Signs Date Time Temp Pulse Resp B/P Pulse Ox O2 Delivery O2 Flow Rate FiO2 08/08/17 15:45 142 29 101/53 Mechanical Ventilator 08/08/17 15:00 100 100 08/08/17 15:00 102.1 08/06/17 10:30 5.0 Intake and Output 08/07/17 08/07/17 08/08/17 15:00 23:00 07:00 Intake Total 1819.65 ml 1937.93 ml 1738.97 ml Output Total 0 ml 50 ml Balance 1819.65 ml 1887.93 ml 1738.97 ml Exam General: Adequately build 61 year-old male lying in orally intubated and mechanically ventilated. HEENT: Normocephalic, atraumatic. Eyes: Anicteric sclerae, conjunctivae clear. ENT: Nasal septum midline, oral mucosa moist. Neck supple. JVD noticed. Respiratory: Orally intubated and mechanically ventilated. Cardiovascular: Sinus tachycardia. Abdomen: Soft and nontender. Distended. Bowel sounds positive in all 4 quadrants. Genitourinary: Deferred. Extremities: No cyanosis, no clubbing. Edema of all 4 extremities. Neurologic: The patient is off sedation. No spontaneous movements. Positive gag. Results Result Diagram: 08/08/17 0330 08/08/17 0330 Results 24 hrs Laboratory Tests Test 08/08/17 03:30 08/08/17 07:00 White Blood Count 13.1 #H Red Blood Count 3.56 L Hemoglobin 10.8 L Hematocrit 33.2 L Mean Corpuscular Volume 93.3 Mean Corpuscular Hemoglobin 30.3 Mean Corpuscular Hemoglobin Concent 32.5 Red Cell Distribution Width 25.6 H Platelet Count 56 L Mean Platelet Volume 10.6 H Neutrophils % Segmented Neutrophils % (Manual) 75 Band Neutrophils % (Manual) 4 Lymphocytes % Lymphocytes % (Manual) 19 Monocytes % Monocytes % (Manual) 2 Eosinophils % Basophils % Plasma Cells % (manual) 1 Nucleated Red Blood Cells % 33 H Neutrophils # (Manual) 9.9 H Band Neutrophils # 0.5 Absolute Lymphocytes (Manual) 2.4 Lymphocytes # Monocytes # Absolute Monocytes (Manual) 0.2 L Eosinophils # Basophils # Plasma Cells # (manual) 0.1 H Nucleated Red Blood Cells # Platelet Estimate DECREASED Giant Platelets 1 H Polychromasia 3+ Poikilocytosis 3+ Anisocytosis 2+ Macrocytosis 1+ Spherocytes 1+ Target Cells 1+ Sodium Level 139 Potassium Level 4.2 Chloride Level 99 Carbon Dioxide Level 21 Anion Gap 23 H Blood Urea Nitrogen 60 H Creatinine 4.82 H Glucose Level 138 # Calcium Level 7.0 L Phosphorus Level 7.3 H Magnesium Level 2.1 Blood Gas Specimen Source Blood arterial Arterial Blood Date Drawn 08/08/2017 8:25:52 AM Arterial Blood pH (Temp corrected) 7.340 L Arterial Blood pCO2 (Temp correct) 23.6 L Arterial Blood pO2 (Temp corrected) 180.5 H Arterial Blood HCO3 12.4 L Arterial Blood Base Excess -11.5 L Arterial Blood Oxygen Saturation 98.8 H Liu Test ACCEPTAB Arterial Blood Gas Puncture Site Right Radial Arterial Blood Carboxyhemoglobin 0.3 Arterial Blood Methemoglobin 0.3 Blood Gas A-a O2 Differential 508.9 H Oxyhemoglobin Percent 98.2 Total Hemoglobin 12.3 Blood Gas Temperature 37.0 Blood Gas Respiration Rate 28.0 Blood Gas Actual Respiration Rate 34 Blood Gas Modality VENT - AC FiO2 100.0 Blood Gas Low PEEP Setting 5.0 Blood Gas Notified Whom DT Blood Gas Notified Time 08/08/2017 8:48:29 AM Medications Medications Current Medications Ondansetron HCl (Zofran Inj) 4 mg Q6H PRN IV NAUSEA AND/OR VOMITING Last administered on 08/04/17 19:50; Admin Dose 4 MG; Start 08/01/17 at 17:00 Acetaminophen (Tylenol Tab) 650 mg Q6H PRN PO PAIN LEVEL 1-3 OR FEVER; Start at 17:00 Acetaminophen (Tylenol Supp) 650 mg Q6H PRN [place] PAIN LEVEL 1-3 OR FEVER Last administered on 08/07/17 13:46; Admin Dose 650 MG; Start 08/01/17 at 17:00 Acetaminophen/ Hydrocodone Bitart ([place] (5/325)) 1 tab Q6H PRN PO MODERATE PAIN LEVEL 4-6 Last administered on 08/06/17 02:19; Admin Dose 1 TAB; Start 08/01 at 17:00 Acetaminophen/ Hydrocodone Bitart ([place] (5/325)) 2 tab Q6H PRN PO SEVERE PAIN LEVEL 7-10; Start 08/01/17 at 17:00 Morphine Sulfate (morphine) 2 mg Q4H PRN IV SEVERE PAIN LEVEL 7-10 Last administered on 08/06/17 11:36; Admin Dose 2 MG; Start 08/01/17 at 17:00 Docusate Sodium (Colace) 100 mg Q12H PRN PO CONSTIPATION; Start 08/01/17 at 17: 00 Magnesium Hydroxide (Milk Of Mag) 30 ml DAILY PRN PO CONSTIPATION; Start at 17:00 Bisacodyl (Dulcolax Supp) 10 mg DAILY PRN [place] CONSTIPATION; Start 08/01/17 at 17: 00 Heparin Sodium (Porcine) 5000 unit 5,000 unit Q8 SC Last administered on 05:25; Admin Dose 5,000 UNIT; Start 08/02/17 at 14:00 Sodium Chloride (NS) 1,000 ml @ 0 mls/hr Q0M IV Last administered on 08/03/17 14:59; Admin Dose 0 MLS/HR; Start 08/03/17 at 15:00 Pantoprazole 40 mg 40 mg DAILY@06 PO Last administered on 08/06/17 06:10; Admin Dose 40 MG; Start 08/04/17 at 06:00 Midazolam HCl 50 ml @ 1 mls/hr TITRATE IV Last administered on 08/06/17 21:22; Admin Dose 3 MLS/HR; Start 08/06/17 at 11:00 Sodium Bicarbonate 150 meq/Dextrose/ Sodium Chloride 1,150 ml @ 150 mls/hr Q7H40M IV Last administered on 08/08/17 09:26; Admin Dose 150 MLS/HR; Start at 14:30 Vasopressin 60 unit/Dextrose 60 ml @ 0 mls/hr Q12H IV Last administered on 08/08 00:15; Admin Dose 0.04 MLS/HR; Start 08/06/17 at 13:00 Phenylephrine HCl 80 mg/Dextrose 250 ml @ 18.75 mls/ hr TITRATE IV Last administered on 08/08/17 11:28; Admin Dose 56.25 MLS/HR; Start 08/06/17 at 14:30 Epinephrine/ Sodium Chloride (EPINEPHrine/NS) 250 ml @ 0 mls/hr TITRATE IV ; Start 08/06/17 at 14:30 Amikacin Sulfate AMIKACIN PER PHARMACY NOTE XX ; Start 08/06/17 at 16:30 Norepinephrine 32 mg/Dextrose 250 ml @ 0.46 mls/hr TITRATE IV Last administered on 08/08/17 02:50; Admin Dose 14.06 MLS/HR; Start 08/07/17 at 09:00 Meropenem/Sodium Chloride 50 ml @ 100 mls/hr Q24H IVPB Last administered on 08:18; Admin Dose 100 MLS/HR; Start 08/08/17 at 09:00 Acetaminophen (Ofirmev 1000mg/ 100ml Iv) 100 ml @ 400 mls/hr Q6H PRN IVPB FEVER Last administered on 08/08/17 15:24; Admin Dose 400 MLS/HR; Start at 22:00 Miscellaneous Information RANDOM VANCOMYCIN LEVEL 9... ONCE ONCE XX ; Start 10/15 at 05:00; Stop 08/09/17 at 05:01 Amiodarone HCl/ Dextrose (Cordarone Iv/ D5W) 500 ml @ 0 mls/hr Q0M IV ; Start at 16:00; Status ARELI HIDALGO NP Aug 08, 2017 16:10
--- NOTE | 2017-08-08 19:25 | CONS ---
Date/Time of Note Date/Time of Note DATE: 08/08/17 TIME: 19:20 Assessment/Plan Assessment/Plan Chief Complaint/Hosp Course This is a 61 year old male who is in [facility] post cardiac arrest in the intensive care unit. Patient has a conjugated past medical history admitted here with near syncopal episode workup was in progress. According to family members he has had a recent diagnosis of lymphoma at [facility] last chemotherapy was given 2 months ago and patient was referred to [facility] for targeted therapy. Lately patient has been having increasing ascites has had multiple taps which family members states that he has felt better. Most recent paracentesis was done 3 days prior to this admission. Patient is now intubated post cardiopulmonary arrest. Patient has an underlying new pleural effusion, tense ascites, fluid and electrolyte abnormalities, mental status changes. Family members states that he has been generally deteriorating prior to this recent catastrophic hospitalization. Problems: Additional Assessment/Plan Family members are at the bedside, they are all in agreement with chemical code. He is currently on 3 pressors and will probably tonight and will probably tonight. Family supports given, we have assured them that if he displays any sign of discomfort we will medicate him appropriately. Consultation Date/Type/Reason Admit Date/Time Aug 01, 2017 at 20:56 Initial Consult Date Type of Consultation: Palliative Care Exam/Review of Systems Vital Signs Vitals Vital Signs Date Time Temp Pulse Resp B/P Pulse Ox O2 Delivery O2 Flow Rate FiO2 08/08/17 19:00 117 26 99/47 69 Mechanical Ventilator 08/08/17 18:00 100.9 08/08/17 16:40 100 08/06/17 10:30 5.0 Intake and Output 08/07/17 08/07/17 08/08/17 15:00 23:00 07:00 Intake Total 1819.65 ml 1937.93 ml 1738.97 ml Output Total 0 ml 50 ml Balance 1819.65 ml 1887.93 ml 1738.97 ml Results Result Diagram: 08/08/17 0330 08/08/17 0330 Results 24 hrs Laboratory Tests Test 08/08/17 03:30 08/08/17 07:00 White Blood Count 13.1 #H Red Blood Count 3.56 L Hemoglobin 10.8 L Hematocrit 33.2 L Mean Corpuscular Volume 93.3 Mean Corpuscular Hemoglobin 30.3 Mean Corpuscular Hemoglobin Concent 32.5 Red Cell Distribution Width 25.6 H Platelet Count 56 L Mean Platelet Volume 10.6 H Neutrophils % Segmented Neutrophils % (Manual) 75 Band Neutrophils % (Manual) 4 Lymphocytes % Lymphocytes % (Manual) 19 Monocytes % Monocytes % (Manual) 2 Eosinophils % Basophils % Plasma Cells % (manual) 1 Nucleated Red Blood Cells % 33 H Neutrophils # (Manual) 9.9 H Band Neutrophils # 0.5 Absolute Lymphocytes (Manual) 2.4 Lymphocytes # Monocytes # Absolute Monocytes (Manual) 0.2 L Eosinophils # Basophils # Plasma Cells # (manual) 0.1 H Nucleated Red Blood Cells # Platelet Estimate DECREASED Giant Platelets 1 H Polychromasia 3+ Poikilocytosis 3+ Anisocytosis 2+ Macrocytosis 1+ Spherocytes 1+ Target Cells 1+ Sodium Level 139 Potassium Level 4.2 Chloride Level 99 Carbon Dioxide Level 21 Anion Gap 23 H Blood Urea Nitrogen 60 H Creatinine 4.82 H Glucose Level 138 # Calcium Level 7.0 L Phosphorus Level 7.3 H Magnesium Level 2.1 Blood Gas Specimen Source Blood arterial Arterial Blood Date Drawn 08/08/2017 8:25:52 AM Arterial Blood pH (Temp corrected) 7.340 L Arterial Blood pCO2 (Temp correct) 23.6 L Arterial Blood pO2 (Temp corrected) 180.5 H Arterial Blood HCO3 12.4 L Arterial Blood Base Excess -11.5 L Arterial Blood Oxygen Saturation 98.8 H Liu Test ACCEPTAB Arterial Blood Gas Puncture Site Right Radial Arterial Blood Carboxyhemoglobin 0.3 Arterial Blood Methemoglobin 0.3 Blood Gas A-a O2 Differential 508.9 H Oxyhemoglobin Percent 98.2 Total Hemoglobin 12.3 Blood Gas Temperature 37.0 Blood Gas Respiration Rate 28.0 Blood Gas Actual Respiration Rate 34 Blood Gas Modality VENT - AC FiO2 100.0 Blood Gas Low PEEP Setting 5.0 Blood Gas Notified Whom DT Blood Gas Notified Time 08/08/2017 8:48:29 AM Medications Medications Current Medications Ondansetron HCl (Zofran Inj) 4 mg Q6H PRN IV NAUSEA AND/OR VOMITING Last administered on 08/04/17t 19:50; Admin Dose 4 MG; Start 08/01/17 at 17:00 Acetaminophen (Tylenol Tab) 650 mg Q6H PRN PO PAIN LEVEL 1-3 OR FEVER; Start at 17:00 Acetaminophen (Tylenol Supp) 650 mg Q6H PRN IN PAIN LEVEL 1-3 OR FEVER Last administered on 08/07/17 13:46; Admin Dose 650 MG; Start 08/01/17 at 17:00 Acetaminophen/ Hydrocodone Bitart ([place] (5/325)) 1 tab Q6H PRN PO MODERATE PAIN LEVEL 4-6 Last administered on 08/06/17 02:19; Admin Dose 1 TAB; Start 08/01 at 17:00 Acetaminophen/ Hydrocodone Bitart ([place] (5/325)) 2 tab Q6H PRN PO SEVERE PAIN LEVEL 7-10; Start 08/01/17 at 17:00 Morphine Sulfate (morphine) 2 mg Q4H PRN IV SEVERE PAIN LEVEL 7-10 Last administered on 08/06/17 11:36; Admin Dose 2 MG; Start 08/01/17 at 17:00 Docusate Sodium (Colace) 100 mg Q12H PRN PO CONSTIPATION; Start 08/01/17 at 17: 00 Magnesium Hydroxide (Milk Of Mag) 30 ml DAILY PRN PO CONSTIPATION; Start at 17:00 Bisacodyl (Dulcolax Supp) 10 mg DAILY PRN IN CONSTIPATION; Start 08/01/17 at 17: 00 Heparin Sodium (Porcine) 5000 unit 5,000 unit Q8 SC Last administered on 05:25; Admin Dose 5,000 UNIT; Start 08/02/17 at 14:00 Sodium Chloride (NS) 1,000 ml @ 0 mls/hr Q0M IV Last administered on 08/03/17 14:59; Admin Dose 0 MLS/HR; Start 08/03/17 at 15:00 Pantoprazole 40 mg 40 mg DAILY@06 PO Last administered on 08/06/17 06:10; Admin Dose 40 MG; Start 08/04/17 at 06:00 Midazolam HCl 50 ml @ 1 mls/hr TITRATE IV Last administered on 08/06/17 21:22; Admin Dose 3 MLS/HR; Start 08/06/17 at 11:00 Sodium Bicarbonate 150 meq/Dextrose/ Sodium Chloride 1,150 ml @ 150 mls/hr Q7H40M IV Last administered on 08/08/17 16:15; Admin Dose 150 MLS/HR; Start at 14:30 Vasopressin 60 unit/Dextrose 60 ml @ 0 mls/hr Q12H IV Last administered on 08/08 00:15; Admin Dose 0.04 MLS/HR; Start 08/06/17 at 13:00 Phenylephrine HCl 80 mg/Dextrose 250 ml @ 18.75 mls/ hr TITRATE IV Last administered on 08/08/17 16:09; Admin Dose 56.25 MLS/HR; Start 08/06/17 at 14:30 Epinephrine/ Sodium Chloride (EPINEPHrine/NS) 250 ml @ 0 mls/hr TITRATE IV ; Start 08/06/17 at 14:30 Amikacin Sulfate AMIKACIN PER PHARMACY NOTE XX ; Start 08/06/17 at 16:30 Norepinephrine 32 mg/Dextrose 250 ml @ 0.46 mls/hr TITRATE IV Last administered on 08/08/17 18:00; Admin Dose 14.06 MLS/HR; Start 08/07/17 at 09:00 Meropenem/Sodium Chloride 50 ml @ 100 mls/hr Q24H IVPB Last administered on 08:18; Admin Dose 100 MLS/HR; Start 08/08/17 at 09:00 Acetaminophen (Ofirmev 1000mg/ 100ml Iv) 100 ml @ 400 mls/hr Q6H PRN IVPB FEVER Last administered on 08/08/17 15:24; Admin Dose 400 MLS/HR; Start at 22:00 Miscellaneous Information RANDOM VANCOMYCIN LEVEL 9... ONCE ONCE XX ; Start 10/15 at 05:00; Stop 08/09/17 at 05:01 Amiodarone HCl/ Dextrose (Cordarone Iv/ D5W) 500 ml @ 16.7 mls/hr Q24H IV Last administered on 08/08/17 16:16; Admin Dose 16.7 MLS/HR; Start 08/08/17 at 16:00 WILD TODD Aug 08, 2017 19:25
[2017-08-09] VITALS (30 sets, daily range): BP systolic 55–119; BP diastolic 26–73; PULSE 0–163; RESP 0–28
[2017-08-09] MEDS: VASOPRESSIN 60 UNIT in DEXTROSE 5% 57 ML IV SCH (01:10)
[2017-08-09] MEDS: PHENYLephrine 80 MG in DEXTROSE 5% 242 ML IV SCH (01:11)
[2017-08-09] MEDS: SODIUM BICARBONATE (IV ADD) 150 MEQ in DEXTROSE 5%-0.45% NACL 1,000 ML IV SCH (03:50)
[2017-08-09] MEDS: morphine 2 MG INJ IV PRN (04:16)
[2017-08-09] MEDS: PANTOPRAZOLE (EC) 40 MG TAB PO SCH (05:34)
[2017-08-09] MEDS: HEPARIN 5,000 UNIT/0.5 ML VIAL SC SCH (05:34)
[2017-08-09] MEDS ORDERED: morphine 4 MG/ML VIAL IV PRN (06:41)
--- NOTE | 2017-08-09 08:35 | EN ---
Date/Time of Note Date/Time of Note DATE: 08/09/17 TIME: 08:33 Event Note Medicine Medicine Event Note Pronouncement Note Patient seen and examined at the bedside. Non responsive to vigour sternal rub. Non responsive to verbal stimuli. Pupils fixed and non reactive to light. No heart sounds on auscultation. Patient pronounced at 7:58AM. Family present at the bedside. Primary team aware. SHAUNA CLOUD Aug 09, 2017 08:35
--- NOTE | 2017-08-09 14:47 | PN ---
DATE: 08/09/2017 SUBJECTIVE DATA: The patient is critically ill. The patient is likely near . No other events noted. OBJECTIVE DATA: VITAL SIGNS: Blood pressure is 89/58, respirations 28, pulse 81, temperature 98.6. HEENT: Head is normocephalic. NECK: Supple. HEART: Regular rate. LUNGS: Diminished breath sounds base. ABDOMEN: Soft, nontender to palpation. No guarding. EXTREMITIES: Negative for clubbing, cyanosis. No edema. DERMATOLOGIC: Clear, no rashes. MUSCULOSKELETAL: No joint effusion. NEUROLOGIC: No change in exam. MEDICATIONS: Reviewed. LABORATORY AND DIAGNOSTIC DATA: Reviewed. No new labs this morning. ASSESSMENT AND PLAN: 1. Aneuric acute kidney injury. 2. Metabolic acidosis. 3. Anemia. 4. Mineral bone disorder. 5. Septic shock. 6. Lymphoma. 7. Tachyarrhythmia. 8. Ventilatory-dependent respiratory failure. 9. Encephalopathy. 10. Pleural effusion. The patient is nearing , unlikely to survive. Continue current medical management. The patient has been stable for hemodialysis. Dictated By: Ravin Chandler DO /[email or web address]/[email or web address] /Document#: [id number]
--- NOTE | 2017-08-09 19:31 | QN ---
Documentation Job number: [id number] Comment summary dictated. ARELI BRANNON NP Aug 09, 2017 19:31
--- NOTE | 2017-08-09 20:51 | DES ---
DATE OF ADMISSION: 08/01/2017. DATE OF EXPIRATION: 08/09/2017. TIME OF EXPIRATION: 7:58 a.m. PRIMARY CAUSES OF : Cardiopulmonary arrest (seconds). SECONDARY CAUSES OF : 1. Acute respiratory failure, dated 08/06/2017 (days). 2. Hypotension, dated 08/01/2017 (days). 3. Large right-sided pleural effusion, dated 08/06/2017 (days). 4. Acute kidney injury, dated 08/01/2017 (days). 5. Metabolic acidosis, dated 08/01/2017 (days). 6. Atrial fibrillation, dated 08/06/2017 (days). FINAL DIAGNOSES: 1. Hypovolemic shock. 2. Acute hypoxic respiratory failure. 3. Large right pleural effusion and small left pleural effusion. 4. Hepatocellular B-cell lymphoma with malignant ascites. 5. Recurrent ascites. 6. Acute kidney injury. 7. Metabolic acidosis. 8. Normocytic and hypochromic anemia. CONSULTANTS: 1. Nephrology. 2. Infectious disease. 3. Cardiology. 4. Pulmonology. 5. Palliative Care. 6. Vascular Surgery HOSPITAL COURSE: This is a 61-year-old male with a past medical history of essential hypertension and hepatocellular B-cell lymphoma diagnosed in 2005, who was getting his cancer care at [facility] who came to the emergency room on 08/01/2017 with reported dizziness and abdominal distention. The patient's initial workup in the emergency room showed a sodium of 127 with a potassium of 6.5, and BUN of 4.5, and creatinine of 2.52. The patient was noticed to be tachycardic and hypotensive. The patient denied any chest pain, shortness of breath, dysuria or subjective fevers. Provided the patient's history of present illness, his comorbidities and the diagnostic findings, a clinical decision was made to admit the patient in an inpatient setting to have him further evaluated. The patient was admitted to the inpatient intensive care unit. The patient was started on IV pressor therapy for underlying hypotension. The reason for the patient's hypotension remained unclear. It was deemed that the patient has underlying hypovolemic shock. The patient underwent a 2D echocardiogram that showed preserved left ventricular ejection fraction. Echocardiogram did not show any dilated IVC. Hence, the patient was treated with fluid replacement. The patient also underwent a paracentesis on 08/02/2017. The patient was given albumin for intravascular volume repletion following the paracentesis. Nevertheless, the patient remained on IV pressors. The patient was also evaluated for any underlying infectious etiology. The patient's urine culture from 08/01/2017 showed positive enterococcus species and Pseudomonas aeruginosa. However, the patient's colony count was less than 10,000 CFU per mL for both bacteria. The patient was maintained on empiric antibiotics. Infectious Disease consult was sought for additional help. The patient's fluid analysis from paracentesis on 08/02/2017 showed WBC of 676. The patient consistently remained tachycardic. Hence, a cardiology consult was obtained. Cardiology agreed with fluid resuscitation since the patient was hypovolemic with resultant tachycardia. During the patient's hospital course, the patient was noticed to have atrial fibrillation. The patient was maintained on amiodarone with improvement of the patient's heart rhythm. The patient remained more or less stable during the first few days of his ICU stay. On 08/06/2017, the patient was noted to be progressively becoming short of breath. The patient was also noticed to have significantly worsening ascites. Although a repeat paracentesis was ordered on 08/05/2107, this was not done by Interventional Radiology, stating that the patient has only a small amount of ascites. On 08/06/2017, the patient's chest x-ray showed large right-sided pleural effusion with a small left pleural effusion that was not evident on his previous chest x-ray done on 08/03/2017. The patient also had an ABG done. Patient's ABG showed significant metabolic acidosis. Consequently, the patient was intubated on 08/06/2017. The patient had to be started on multiple pressors for blood pressure support from 08/06/2017. Meanwhile, the patient had a code blue on 08/06/2017. The patient achieved return of spontaneous circulation after CPR. Meanwhile, the patient's condition was getting worse. The patient's renal function was getting worse and the patient had to be started on hemodialysis. However, the patient was unable to tolerate hemodialysis because of persistent hypotension and hemodynamic instability. Hence, the patient's hemodialysis had to be aborted. At the same time, Palliative Care has been following the patient from 08/06/2017 to the patient's code status. The patient has a very poor prognosis based on his underlying malignancy and the current cardiopulmonary arrest with ROSC. Palliative Care and the consulting physicians as well as the under primary care provider have been talking to the patient's family on a daily basis to address the code status. On 08/07/2017, the patient was made a chemical code in the morning. Later on, 08/07/2017, the patient was made a DNR. On 08/09/2017, the patient's family requested to let the vasopressor medications run dry and not replenish them. The patient's family did not want to turn off the medications completely, but wanted to let them run dry without any morphine drip. The patient was noted to have no signs of life later on the morning of 08/09/2017. The patient was declared on 08/09/2017 at 7:58 a.m. The patient's family was given time for grieving at the bedside. PERTINENT LAB, DIAGNOSIS, AND PROCEDURES: 1. Insertion of right femoral hemodialysis catheter on 08/06/2017. 2. Oral intubation on 08/06/2017. 3. Paracentesis on 08/02/2017. 4. 2D echocardiogram. Ejection fraction of 60 percent, abnormal diastolic function. 5. Bilateral lower extremity venous Doppler study negative for any deep vein thrombosis. 6. Carotid Doppler study, no evidence for hemodynamically significant stenosis. 7. Latest CBC, WBC 13.1, hemoglobin 10.8, hematocrit 33.2, platelet count 56. 8. Latest BMP, sodium 139, potassium 4.2, chloride 99, carbon dioxide 20, anion gap 23, BUN 16, and creatinine 4.8, glucose 130, calcium 7.0, alkaline phosphatase 1.3, magnesium 2.1. 9. Hemoglobin A1c 6.0. 10. Fasting lipid panel, triglycerides 187, total cholesterol 133, LDL 76, HDL 20. At this time, I would like to thank all the consultants for seeing the patient, doing the necessary procedures, and providing clinical recommendations. The case and management of this patient was fully discussed with Dr. Yeison Corona. Dictated By: Josiah Cisse NP /[email or web address]/[email or web address] /Document#: [id number] ARTHUR
--- NOTE | 2017-08-10 11:24 | CONS ---
Date/Time of Note Date/Time of Note DATE: 08/10/17 TIME: 11:22 Assessment/Plan Assessment/Plan Chief Complaint/Hosp Course This is a 61 year old male who is in [facility] post cardiac arrest in the intensive care unit. Patient has a conjugated past medical history admitted here with near syncopal episode workup was in progress. According to family members he has had a recent diagnosis of lymphoma at [facility] last chemotherapy was given 2 months ago and patient was referred to [facility] for targeted therapy. Lately patient has been having increasing ascites has had multiple taps which family members states that he has felt better. Most recent paracentesis was done 3 days prior to this admission. Patient is now intubated post cardiopulmonary arrest. Patient has an underlying new pleural effusion, tense ascites, fluid and electrolyte abnormalities, mental status changes. Family members states that he has been generally deteriorating prior to this recent catastrophic hospitalization. Problems: Additional Assessment/Plan posht date note for 08/07 No change in clinical course.. I will fu with family Consultation Date/Type/Reason Admit Date/Time Aug 01, 2017 at 20:56 Type of Consultation: Palliative Care Exam/Review of Systems Vital Signs Vitals Vital Signs Date Time Temp Pulse Resp B/P Pulse Ox O2 Delivery O2 Flow Rate FiO2 08/09/17 08:00 0 0 08/09/17 07:45 119/73 62 08/09/17 05:00 Mechanical Ventilator 08/09/17 04:55 100 08/09/17 04:00 97.9 08/06/17 10:30 5.0 Results Result Diagram: 08/08/17 0330 08/08/17 0330 WILD TODD Aug 10, 2017 11:24
== END 2017-08-09 07:58 | disposition expired | DRG 871 ==
LOC: E/R 09:54 → ICU 20:56
PROVIDERS: ADMIT Internal Medicine; ATTEND Internal Medicine
PROC: 06HY33Z Insertion of Infusion Device into Lower Vein, Percutaneous Approach (ICD-10-PCS; 2017-08-02)
PROC: 5A1945Z Respiratory Ventilation, 24-96 Consecutive Hours (ICD-10-PCS; principal; 2017-08-06)
PROC: 0BH17EZ Insertion of Endotracheal Airway into Trachea, Via Natural or Artificial Opening (ICD-10-PCS; 2017-08-06)
PROC: 5A12012 Performance of Cardiac Output, Single, Manual (ICD-10-PCS; 2017-08-06)
DX: A41.9 Sepsis, unspecified organism (principal); R65.21 Severe sepsis with septic shock; N17.0 Acute kidney failure with tubular necrosis; J96.01 Acute respiratory failure with hypoxia; R57.1 Hypovolemic shock; G92 Toxic encephalopathy; R18.0 Malignant ascites; E87.2 Acidosis; D61.810 Antineoplastic chemotherapy induced pancytopenia; J91.0 Malignant pleural effusion; K65.2 Spontaneous bacterial peritonitis; Z94.81 Bone marrow transplant status; E87.1 Hypo-osmolality and hyponatremia; C85.19 Unspecified B-cell lymphoma, extranodal and solid organ sites; N39.0 Urinary tract infection, site not specified; Z99.11 Dependence on respirator [ventilator] status; E87.5 Hyperkalemia; E86.0 Dehydration; D63.8 Anemia in other chronic diseases classified elsewhere; I10 Essential (primary) hypertension; K74.60 Unspecified cirrhosis of liver; Z87.891 Personal history of nicotine dependence; I48.91 Unspecified atrial fibrillation; Z66 Do not resuscitate; D69.59 Other secondary thrombocytopenia; B96.5 Pseudomonas (aeruginosa) (mallei) (pseudomallei) as the cause of diseases classified elsewhere; B95.2 Enterococcus as the cause of diseases classified elsewhere
CPT/HCPCS: 31500; 36415; 36600; 71010; 76775; 80048; 80053; 80061; 80202; 81001; 82270; 82533; 82550; 82553; 82803; 82962; 83036; 83605; 83615; 83735; 83880; 84100; 84145; 84157; 84436; 84439; 84443; 84479; 84484; 84560; 85025; 85378; 85610; 85730; 86850; 86900; 86901; 87040; 87070; 87081; 87086; 87102; 87116; 88104; 88305; 89051; 89220; 90935; 93005; 93306; 93880; 93970; 93971; 94002; 94003; 94664; 94770; 96365; 96366; 96367; 96368; 96375; 96376; C9113; J0131; J0171; J0278; J0282; J1644; J1815; J2185; J2270; J2370; J2405; J2543; J3370; J7030; J7042; J7050; J7060; J7070; P9045; P9047